=== PATIENT | female | born 1955 | race Caucasian/White ===

== ENCOUNTER → 2016-11-09 | Outpatient (REF) | payer BC | LOC: M LAB REF 17:24 | PROVIDERS: ATTEND Physician Assistant Medical | DX: J11.1 Influenza due to unidentified influenza virus with other respiratory manifestations (principal) ==

== ENCOUNTER → 2017-01-27 | Outpatient (CLI) | payer BC ==
--- NOTE | 2017-01-27 13:22 | REPMRS ---
Patient History The patient states she had a clinical breast exam in 12/2016. Patient is postmenopausal and is nulliparous. Family history of breast cancer in maternal aunt at age 50 or over and breast cancer in maternal cousin at age 50 or over. Digital Woman Screen Mammo: January 27, 2017 - Exam #: [id number] Bilateral CC and MLO view(s) were taken. Technologist: Fior Miller, Technologist Prior study comparison: June 28, 2014, digital woman screen mammo performed at [facility]. FINDINGS: There are scattered fibroglandular densities. There has been no change in the appearance of the mammogram from the prior studies. There is a mild amount of residual fibroglandular tissue which is fairly symmetric. There is no interval development of dominant mass, architectural distortion, or clustered microcalcification suggestive of malignancy. ASSESSMENT: BI-RADS/ACR category 1 mammogram. Negative. Recommendation Routine screening mammogram in 1 year (for women over age 40). This mammogram was interpreted with the aid of an FDA-approved computer-aided dectection system. Electronically Signed By: Constantin Hawley MD 01/27/17 [id number]
== END ==
LOC: M WHC 10:49
PROVIDERS: ATTEND Physician Assistant
DX: Z12.31 Encounter for screening mammogram for malignant neoplasm of breast (principal)

== ENCOUNTER 2017-07-30 11:02 | Inpatient (IN) | payer MEDICAID, OTHER ==
[~2017-07-30] VITALS: Ht 142.2 cm; Wt 78.2 kg
[2017-07-30] MEDS ORDERED: LEVO25TA5 PO (11:15)
[2017-07-30] MEDS ORDERED: BREO1INH3 INH (11:15)
[2017-07-30 11:52] LABS: MEAN CORPUSCULAR HEMOGLOBIN 26.5 pg (27.0-33.0); MEAN CORPUSCULAR HGB CONC 32.2 g/dl (32.0-36.5); MEAN CORPUSCULAR VOLUME 82.2 fl (80.0-96.0); PLATELET COUNT, AUTOMATED 362 10^3/uL (150-450); RED CELL DISTRIBUTION WIDTH 14.5 % (11.5-14.5); WHITE BLOOD COUNT 8.9 10^3/uL (4.0-10.0)
[2017-07-30 12:24] LABS: METHADONE URINE NEGATIVE (NEGATIVE)
[2017-07-30 12:33] LABS: ALBUMIN 3.8 GM/DL (3.2-5.2); ALKALINE PHOSPHATASE 129 U/L (45-117); ALT/SGPT 24 U/L (12-78); ANION GAP 4 MEQ/L (8-16); AST/SGOT 17 U/L (7-37); BILIRUBIN,DIRECT 0.2 MG/DL (0.0-0.2); BILIRUBIN,TOTAL 0.9 MG/DL (0.2-1.0); BLOOD UREA NITROGEN 5 MG/DL (7-18); CALCIUM LEVEL 9.1 MG/DL (8.8-10.2); CARBON DIOXIDE LEVEL 31 MEQ/L (21-32); CHLORIDE LEVEL 103 MEQ/L (98-107); CREATININE FOR GFR 0.61 MG/DL (0.55-1.02); GLOMERULAR FILTRATION RATE > 60.0 (>45); GLUCOSE, FASTING 99 MG/DL (80-110); POTASSIUM SERUM 4.4 MEQ/L (3.5-5.1); SODIUM LEVEL 138 MEQ/L (136-145); TOTAL PROTEIN 7.6 GM/DL (6.4-8.2)
[2017-07-30 16:20] VITALS: BP 160/70
[2017-07-30] MEDS ORDERED: ACETAMINOPHEN TAB 650MG DOSE (2X325MG) PO PRN (17:30)
[2017-07-30] MEDS ORDERED: MOM 30ML SUSPENSION UDC PO PRN (17:30)
[2017-07-30] MEDS ORDERED: traZODone 50 MG TAB PO PRN (17:30)
[2017-07-30] MEDS ORDERED: MAALOX 30 ML SUSP *UDC PO PRN (17:30)
[2017-07-30] MEDS: ADVAIR HFA 230/21MCG INHALER INH SCH (22:09)
[2017-07-31] MEDS ORDERED: LEVOTHYROXINE 25MCG TABLET (0.025MG) PO SCH (06:00)
[2017-07-31 06:14] VITALS: BP 148/67
[2017-07-31] MEDS ORDERED: ARIPiprazole 2 MG TAB PO SCH (09:00)
--- NOTE | 2017-07-31 09:03 | HPEPDOC ---
[facility] Medical History & Physical Date of Admission Jul 30, 2017 History and Physical PCP: Alfonso DUDLEY ATTENDING: Dr. Jan Rashid HPI: 61yoF admitted to [facility] for depressive disorder, being medically examined today. No acute medical complaints today. Denies any fevers, chills, weakness, fatigue, JUAREZ, CP, SOB, cough, palpitations, abdominal pain, N/V/D or changes in bowel or bladder habits. PMHx: COPD hypothyroid Anxiety depression H/O SI, OD. PSHX: denies SOCHX: Resides in: [facility] Marital Status: single Kids: none Employment: unemployed Tobacco use: denies ETOH: 1-2 beer per week. Illicit Drugs: Denies IV Drug Use: Denies Tattoos done unprofessionally: Denies FAMHX: Mother: , CVA Father: , CVA Siblings: One brother Alive, CAD/MT Children: None Unexpected deaths due to medical reasons: None. ROS: As noted in HPI, otherwise 11pt ROS of systems reviewed and remarkable only for LMP NA, post menopausal. PE: GEN: 61 yo F, appears stated age. Well-nourished, well developed. No acute distress. Alert and oriented x 3. Does not make any eye contact. HEENT: Normocephalic, atraumatic. Pupils are equal, round, and reactive to light. Extraocular movements are intact. No nystagmus appreciated. Sclera are nonicteric. Conjunctiva without injection. Nose midline. Nasal turbinates without bogginess. EACs both patent BL. TMs both visualized and francois with good cone of light, no bulging or erythema. No facial asymmetry. Moist mucous membranes. Dentition fair. Pharynx pink and moist, no cobblestoning. Neck supple , trachea midline. No lymphadenopathy or thyromegaly appreciated. CHEST: Regular rate and rhythm, +S1, +S2 LUNGS: Clear to auscultation bilaterally. No wheezes, rales, or rhonchi. Breathing appears symmetric and easy. Patient is speaking in full sentences. No accessory muscle use. ABD: Round, soft, non-tender, non-distended. +Bowel sounds throughout. No rebound or guarding. No costovertebral angle tenderness. EXT: Pulses 2+ bilaterally dorsalis pedis and radial. No lower extremity edema appreciated. SKIN: [place], dry, warm. Capillary refill <2sec. No rashes. NEURO: Alert and oriented x 3. Cranial nerves III-XII are intact. No focal deficits appreciated. EKG: Pending A&P: 61yoF admitted to [facility] for depressive disorder 1. Psych. Plan per Psychiatry. Obtain baseline EKG to assure the safety of psychiatric medications as they can prolong the QT interval. 2. Hypothyroidism. Continue Synthroid 25 g by mouth daily. Abnormal TSH noted, check thyroid profile in a.m. 3. COPD. Continue Advair 2 inhalations twice a day. Resume Breo Ellipta at discharge. 4. Follow up with PCP on discharge. 5. Staff member Hemalatha GUTIERREZ present throughout exam. Vital Signs Vital Signs Date Time Temp Pulse Resp B/P (MAP) Pulse Ox O2 Delivery O2 Flow Rate FiO2 07/31/17 06:14 97.6 63 20 148/67 (94) 07/30/17 14:15 96 Room Air Laboratory Data Labs 24H Laboratory Tests 2 07/30/17 11:34: Nucleated Red Blood Cells % (auto) 0.0, Anion Gap 4L, Glomerular Filtration Rate > 60.0, Calcium Level 9.1, Aspartate Amino Transf (AST/SGOT) 17, Alanine Aminotransferase (ALT/SGPT) 24, Alkaline Phosphatase 129H, Total Bilirubin 0.9, Direct Bilirubin 0.2, Total Protein 7.6, Albumin 3.8, Albumin/Globulin Ratio 1.00, Thyroid Stimulating Hormone (TSH) 5.430H, Salicylates Level < 1.7L, Urine Amphetamines Screen NEGATIVE, Urine Benzodiazepines Screen NEGATIVE, Urine Opiates Screen NEGATIVE, Urine Methadone Screen NEGATIVE, Acetaminophen Level < 2.0L, Urine Barbiturates Screen NEGATIVE, Urine Phencyclidine Screen NEGATIVE, Urine Cocaine Metabolite Screen NEGATIVE, Urine Cannabinoids Screen NEGATIVE, Ethyl Alcohol Level < 0.003 CBC/BMP Laboratory Tests 07/30/17 11:34 Red Blood Count 5.44 H, Mean Corpuscular Volume 82.2, Mean Corpuscular Hemoglobin 26.5 L, Mean Corpuscular Hemoglobin Concent 32.2, Red Cell Distribution Width 14.5 Home Medications Scheduled Fluticasone/Vilanterol (Breo Ellipta 200-25 Mcg/INH) 1 Inh Inh, 1 PUFF INH DAILY Levothyroxine Sodium (Synthroid) 25 Mcg Tab, 25 MCG PO DAILY Allergies Coded Allergies: No Known Allergies (Unverified , 07/30/17) Margarita Vasquez Jul 31, 2017 09:03
[2017-07-31] MEDS: ADVAIR HFA 230/21MCG INHALER INH SCH ×2 (09:43→21:54)
--- NOTE | 2017-07-31 11:36 | MHHPEPDOC ---
General Date Of Admission: Aug 29, 2017 Legal Status: 9.39 Chief Complaint As per ED note: "[facility] " I would get a gun and blow my brains out". Pt stats she does not have access to one but thinks about it if she could get one.. History of Present Illness HISTORY OF THE PRESENT ILLNESS: As per ED note: "Patient is a 61 -year-old , female, who Pt stated she went to her brother's on July for dinner and while she was out, her cabinets were emptied and all her checks were gone, a pillow she bought for someone as a gift was also missing. Pt stated she reported it to the police and was told " we'll look into it". When pt was asked why she was here today, she stated she was going to put a gun to her head and blow her brains out. Pt did not voice any stressors in her life at this time. Pt lives alone. Pt sees Yue Sal (PCP), Dr. Delgadillo for COPD and Taina Rodriguez for counseling. Pt spoke quiet and put her face in her blanket frequently which made it difficult to understand her at times". Psychiatric Review of Systems Depression (2 or more weeks): depressed mood, anhedonia, suicidal thoughts Slime (4 or more days of): denies Psychosis: denies PTSD: denies Anxiety: situational anxiety, stressor related anxiety Anxiety/ 6 months or more of: restlessness, keyed up Past Psychiatric History Previous Psychiatric Diagnosis: Bipolar disorder, she was diagnosed in 2005 Previous Psychiatric Admissions: she was hospitalized before (once) Suicide Attempts: She t0ok pills and it didn't work ( 10 years ago) Psychiatric Follow-up: Denies Psychiatric medications: Amitriptyline, Nortriptyline, Effexor, Paxil, Zoloft, Abilify Past Medical History Medical Problems COPD, Hypothyroidism Head Injury: Yes Seizures: No Hospitalizations: Yes Surgeries: No Family Medical/Psychiatric HX Medical Problems Stroke in both parents. Psychiatric Disorders: No Addiction: No Suicide Attemps/Completions: No Addiction History nicotine, alcohol Social History Childhood: She says she had a good childhood, she learned to work since an early age Abuse/Trauma:Denies. Current Living Situation: She lived at an apartment and she believes the person that broke in on July 20, knew her. she thinks it was an inside job and she feels very scared about it.. 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 Social Support: One of her friends. Legal: Denies Marital: Not , no children Mental Status Examination General Appearance: well groomed, hospital scubs/clothing Build: overweight Demeanor: hostile, guarded Eye Contact: avoidant Activity: anxious Behavior: cooperative Speech: rapid, pressured Mood: irritable Affect: labile Thought Process: logical/linear Thought Content (Delusions): persecutory, denies SI, HI, AVH Thought Content (Other): none reported, appears paranoid Thought Content (Aggressive): none reported Perception (Hallucinations): none reported Perception (Other): none reported Cognition (Impairment of): none reported Cognition(Intelligence Est.): average Oriented: Awake, Alert, Oriented times three Judgment: Poor Diagnoses 1. Bipolar disorder, manic 2. Generalized Anxiety disorder Assessment Patient said she would have put a gun to her head and blown her brains out and she is sorry that when she overdosed 10 years ago, she wasn't able to kill herself, but she is denying depressive symptoms, she is denying manic symptoms. However, she was irritable for most of the interview, was guarded, almost hostile. by the end of the interview she had relaxed and was not guarded anymore. She laughed and joked. I believe she is going through a manic episode and probably has paranoid delusions. I have asked her if she would like Abilify to be started and she agreed to it. Initial Treatment Plan 1. Patient was admitted on a 9.39 status. 2. Complete history was obtained. 3. With patients permission, family will be contacted and database will be expanded. 4. Patients medication regimen will be reviewed and changed accordingly. 5. Patient will be provided with protected environment. 6. Patient will be treated with individual, group, and milieu therapies. 7. Patient will receive supportive psych-education. 8. Discharge planning will commence immediately. 9. Outpatient follow-up treatment will be strongly recommended. 10. The initial treatment plan will focus initially on: * Depression. * Risk for suicide. * Substance abuse. ESTIMATED LENGTH OF STAY: 5-7DAYS. TIME SPENT COUNSELING AND COORDINATING INITIAL CARE: minutes. Vital Signs Vital Signs Date Time Temp Pulse Resp B/P (MAP) Pulse Ox O2 Delivery O2 Flow Rate FiO2 07/31/17 06:14 97.6 63 20 148/67 (94) 07/30/17 14:15 96 Room Air Medications Scheduled Fluticasone/Vilanterol (Breo Ellipta 200-25 Mcg/INH) 1 Inh Inh, 1 PUFF INH DAILY , (Reported) Levothyroxine Sodium (Synthroid) 25 Mcg Tab, 25 MCG PO DAILY, (Reported) Allergies Coded Allergies: No Known Allergies (Unverified , 07/30/17) ANURADHA MAURICIO MD Jul 31, 2017 11:36
--- NOTE | 2017-07-31 16:18 | ECGEPIP ---
Stationary ECG Study [facility] Test Date: 2017-07-31 Pat Name: DANNY JACKSON Department: Room: [place] [address] Gender: F Fagot Maker: NAOMI : 1955 Requested By: Margarita Vasquez Order Number: [id number] Reading MD: Karlie Marrero Measurements Intervals [place] Rate: 64 P: 49 MA: 156 QRS: 10 QRSD: 86 T: -2 QT: 380 QTc: 395 Interpretive Statements SINUS RHYTHM NONSPECIFIC STT-WAVE ABNORMALITY NO PRIOR Electronically Signed On 07-31-2017 16:17:41 EST by Karlie Marrero
[2017-07-31 18:00] VITALS: BP 138/63
[2017-08-01] MEDS: LEVOTHYROXINE 50MCG TABLET (0.05MG) PO SCH (06:17)
[2017-08-01 06:47] VITALS: BP 138/63
[2017-08-01 07:16] LABS: THYROXINE (T4) 11.3 UG/DL (4.5-12.0)
[2017-08-01] MEDS: ADVAIR HFA 230/21MCG INHALER INH SCH ×2 (09:05→20:20)
--- NOTE | 2017-08-01 15:17 | MHIPN ---
DATE: 08/01/2017 CHIEF COMPLAINT: Says is "doing fine." SUBJECTIVE: Seen for followup in the presence of staff. Says is doing fine and that moods are better but tends not to elaborate much. Says has been concerned about porter on at her place, including, she feels, people were moving things around in her place and possibly even taking them. Says suspects the management there of doing so. She has been there more than 10 years. Says this has never happened before. MENTAL STATUS EXAMINATION: She is lying bed with the bed sheets mostly over her and appears not wanting to engage much but is coherent. There is no agitation. No psychomotor retardation. Affect broad, somewhat incongruent with mood. Denies active suicidal thoughts or intents. No homicidal ideas or intents. Psychotic features cannot be completely ruled out in terms of paranoia. Cognition is grossly intact. Judgment and insight are quite questionable. ASSESSMENT: Bipolar disorder by history. PLAN: Continue current care and observations. Encourage participation in activities in the unit. Also continue with Abilify at a total of 7.5 mg a day.
[2017-08-01 18:00] VITALS: BP 129/71
[2017-08-02] MEDS: LEVOTHYROXINE 50MCG TABLET (0.05MG) PO SCH (06:09)
[2017-08-02] MEDS: ADVAIR HFA 230/21MCG INHALER INH SCH ×2 (08:59→20:56)
--- NOTE | 2017-08-02 16:51 | MHIPN ---
DATE: 08/02/2017 CHIEF COMPLAINT: Says feels good. SUBJECTIVE: Says has been doing well, reports no major difficulties, and that she had a good night, has been eating well. MENTAL STATUS EXAMINATION: Neat, cooperative, coherent. No agitation, no psychomotor retardation. Affect possibly mildly anxious. Denies any thoughts of harming herself or anyone else. No evidence of any psychosis at present. Judgment and insight fair. ASSESSMENT: Bipolar disorder by history. PLAN: Continue current care and participation in activities in the unit. She will be seeing the treatment team tomorrow.
[2017-08-02 18:00] VITALS: BP 132/60
[2017-08-03] MEDS: LEVOTHYROXINE 50MCG TABLET (0.05MG) PO SCH (06:14)
[2017-08-03 07:00] VITALS: BP 120/59
[2017-08-03] MEDS: ADVAIR HFA 230/21MCG INHALER INH SCH ×2 (08:08→21:01)
--- NOTE | 2017-08-03 12:44 | MHIPNPDOC ---
[facility] Progress Note Progress Note DATE OF SERVICE: 08/03/17 HISTORY: As per ED note: "[facility] " I would get a gun and blow my brains out". Pt stats she does not have access to one but thinks about it if she could get one.. History of Present Illness HISTORY OF THE PRESENT ILLNESS: As per ED note: "Patient is a 61 -year-old , female, who Pt stated she went to her brother's on July for dinner and while she was out, her cabinets were emptied and all her checks were gone, a pillow she bought for someone as a gift was also missing. Pt stated she reported it to the police and was told " we'll look into it". When pt was asked why she was here today, she stated she was going to put a gun to her head and blow her brains out. Pt did not voice any stressors in her life at this time. Pt lives alone. Pt sees Yue Sal (PCP), Dr. Delgadillo for COPD and Taina Rodriguez for counseling. Pt spoke quiet and put her face in her blanket frequently which made it difficult to understand her at times" VITAL SIGNS: See below. NEW TEST RESULTS: N/A CURRENT MEDICATIONS: See below. MENTAL STATUS EXAMINATION: Patient is a 61 year old female, who is alert, cooperative, good eye contact, dressed in personal clothes, fair grooming. Speech: Is Coherent Language skills are Good. Thought processes including: Linear, logical Thought content: Anxious thoughts about not feeling safe at her apartment. Abstract reasoning, and computation: Fair. Description of associations: Good. Description of abnormal or psychotic thoughts: Denies SI/HI, A/V hallucinations , thought delusions. Judgment: Improving. Insight: Improving. Orientation: Oriented x 3 Recent and remote memory: Intact Attention span and concentration: Good Language: Good Fund of knowledge: Adequate Mood: Anxious Affect: Anxious DIAGNOSES: 1. Bipolar disorder, manic 2. Generalized Anxiety disorder ASSESSMENT:Patient feels very anxious about returning home. Maybe we can look for alternative housing to keep her away from her apartment complex. MANAGEMENT PLAN: Patient's medications have been updated. she feels Abilify is working well for her. Increased it to 10 mgs. PO QHS and 5 mgs in AM. She will be receiving Zoloft 25 mgs PO QAM for depression/anxiety ( a minimal dose in order to not provoke mayte) and her levothyroxine was increased to 75 mcg. TIME SPENT: 20 minutes. Vital Signs Vital Signs Date Time Temp Pulse Resp B/P (MAP) Pulse Ox O2 Delivery O2 Flow Rate FiO2 08/03/17 07:00 99.3 63 16 120/59 (79) 08/01/17 06:47 Room Air 07/30/17 14:15 96 Current Medications Current Medications Acetaminophen (Tylenol Tab) 650 mg Q6HP PRN PO HEADACHE or DISCOMFORT; Start 07/30/17 at 17:30; Stop 08/29/17 at 17:29 Al Hydrox/Mg Hydrox/Simethicone (Mylanta) 30 ml Q4HP PRN PO HEARTBURN/ INDIGESTION; Start 07/30/17 at 17:30; Stop 08/29/17 at 17:29 Aripiprazole (AbiLIFY) 2 mg BID PO ; Start 07/31/17 at 09:00; Stop 07/31/17 at 12:24; Status DC Aripiprazole (AbiLIFY) 2.5 mg QAM PO Last administered on 08/03/17 08:07; Start 08/01/17 at 09:00; Stop 08/30/17 at 08:59 Aripiprazole (AbiLIFY) 5 mg QHS PO Last administered on 08/02/17 20:56; Start 07/31/17 at 21:00; Stop 08/30/17 at 20:59 Home Med (Med Rec Complete!) ASDIRECTED XX ; Start 07/30/17 at 14:30; Stop at 14:32; Status DC Levothyroxine Sodium (Synthroid) 25 mcg DAILY@0600 PO Last administered on 07/31 06:46; Start 07/31/17 at 06:00; Stop 07/31/17 at 12:06; Status DC Levothyroxine Sodium (Synthroid) 50 mcg DAILY@0600 PO Last administered on 08/03 06:14; Start 08/01/17 at 06:00; Stop 08/31/17 at 05:59 Magnesium Hydroxide (Milk Of Magnesia) 30 ml DAILYPRN PRN PO CONSTIPATION; Start 07/30/17 at 17:30; Stop 08/29/17 at 17:29 Salmeterol Xinafoate/ Fluticasone (Advair Hfa 230/ 21) 2 puff BID INH Last administered on 08/03/17t 08:08; Start 07/30/17 at 21:00; Stop 08/29/17 at 20: 59 Trazodone HCl (Desyrel) 50 mg QHSP PRN PO INSOMNIA; Start 07/30/17 at 17:30; Stop 08/29/17 at 17:29 Allergies Coded Allergies: No Known Allergies (Unverified , 07/30/17) ANURADHA MAURICIO MD Aug 03, 2017 12:44
[2017-08-03] MEDS: SERTRALINE HCL 25 MG TABLET PO SCH (12:47)
[2017-08-03 18:00] VITALS: BP 144/67
[2017-08-03] MEDS ORDERED: ARIPiprazole 10 MG TAB PO SCH (21:00)
[2017-08-04 06:00] VITALS: BP 122/60
[2017-08-04] MEDS ORDERED: LEVOTHYROXINE 75MCG TABLET (0.075MG) PO SCH (06:00)
[2017-08-04] MEDS: ADVAIR HFA 230/21MCG INHALER INH SCH (08:21)
[2017-08-04] MEDS: SERTRALINE HCL 25 MG TABLET PO SCH (08:21)
--- NOTE | 2017-08-04 10:27 | MHIPNPDOC ---
[facility] Progress Note Progress Note DATE OF SERVICE: 08/04/17 HISTORY: As per ED note: "[facility] " I would get a gun and blow my brains out". Pt stats she does not have access to one but thinks about it if she could get one.. History of Present Illness HISTORY OF THE PRESENT ILLNESS: As per ED note: "Patient is a 61 -year-old , female, who Pt stated she went to her brother's on July for dinner and while she was out, her cabinets were emptied and all her checks were gone, a pillow she bought for someone as a gift was also missing. Pt stated she reported it to the police and was told " we'll look into it". When pt was asked why she was here today, she stated she was going to put a gun to her head and blow her brains out. Pt did not voice any stressors in her life at this time. Pt lives alone. Pt sees Yue Sal (PCP), Dr. Delgadillo for COPD and Taina Rodriguez for counseling. Pt spoke quiet and put her face in her blanket frequently which made it difficult to understand her at times" VITAL SIGNS: See below. NEW TEST RESULTS: N/A CURRENT MEDICATIONS: See below. MENTAL STATUS EXAMINATION: Patient is a 61 year old female, who is pleasant, cooperative, with good eye contact, dressed in hospital clothes Speech: Is spontaneous and fluent Language skills are intact Thought processes including: Linear, rational Thought content: Anxious thoughts about not feeling safe at her apartment. Abstract reasoning, and computation: Fair. Description of associations: Good. Description of abnormal or psychotic thoughts: Denies SI/HI, A/V hallucinations , thought delusions. Judgment: Improved Insight: Improved Orientation: Oriented x 3 Recent and remote memory: Intact Attention span and concentration: Good Language: Good Fund of knowledge: Adequate Mood: Euthymic Affect: Euthymic DIAGNOSES: 1. Bipolar disorder, manic 2. Generalized Anxiety disorder ASSESSMENT: Patient is in a better mood, she's ready to be discharged, she's not suicidal, not homicidal and not psychotic. She will be going back to her apartment and in one month she will try to go somewher else because she continues to feel threatened by whoever broke into it. She's going back now because nik already paid the rent for it. MANAGEMENT PLAN: Will d/c her on the same meds. TIME SPENT: 20 minutes. Vital Signs Vital Signs Date Time Temp Pulse Resp B/P (MAP) Pulse Ox O2 Delivery O2 Flow Rate FiO2 08/04/17 06:00 97.8 60 14 122/60 (80) 08/01/17 06:47 Room Air 07/30/17 14:15 96 Current Medications Current Medications Acetaminophen (Tylenol Tab) 650 mg Q6HP PRN PO HEADACHE or DISCOMFORT; Start 07/30/17 at 17:30; Stop 08/29/17 at 17:29 Al Hydrox/Mg Hydrox/Simethicone (Mylanta) 30 ml Q4HP PRN PO HEARTBURN/ INDIGESTION; Start 07/30/17 at 17:30; Stop 08/29/17 at 17:29 Aripiprazole (AbiLIFY) 2 mg BID PO ; Start 07/31/17 at 09:00; Stop 07/31/17 at 12:24; Status DC Aripiprazole (AbiLIFY) 2.5 mg QAM PO Last administered on 08/03/17 08:07; Start 08/01/17 at 09:00; Stop 08/03/17 at 12:32; Status DC Aripiprazole (AbiLIFY) 5 mg QAM PO Last administered on 08/04/17 08:21; Start 08/04/17 at 09:00; Stop 09/03/17 at 08:59 Aripiprazole (AbiLIFY) 5 mg QHS PO Last administered on 08/02/17 20:56; Start 07/31/17 at 21:00; Stop 08/03/17 at 12:40; Status DC Aripiprazole (AbiLIFY) 10 mg QHS PO Last administered on 08/03/17 21:01; Start 08/03/17 at 21:00; Stop 09/02/17 at 20:59 Home Med (Med Rec Complete!) ASDIRECTED XX ; Start 07/30/17 at 14:30; Stop at 14:32; Status DC Levothyroxine Sodium (Synthroid) 25 mcg DAILY@0600 PO Last administered on 07/31 06:46; Start 07/31/17 at 06:00; Stop 07/31/17 at 12:06; Status DC Levothyroxine Sodium (Synthroid) 50 mcg DAILY@0600 PO Last administered on 08/03 06:14; Start 08/01/17 at 06:00; Stop 08/03/17 at 12:33; Status DC Levothyroxine Sodium (Synthroid) 75 mcg DAILY@0600 PO Last administered on 08/04 05:46; Start 08/04/17 at 06:00; Stop 09/03/17 at 05:59 Magnesium Hydroxide (Milk Of Magnesia) 30 ml DAILYPRN PRN PO CONSTIPATION; Start 07/30/17 at 17:30; Stop 08/29/17 at 17:29 Salmeterol Xinafoate/ Fluticasone (Advair Hfa 230/ 21) 2 puff BID INH Last administered on 08/04/17 08:21; Start 07/30/17 at 21:00; Stop 08/29/17 at 20: 59 Sertraline HCl (Zoloft) 25 mg DAILY PO Last administered on 08/04/17 08:21; Start 08/03/17 at 09:00; Stop 09/02/17 at 08:59 Trazodone HCl (Desyrel) 50 mg QHSP PRN PO INSOMNIA; Start 07/30/17 at 17:30; Stop 08/29/17 at 17:29 Allergies Coded Allergies: No Known Allergies (Unverified , 07/30/17) ANURADHA MAURICIO MD Aug 04, 2017 10:27
[2017-08-04] MEDS ORDERED: TRAZO50TA PO (13:26)
[2017-08-04] MEDS ORDERED: ARIP5TA PO (13:26)
[2017-08-04] MEDS ORDERED: SERT25TA PO (13:26)
[2017-08-04] MEDS ORDERED: ARIP10TAB PO ×4 (13:26→13:59)
[2017-08-04] MEDS ORDERED: LEVO75TA4 PO (13:26)
[2017-08-04] MEDS ORDERED: ARIP1TAB2 PO (13:47)
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
== END 2017-08-04 14:05 | disposition home or self-care (01) | DRG 885 ==
LOC: M ED 11:02 → M ED INP 12:39 → M PSY 15:07
PROVIDERS: ADMIT Psychiatry & Neurology Psychiatry; ATTEND Psychiatry & Neurology Psychiatry
DX: F31.9 Bipolar disorder, unspecified (principal); F41.1 Generalized anxiety disorder; J44.9 Chronic obstructive pulmonary disease, unspecified; E03.9 Hypothyroidism, unspecified; Z79.899 Other long term (current) drug therapy

== ENCOUNTER → 2017-09-23 | Outpatient (REF) | payer MEDICAID ==
[2017-09-23 12:45] LABS: BASO # 0.1 10^3/uL (0.0-0.2); BASO % 0.9 % (0.0-1.0); EOS # 0.5 10^3/uL (0.0-0.50); EOS % 5.7 % (0.0-3.0); HEMATOCRIT 42.9 % (36.0-47.0); HEMOGLOBIN 13.7 g/dl (12.0-16.0); IMMATURE GRANULOCYTE % 0.3 % (0-0); LYMPH # 1.1 10^3/uL (1.5-4.5); MEAN CORPUSCULAR HEMOGLOBIN 26.4 pg (27.0-33.0); MEAN CORPUSCULAR HGB CONC 31.9 g/dl (32.0-36.5); MEAN CORPUSCULAR VOLUME 82.8 fl (80.0-96.0); MONO # 0.4 10^3/uL (0.0-0.8); NEUTROPHILS # 6.5 10^3/uL (1.8-7.7); NEUTROPHILS % 75.1 % (36.0-66.0); PLATELET COUNT, AUTOMATED 326 10^3/uL (150-450); RED BLOOD COUNT 5.18 10^6/uL (4.00-5.40); RED CELL DISTRIBUTION WIDTH 14.4 % (11.5-14.5); WHITE BLOOD COUNT 8.6 10^3/uL (4.0-10.0)
[2017-09-23 13:26] LABS: ALBUMIN/GLOBULIN RATIO 1.14 (1.00-1.93); ALKALINE PHOSPHATASE 122 U/L (45-117); ALT/SGPT 24 U/L (12-78); ANION GAP 6 MEQ/L (8-16); AST/SGOT 24 U/L (7-37); BILIRUBIN,TOTAL 0.8 MG/DL (0.2-1.0); BLOOD UREA NITROGEN 10 MG/DL (7-18); CALCIUM LEVEL 8.7 MG/DL (8.8-10.2); CARBON DIOXIDE LEVEL 31 MEQ/L (21-32); CHLORIDE LEVEL 102 MEQ/L (98-107); CHOLESTEROL LEVEL 272 MG/DL (<200); CHOLESTEROL RISK RATIO 3.126 (<5); CREATININE FOR GFR 0.72 MG/DL (0.55-1.02); GLOMERULAR FILTRATION RATE > 60.0 (>45); GLUCOSE, FASTING 76 MG/DL (70-100); HDL CHOLESTEROL 87 MG/DL (>40); LDL CHOLESTEROL 165.2 MG/DL (<100); NON-HDL-C 185 MG/DL; POTASSIUM SERUM 4.6 MEQ/L (3.5-5.1); SODIUM LEVEL 139 MEQ/L (136-145); TOTAL PROTEIN 7.5 GM/DL (6.4-8.2); TRIGLYCERIDES LEVEL 99 MG/DL (<150)
[2017-09-23 13:35] LABS: ESTIMATED AVERAGE GLUCOSE 103 MG/DL (60-110); HEMOGLOBIN A1c 5.2 %
[2017-09-23 13:40] LABS: HEPATITIS B SURFACE ANTIBODY NEGATIVE (POSITIVE)
[2017-09-23 14:13] LABS: HEPATITIS C VIRUS ABY INDEX < 0.0 INDEX (<0.8)
[2017-09-23 14:14] LABS: HIV 1&2 SCREEN CENTAUR NEGATIVE (NEGATIVE)
== END ==
LOC: M LAB REF 11:51
DX: Z00.01 Encounter for general adult medical examination with abnormal findings (principal); E03.8 Other specified hypothyroidism; E66.01 Morbid (severe) obesity due to excess calories
CPT/HCPCS: 84443

== ENCOUNTER → 2017-10-01 | Outpatient (REF) | payer MEDICAID, MEDICARE, BC ==
[2017-10-01 13:57] LABS: APPEARANCE, URINE HAZY (CLEAR); BACTERIA, URINE AUTO NEGATIVE (NEGATIVE); BILIRUBIN, URINE AUTO NEGATIVE (NEGATIVE); BLOOD, URINE BLOOD NEGATIVE (NEGATIVE); CALCIUM OXALATE CRYSTALS MODERATE; COLOR, URINE YELLOW (YELLOW); GLUCOSE, URINE (UA) AUTO NEGATIVE (NEGATIVE); KETONE, URINE AUTO NEGATIVE (NEGATIVE); LEUKOCYTE ESTERASE, URINE AUTO NEGATIVE (NEGATIVE); MUCUS, URINE SMALL (NEGATIVE); NITRITE, URINE AUTO NEGATIVE (NEGATIVE); PROTEIN, URINE AUTO NEGATIVE (NEGATIVE); RBC, URINE AUTO 1 /HPF (0-3); SPECIFIC GRAVITY URINE AUTO 1.017 (1.002-1.035); SQUAMOUS EPITHELIAL CELL UR AU 2 /HPF (0-6); WBC, URINE AUTO 2 /HPF (0-3)
== END ==
LOC: M SMT 13:10
DX: R35.1 Nocturia (principal)

== ENCOUNTER → 2018-02-16 | Outpatient (REF) | LOC: M SMT 15:22 | DX: Z02.71 Encounter for disability determination (principal); M17.11 Unilateral primary osteoarthritis, right knee; M85.88 Other specified disorders of bone density and structure, other site; M51.37 Other intervertebral disc degeneration, lumbosacral region; M25.78 Osteophyte, vertebrae ==

== ENCOUNTER → 2018-03-05 | Outpatient (REF) | payer MEDICAID, MEDICARE, BC ==
[2018-03-05 19:00] LABS: THYROID STIMULATING HORMONE 0.163 uIU/ML (0.358-3.740)
[2018-03-05 19:00] LABS: VITAMIN B12 LEVEL 640 PG/ML
[2018-03-05 19:02] LABS: FOLATE 5.7 NG/ML
== END ==
LOC: M LAB REF 16:36
DX: G20 Parkinson's disease (principal)

== ENCOUNTER → 2018-03-12 | Outpatient (CLI) | payer MEDICARE, MEDICAID | LOC: M CARPUL 08:34 | DX: R06.01 Orthopnea (principal); R06.02 Shortness of breath | CPT/HCPCS: 93306 ==

== ENCOUNTER → 2018-06-14 | Outpatient (REF) | payer MEDICARE, MEDICAID | LOC: M LAB REF 11:34 | DX: E03.8 Other specified hypothyroidism (principal) | CPT/HCPCS: 84443 ==

== ENCOUNTER → 2018-07-01 | Outpatient (CLI) | payer OTHER, MEDICAID, MEDICARE ==
[2018-07-01 17:40] LABS: BASO # 0.1 10^3/uL (0.0-0.2); BASO % 0.7 % (0.0-1.0); EOS # 0.2 10^3/uL (0.0-0.50); EOS % 2.4 % (0.0-3.0); HEMATOCRIT 38.7 % (36.0-47.0); HEMOGLOBIN 12.4 g/dl (12.0-15.5); IMMATURE GRANULOCYTE % 0.3 % (0-3.0); LYMPH # 1.7 10^3/uL (1.5-4.5); LYMPH % 18.2 % (24.0-44.0); MEAN CORPUSCULAR HEMOGLOBIN 27.5 pg (27.0-33.0); MEAN CORPUSCULAR VOLUME 85.8 fl (80.0-96.0); MONO # 0.5 10^3/uL (0.0-0.8); MONO % 5.2 % (0.0-5.0); NEUTROPHILS # 6.7 10^3/uL (1.8-7.7); NEUTROPHILS % 73.2 % (36.0-66.0); PLATELET COUNT, AUTOMATED 264 10^3/uL (150-450); RED BLOOD COUNT 4.51 10^6/uL (4.00-5.40); RED CELL DISTRIBUTION WIDTH 14.2 % (11.5-14.5); WHITE BLOOD COUNT 9.1 10^3/uL (4.0-10.0)
[2018-07-01 17:50] LABS: ESTIMATED AVERAGE GLUCOSE 100 MG/DL (60-110); HEMOGLOBIN A1c 5.1 %
[2018-07-01 18:00] LABS: POS COUNT POS FLAG
[2018-07-01 18:07] LABS: ERYTHROCYTE SEDIMENTATION RATE 42 mm/hr (0-30)
[2018-07-01 18:11] LABS: ALBUMIN 3.7 GM/DL (3.2-5.2); ALBUMIN/GLOBULIN RATIO 1.09 (1.00-1.93); ALKALINE PHOSPHATASE 110 U/L (45-117); ALT/SGPT 18 U/L (12-78); ANION GAP 5 MEQ/L (8-16); AST/SGOT 18 U/L (7-37); BILIRUBIN,TOTAL 0.7 MG/DL (0.2-1.0); BLOOD UREA NITROGEN 3 MG/DL (7-18); CALCIUM LEVEL 9.3 MG/DL (8.8-10.2); CARBON DIOXIDE LEVEL 30 MEQ/L (21-32); CHLORIDE LEVEL 102 MEQ/L (98-107); CREATININE FOR GFR 0.66 MG/DL (0.55-1.30); GLOMERULAR FILTRATION RATE > 60.0 (>45); GLUCOSE, FASTING 81 MG/DL (70-100); POTASSIUM SERUM 4.1 MEQ/L (3.5-5.1); RHEUMATOID FACTOR QUANT < 10.0 IU/ML (<15.0); SODIUM LEVEL 137 MEQ/L (136-145); TOTAL PROTEIN 7.1 GM/DL (6.4-8.2)
[2018-07-01 18:13] LABS: FOLATE 11.3 NG/ML (>5.4)
[2018-07-06 13:39] LABS: ALPHA-1-GLOBULIN % 5.9 % (2.9-4.9)
[2018-07-06 13:40] LABS: ALBUMIN 3.98 GM/DL (3.29-5.55); ALPHA-1-GLOBULINS 0.42 GM/DL (0.17-0.41); ALPHA-2-GLOBULINS 1.08 GM/DL (0.42-0.99); ALPHA-2-GLOBULINS % 15.2 % (7.1-11.8); BETA-1-GLOBULINS 0.53 GM/DL (0.28-0.60); BETA-1-GLOBULINS % 7.4 % (4.7-7.2); BETA-2-GLOBULINS 0.38 GM/DL (0.19-0.55); BETA-2-GLOBULINS % 5.4 % (3.2-6.5); GAMMA GLOBULIN % 10.1 % (11.1-18.8); GAMMA GLOBULINS 0.72 GM/DL (0.65-1.58)
== END ==
LOC: M LAB 16:30
DX: R26.9 Unspecified abnormalities of gait and mobility (principal)
CPT/HCPCS: 82746

== ENCOUNTER → 2018-08-10 | Outpatient (REF) | payer OTHER ==
[2018-08-16 08:06] LABS: HPV HYBRID CAPTURE II Negative (Negative)
== END ==
LOC: M SFHCWAGY 10:24
DX: Z12.4 Encounter for screening for malignant neoplasm of cervix (principal)

== ENCOUNTER → 2018-10-19 | Outpatient (CLI) | payer OTHER, MEDICAID ==
[~2018-10-19] MED LIST: ARIP10TAB PO; ARIP1TAB2 PO; ARIP5TA PO; BREO1INH3 INH; LEVO25TA5 PO; LEVO75TA4 PO; SERT25TA PO; TRAZO50TA PO
[2018-10-19 12:29] LABS: BASO % 0.4 % (0.0-1.0); EOS # 0.2 10^3/uL (0.0-0.50); EOS % 1.9 % (0.0-3.0); HEMATOCRIT 40.6 % (36.0-47.0); LYMPH # 1.4 10^3/uL (1.5-4.5); LYMPH % 13.6 % (24.0-44.0); MEAN CORPUSCULAR HEMOGLOBIN 26.6 pg (27.0-33.0); MEAN CORPUSCULAR VOLUME 83.2 fl (80.0-96.0); MONO # 0.6 10^3/uL (0.0-0.8); NEUTROPHILS # 7.9 10^3/uL (1.8-7.7); NEUTROPHILS % 77.2 % (36.0-66.0); PLATELET COUNT, AUTOMATED 368 10^3/uL (150-450); RED BLOOD COUNT 4.88 10^6/uL (4.00-5.40); WHITE BLOOD COUNT 10.2 10^3/uL (4.0-10.0)
[2018-10-19 13:04] LABS: ALBUMIN 3.7 GM/DL (3.2-5.2); ALT/SGPT 25 U/L (12-78); BILIRUBIN,TOTAL 0.7 MG/DL (0.2-1.0); BLOOD UREA NITROGEN 8 MG/DL (7-18); CALCIUM LEVEL 9.3 MG/DL (8.8-10.2); CARBON DIOXIDE LEVEL 33 MEQ/L (21-32); CHLORIDE LEVEL 97 MEQ/L (98-107); CHOLESTEROL LEVEL 237 MG/DL (<200); CHOLESTEROL RISK RATIO 4.557 (<5); CREATININE FOR GFR 0.58 MG/DL (0.55-1.30); FREE T3 2.8 PG/ML (2.2-4.0); FREE T4 1.36 NG/DL (0.76-1.46); GLOMERULAR FILTRATION RATE > 60.0 (>45); GLUCOSE, FASTING 94 MG/DL (70-100); HDL CHOLESTEROL 52 MG/DL (>40); LDL CHOLESTEROL 160 MG/DL (<100); NON-HDL-C 185 MG/DL; POTASSIUM SERUM 3.9 MEQ/L (3.5-5.1); SODIUM LEVEL 137 MEQ/L (136-145); TOTAL PROTEIN 7.2 GM/DL (6.4-8.2); TRIGLYCERIDES LEVEL 127 MG/DL (<150)
[2018-10-19 13:05] LABS: TOTAL 25(OH) VITAMIN D 29.6 NG/ML (30.0-100.0)
[2018-10-19 13:07] LABS: HEMOGLOBIN A1c 5.8 %
== END ==
LOC: M LAB 11:39
PROVIDERS: ATTEND Nurse Practitioner Family
DX: I10 Essential (primary) hypertension (principal); Z13.9 Encounter for screening, unspecified; E03.8 Other specified hypothyroidism

== ENCOUNTER → 2019-02-02 | Outpatient (REF) | payer OTHER, MEDICAID ==
[~2019-02-02] MED LIST changes: -ARIP10TAB PO; +ARIP1TAB PO; +ARIP1TAB6 PO; -ARIP5TA PO; -SERT25TA PO; +SERT25TA85 PO; +TRAZ1TAB10 PO; -TRAZO50TA PO
[2019-02-02 13:52] LABS: BASO % 0.4 % (0.0-1.0); EOS # 0.3 10^3/uL (0.0-0.50); EOS % 2.3 % (0.0-3.0); HEMATOCRIT 39.2 % (36.0-47.0); HEMOGLOBIN 12.4 g/dl (12.0-15.5); LYMPH # 1.3 10^3/uL (1.5-4.5); LYMPH % 12.1 % (24.0-44.0); MEAN CORPUSCULAR HEMOGLOBIN 26.8 pg (27.0-33.0); MEAN CORPUSCULAR HGB CONC 31.6 g/dl (32.0-36.5); MEAN CORPUSCULAR VOLUME 84.8 fl (80.0-96.0); MONO # 0.7 10^3/uL (0.0-0.8); NEUTROPHILS # 8.8 10^3/uL (1.8-7.7); NEUTROPHILS % 78.7 % (36.0-66.0); PLATELET COUNT, AUTOMATED 240 10^3/uL (150-450); RED BLOOD COUNT 4.62 10^6/uL (4.00-5.40); WHITE BLOOD COUNT 11.1 10^3/uL (4.0-10.0)
[2019-02-02 14:06] LABS: ALBUMIN 3.5 GM/DL (3.2-5.2); ALT/SGPT 35 U/L (12-78); BILIRUBIN,TOTAL 1.7 MG/DL (0.2-1.0); BLOOD UREA NITROGEN 8 MG/DL (7-18); CALCIUM LEVEL 9.1 MG/DL (8.8-10.2); CARBON DIOXIDE LEVEL 32 MEQ/L (21-32); CHLORIDE LEVEL 96 MEQ/L (98-107); CHOLESTEROL LEVEL 232 MG/DL (<200); CHOLESTEROL RISK RATIO 3.682 (<5); CREATININE FOR GFR 0.74 MG/DL (0.55-1.30); GLOMERULAR FILTRATION RATE > 60.0 (>45); GLUCOSE, FASTING 106 MG/DL (70-100); HDL CHOLESTEROL 63 MG/DL (>40); LDL CHOLESTEROL 155 MG/DL (<100); NON-HDL-C 169 MG/DL; POTASSIUM SERUM 3.3 MEQ/L (3.5-5.1); SODIUM LEVEL 136 MEQ/L (136-145); TOTAL PROTEIN 6.8 GM/DL (6.4-8.2); TRIGLYCERIDES LEVEL 72 MG/DL (<150)
[2019-02-02 15:17] LABS: HEMOGLOBIN A1c 5.7 %
== END ==
LOC: M LAB REF 12:31
PROVIDERS: ATTEND Nurse Practitioner Family
DX: I10 Essential (primary) hypertension (principal); R73.03 Prediabetes; Z13.9 Encounter for screening, unspecified

== ENCOUNTER 2019-02-19 16:24 | Inpatient (IN) | payer OTHER, MEDICAID ==
[~2019-02-19] VITALS: Ht 139.7 cm; Wt 95.0 kg
[2019-02-19] MEDS ORDERED: HYDR25TAB PO (16:41)
[2019-02-19] MEDS ORDERED: AMLO10TA PO (16:41)
[2019-02-19] MEDS ORDERED: ARIP1TAB PO (16:41)
[2019-02-19] MEDS ORDERED: POTA10CA32 PO (16:41)
[2019-02-19 17:10] LABS: BASO # 0.1 10^3/uL (0.0-0.2); BASO % 0.4 % (0.0-1.0); EOS # 0.1 10^3/uL (0.0-0.50); EOS % 0.9 % (0.0-3.0); HEMATOCRIT 37.6 % (36.0-47.0); HEMOGLOBIN 12.1 g/dl (12.0-15.5); LYMPH # 1.2 10^3/uL (1.5-4.5); LYMPH % 7.2 % (24.0-44.0); MEAN CORPUSCULAR HEMOGLOBIN 26.8 pg (27.0-33.0); MEAN CORPUSCULAR HGB CONC 32.2 g/dl (32.0-36.5); MEAN CORPUSCULAR VOLUME 83.4 fl (80.0-96.0); MONO # 0.6 10^3/uL (0.0-0.8); MONO % 3.6 % (0.0-5.0); NEUTROPHILS # 14.3 10^3/uL (1.8-7.7); PLATELET COUNT, AUTOMATED 465 10^3/uL (150-450); RED BLOOD COUNT 4.51 10^6/uL (4.00-5.40); WHITE BLOOD COUNT 16.4 10^3/uL (4.0-10.0)
[2019-02-19 17:31] LABS: ALBUMIN 3.8 GM/DL (3.2-5.2); BILIRUBIN,DIRECT 0.3 MG/DL (0.0-0.2); BILIRUBIN,TOTAL 0.7 MG/DL (0.2-1.0); C REACTIVE PROTEIN QUANTITATIV 7.27 MG/DL (0.00-0.30); CALCIUM LEVEL 9.4 MG/DL (8.8-10.2); CREATININE FOR GFR 1.03 MG/DL (0.55-1.30); GLOMERULAR FILTRATION RATE 57.6 (>45); POTASSIUM SERUM 3.7 MEQ/L (3.5-5.1); TOTAL PROTEIN 7.4 GM/DL (6.4-8.2)
[2019-02-19 17:43] LABS: ERYTHROCYTE SEDIMENTATION RATE 66 mm/hr (0-30)
--- NOTE | 2019-02-19 18:57 | REPVR ---
EXAM: US Duplex Left Lower Extremity Veins, Limited EXAM DATE/TIME: 02/19/2019 5:51 PM CLINICAL HISTORY: 63 years old, female; Pain; Leg, lower; Left; Additional info: R/O dvt TECHNIQUE: Imaging protocol: Real-time Duplex ultrasound of the Left Lower Extremity with 2-D francois scale, color Doppler flow and spectral waveform analysis. Limited exam focused on the left lower extremity veins. COMPARISON: No relevant prior studies available. FINDINGS: Left deep veins: Unremarkable. The common femoral, femoral, proximal profunda femoral and popliteal veins are patent without thrombus. Normal Doppler waveforms. Normal compressibility and/or augmentation response. Left superficial veins: Unremarkable. Saphenofemoral junction is patent without thrombus. Soft tissues: Unremarkable. IMPRESSION: No evidence of deep vein thrombosis. Electronically signed by: Shannon Pritchard On 02/19/2019 18:57:34 PM
[2019-02-19] MEDS ORDERED: CEFTAROLINE FOSAMIL 600 MG in D5W MINI-BAG PLUS 50 ML IV ONE (19:30)
[2019-02-19] MEDS ORDERED: MOM 30ML SUSPENSION UDC PO PRN (21:30)
[2019-02-19] MEDS ORDERED: SERT25TA88 PO (21:37)
[2019-02-19] MEDS ORDERED: MONT10TA2 PO (21:37)
[2019-02-19] MEDS ORDERED: SYNT75TA PO (21:37)
[2019-02-19 22:10] VITALS: BP 157/69
[2019-02-19] MEDS ORDERED: FUROSEMIDE 40 MG/4 ML VIAL (J1940) IV ONE (22:45)
--- NOTE | 2019-02-19 22:48 | HPEPDOC ---
General Date of Admission Feb 19, 2019 at 21:21 Date of Service: Feb 19, 2019 Chief Complaint The patient is a 63-year-old female admitted with a reason for visit of Cellulitis Of L Lower Extremity. Source: Patient, RN/MD, Old records Exam Limitations: No limitations Severity: Moderate History of Present Illness 63 year old female with PMH of Asthma, restrictive lung disease, pulmonary nodules, hypertension, morbid obesity, anxiety, depression , urge incontinence presented to the ED with 1 day history of redness and rash on both of her legs left greater than right. There is an area of redness with warmth and swelling located circumferentially just below the knee on the left extending down to the ankle. Above the knee there are erythematous maculo papular scattered rash. she has a burning pain in the area, about 3/10 in intensity located maximally around the left knee with increased swelling of the legs. She has few scattered red maculopapular rash just above the right knee on the inner thighs. She was admitted for for cellulitis. Home Medications Scheduled Amlodipine Besylate (Norvasc) 10 Mg Tablet, 10 MG PO DAILY, (Reported) Aripiprazole (Aripiprazole) 10 Mg Tablet, 5 MG PO QHS, (Reported) Fluticasone/Vilanterol (Breo Ellipta 200-25 Mcg INH) 1 Inh Inh, 1 PUFF INH DAILY, (Reported) Hydrochlorothiazide (Hydrochlorothiazide) 25 Mg Tablet, 25 MG PO DAILY, (Re ported) Levothyroxine Sodium (Synthroid) 75 Mcg Tablet, 75 MCG PO DAILY, (Reported) Montelukast Sodium (Montelukast Sodium) 10 Mg Tablet, 10 MG PO QHS, (Reported) Potassium Chloride (Potassium Chloride) 10 Meq Capsule.er, 10 MEQ PO DAILY, (Reported) Sertraline HCl (Sertraline HCl) 25 Mg Tablet, 25 MG PO DAILY, (Reported) Allergies Coded Allergies: No Known Allergies (Unverified , 07/30/17) Past Medical History Medical History HTN MORBID OBESITY BMI 50.8 DEPRESSION ASTHMA RESTRICTIVE LUNG DISEASE HYPOTHYROIDISM- MITRAL VALVE PROLAPSE HYPERCHOLESTEROLEMIA LUNG NODULES PER CT 01/2014, STABLE 05/2014 - GRANULOMATOUS DISEASE 12/2015 - PULMONARY FOLLOWING PFTS 03/06/14 - FCV 1.52, FEV1 1.29, FEV1/FVC 85 - AT LEAST MODERATE RESTRICTIVE VENTILATORY IMPAIRMENT 10/2015 - LEFT SHOULDER CALCIFIC TENDONITIS AND ARTHRITIS URGE INCONTINENCE Surgical History S/P CARDIAC CATH-06 Family History FATHER: , STROKE, PARKINSONS, ASTHMA, EMPHYSEMA, BEARD MOTHER: , STROKE 1 BROTHER(S) , 1 SISTER(S) - HEALTHY. SISTER HAS HAD KIDNEY STONES M. AUNT WITH BREAST CA AT 70, SISTER'S DAUGHTER WITH BREAST CA AT AGE 30, COUSIN WITH BREAST CA AT AGE 70. Social History * Smoker: Denies Alcohol: Denies Drugs: denies A-FIB/CHADSVASC A-FIB History Current/History of A-Fib/PAF?: No Review of Systems Constitutional: Denies: Chills, Fever, Night Sweats Eyes: Denies: Pain, Vision change ENT: Denies: Head Aches, Ear Pain, Dysphagia Skin: Reports: Rash, Lesions, Itching Pulmonary: Denies: Dyspnea, Cough Cardiovascular: Denies: Chest Pain, Palpitations, Orthopnea, Paroxysmal Noc. Dyspnea, Lt Headedness Gastrointestinal: Denies: Nausea, Vomiting, Abdominal Pain, Diarrhea Genitourinary: Denies: Dysuria, Frequency, Incontinence, Retention Hematologic: Denies: Bruising, Bleeding Excessively Musculoskeletal: Denies: Neck Pain, Back Pain, Joint Pain, Muscle Pain, Spasms Neurological: Denies: Weakness, Numbness, Change in speech, Confusion Physical Examination General Exam: Positive: Alert, Cooperative, No Acute Distress Eye Exam: Positive: PERRLA, Conjunctiva & lids normal, EOMI; Negative: Sclera icteric ENT Exam: Positive: Atraumatic, Mucous membr. moist/pink, Pharynx Normal Neck Exam: Positive: Supple; Negative: JVD, thyromegaly Chest Exam: Positive: Clear to auscultation, Wheezing, Diminished, Other (some wheezing heard from far probably conducted from upper airway) Heart Exam: Positive: Rate Normal, Regular Rhythm, Normal S1, Normal S2; Negative: Murmurs, Rubs Abdomen Exam: Positive: Normal bowel sounds, Soft; Negative: Tenderness, Hepatospenomegaly Extremity Exam: Positive: Edema, Tenderness, Swelling Skin Exam: Positive: Rash (on both the inner thighs red maculaopapular), Lesion (around the left knee area of inflammation extending to the ankle) Psych Exam: Positive: Memory Intact, Oriented x 3 Vital Signs Vital Signs Date Time Temp Pulse Resp B/P (MAP) Pulse Ox O2 Delivery O2 Flow Rate FiO2 02/19/19 22:07 98.2 95 20 137/67 (90) 93 Room Air Laboratory Data Labs 24H Laboratory Tests 2 02/19/19 16:54: Immature Granulocyte % (Auto) 0.9, White Blood Count 16.4H, Red Blood Count 4.51, Hemoglobin 12.1, Hematocrit 37.6, Mean Corpuscular Volume 83.4, Mean Corpuscular Hemoglobin 26.8L, Mean Corpuscular Hemoglobin Concent 32.2, Red Cell Distribution Width 15.0H, Platelet Count 465H, Neutrophils (%) (Auto) 87.0H, Lymphocytes (%) (Auto) 7.2L, Monocytes (%) (Auto) 3.6, Eosinophils (%) (Auto) 0 .9, Basophils (%) (Auto) 0.4, Neutrophils # (Auto) 14.3H, Lymphocytes # (Auto) 1.2L, Monocytes # (Auto) 0.6, Eosinophils # (Auto) 0.1, Basophils # (Auto) 0.1, Nucleated Red Blood Cells % (auto) 0.0, Erythrocyte Sedimentation Rate 66H, Anion Gap 7L, Glomerular Filtration Rate 57.6, Calcium Level 9.4, Aspartate Amino Transf (AST/SGOT) 28, Alanine Aminotransferase (ALT/SGPT) 27, Alkaline Phosphatase 118H, Total Bilirubin 0.7, Direct Bilirubin 0.3H, C-Reactive Protein, Quantitative 7.27H, Total Protein 7.4, Albumin 3.8, Albumin/Globulin Ratio 1.06 02/19/19 20:16: Lactic Acid Level 1.0 CBC/BMP Laboratory Tests 02/19/19 16:54 Red Blood Count 4.51, Mean Corpuscular Volume 83.4, Mean Corpuscular Hemoglobin 26.8 L, Mean Corpuscular Hemoglobin Concent 32.2, Red Cell Distribution Width 15.0 H, Neutrophils (%) (Auto) 87.0 H, Lymphocytes (%) (Auto) 7.2 L, Monocytes (%) (Auto) 3.6, Eosinophils (%) (Auto) 0.9, Basophils (%) (Auto) 0.4, Neutrophils # (Auto) 14.3 H, Lymphocytes # (Auto) 1.2 L, Monocytes # (Auto) 0.6, Eosinophils # (Auto) 0.1, Basophils # (Auto) 0.1 Microbiology Microbiology 02/19/19 Blood Culture, Received Pending 02/19/19 Blood Culture, Received Pending Assessment/Plan 63 year old female with PMH of Asthma, restrictive lung disease, pulmonary nodules, hypertension, morbid obesity, anxiety, depression presented to the ED with 1 day history of redness and rash on both of her legs left greater than right. There is an area of redness with warmth and swelling located circumferentially just below the knee on the left extending down to the ankle. Above the knee there are erythematous maculo papular scattered rash. she has a burning pain in the area, about 3/10 in intensity located maximally around the left knee with increased swelling of the legs. She has few scattered red maculopapular rash just above the right knee on the inner thighs. She was admitted for for cellulitis. Cellulitis will give ceftaroline Asthma/ restrictive lung disease/pulmonary nodules follow with pulmonary continue symbicort in place of breo and albuterol nebs Hypertension continue home meds Anxiety and depression continue Abilify Hypothyroid Synthroid Bipedal edema Had Echo in 2018 reviewed, no significant valvular abnormality, normal EF, no diastolic dysfunction, mild pulmonary hypertension 30 to 40 could be due to venous stasis will give lasix. Plan / VTE VTE Prophylaxis Ordered?: Yes FAUSTINO KINSEY MD Feb 19, 2019 22:48
[2019-02-19] MEDS: ALBUTEROL SULFATE 2.5 MG/0.5 ML INH NEB SOLN NEB SCH (23:36)
[2019-02-20] MEDS: ALBUTEROL SULFATE 2.5 MG/0.5 ML INH NEB SOLN NEB SCH ×4 (01:48→20:00)
[2019-02-20] MEDS ORDERED: ACETAMINOPHEN 500 MG TAB PO ONE (03:45)
[2019-02-20] MEDS ORDERED: ACETAMINOPHEN 500 MG TAB PO PRN (04:15)
[2019-02-20] MEDS: LEVOTHYROXINE 75MCG TABLET (0.075MG) PO SCH (05:22)
[2019-02-20 06:00] VITALS: BP 126/57
[2019-02-20 06:54] LABS: BASO % 0.3 % (0.0-1.0); EOS # 0.1 10^3/uL (0.0-0.50); EOS % 0.4 % (0.0-3.0); HEMATOCRIT 31.2 % (36.0-47.0); HEMOGLOBIN 10.1 g/dl (12.0-15.5); LYMPH % 8.2 % (24.0-44.0); MEAN CORPUSCULAR HEMOGLOBIN 26.9 pg (27.0-33.0); MEAN CORPUSCULAR HGB CONC 32.4 g/dl (32.0-36.5); MEAN CORPUSCULAR VOLUME 83.2 fl (80.0-96.0); MONO # 0.6 10^3/uL (0.0-0.8); MONO % 4.9 % (0.0-5.0); NEUTROPHILS # 10.3 10^3/uL (1.8-7.7); NEUTROPHILS % 85.5 % (36.0-66.0); PLATELET COUNT, AUTOMATED 383 10^3/uL (150-450); RED BLOOD COUNT 3.75 10^6/uL (4.00-5.40); WHITE BLOOD COUNT 12.1 10^3/uL (4.0-10.0)
[2019-02-20] MEDS: SYMBICORT 160/4.5MCG INHALER 6GM INH SCH ×2 (07:16→21:36)
[2019-02-20 07:29] LABS: BLOOD UREA NITROGEN 9 MG/DL (7-18); CALCIUM LEVEL 8.6 MG/DL (8.8-10.2); CARBON DIOXIDE LEVEL 33 MEQ/L (21-32); CHLORIDE LEVEL 98 MEQ/L (98-107); CREATININE FOR GFR 0.76 MG/DL (0.55-1.30); GLOMERULAR FILTRATION RATE > 60.0 (>45); GLUCOSE, FASTING 87 MG/DL (70-100); POTASSIUM SERUM 2.7 MEQ/L (3.5-5.1); SODIUM LEVEL 138 MEQ/L (136-145)
[2019-02-20] MEDS: DOCUSATE SODIUM 100 MG CAP PO SCH ×2 (08:07→21:18)
[2019-02-20] MEDS: CEFTAROLINE FOSAMIL 600 MG in D5W MINI-BAG PLUS 50 ML IV SCH ×2 (08:07→21:17)
[2019-02-20] MEDS: ENOXAPARIN 40 MG/0.4 ML SYRINGE (J1650) SC SCH (08:08)
[2019-02-20] MEDS: SERTRALINE HCL 25 MG TABLET PO SCH (08:08)
[2019-02-20] MEDS: amLODIPine 10 MG TAB PO SCH (08:13)
[2019-02-20] MEDS ORDERED: hydroCHLOROthiazide 25 MG TAB PO SCH (09:00)
[2019-02-20] MEDS ORDERED: SYMBICORT 80/4.5MCG INHALER 6GM INH SCH (09:00)
[2019-02-20] MEDS: POTASSIUM CHLORIDE 10 MEQ SR TABLET PO SCH ×3 (09:15→21:18)
[2019-02-20 14:00] VITALS: BP 141/81
--- NOTE | 2019-02-20 17:39 | IPNPDOC ---
Text Note Date of Service The patient was seen on 02/20/19. NOTE S: patient being seen for cellulitis of lower legs. States no puritis, states no worsening of chronic SOB/KELLEY; noCP. States rash and "heat" to bilateral legs left more than right, Ceftaroline infiltrated IV earlier today. O: Vitals as below General: pleasant, obese,NAD AAOX3 HRRR nomurmur LCTA no W/R/R Ext: bilateral edema with erythema greater than 50% of legs, hot to touch, no weeping or wounds to culture Vascular US negative for DVT A/P: Cellulitis will give ceftaroline Asthma/ restrictive lung disease/pulmonary nodules follow with pulmonary continue symbicort in place of breo and albuterol nebs Hypertension continue home meds Anxiety and depression continue Abilify Hypothyroid Synthroid Bipedal edema due to venous stasis - not CHF Had Echo in 2018 reviewed, no significant valvular abnormality, normal EF, no diastolic dysfunction, mild pulmonary hypertension 30 to 40 could be due to venous stasis Hypokalemia from diuretics - d/c lasix and replace K. VS,Fishbone, I+O VS, Fishbone, I+O Laboratory Tests 02/19/19 16:54 Red Blood Count 4.51, Mean Corpuscular Volume 83.4, Mean Corpuscular Hemoglobin 26.8 L, Mean Corpuscular Hemoglobin Concent 32.2, Red Cell Distribution Width 15.0 H, Neutrophils (%) (Auto) 87.0 H, Lymphocytes (%) (Auto) 7.2 L, Monocytes (%) (Auto) 3.6, Eosinophils (%) (Auto) 0.9, Basophils (%) (Auto) 0.4, Neutrophils # (Auto) 14.3 H, Lymphocytes # (Auto) 1.2 L, Monocytes # (Auto) 0.6, Eosinophils # (Auto) 0.1, Basophils # (Auto) 0.1 02/20/19 06:11 Red Blood Count 3.75 L, Mean Corpuscular Volume 83.2, Mean Corpuscular Hemoglobin 26.9 L, Mean Corpuscular Hemoglobin Concent 32.4, Red Cell Distribution Width 15.1 H, Neutrophils (%) (Auto) 85.5 H, Lymphocytes (%) (Auto) 8.2 L, Monocytes (%) (Auto) 4.9, Eosinophils (%) (Auto) 0.4, Basophils (%) (Auto) 0.3, Neutrophils # (Auto) 10.3 H, Lymphocytes # (Auto) 1.0 L, Monocytes # (Auto) 0.6, Eosinophils # (Auto) 0.1, Basophils # (Auto) 0.0, Calcium Level 8.6 L 02/20/19 08:12 Vital Signs Date Time Temp Pulse Resp B/P (MAP) Pulse Ox O2 Delivery O2 Flow Rate FiO2 02/20/19 08:13 77 100/54 02/20/19 06:00 98.7 18 90 02/20/19 03:38 Room Air I&O- Last 24 Hours up to 6 AM 02/20/19 06:00 Intake Total 50 ml Output Total 400 ml Balance -350 ml FARIHA BAXTER DO Feb 20, 2019 09:12
[2019-02-20] MEDS: MONTELUKAST 10 MG TAB PO SCH (21:18)
[2019-02-20 22:00] VITALS: BP 150/70
[2019-02-21] MEDS: ALBUTEROL SULFATE 2.5 MG/0.5 ML INH NEB SOLN NEB SCH ×4 (02:13→19:44)
[2019-02-21 02:15] VITALS: BP 132/62
[2019-02-21] MEDS ORDERED: FUROSEMIDE 40 MG/4 ML VIAL (J1940) IV ONE (02:30)
[2019-02-21] MEDS: LEVOTHYROXINE 75MCG TABLET (0.075MG) PO SCH (05:36)
[2019-02-21 06:00] VITALS: BP 125/60
[2019-02-21 06:36] LABS: BASO % 0.3 % (0.0-1.0); EOS # 0.1 10^3/uL (0.0-0.50); EOS % 1.3 % (0.0-3.0); HEMATOCRIT 31.5 % (36.0-47.0); HEMOGLOBIN 9.9 g/dl (12.0-15.5); LYMPH # 1.1 10^3/uL (1.5-4.5); LYMPH % 11.2 % (24.0-44.0); MEAN CORPUSCULAR HEMOGLOBIN 25.6 pg (27.0-33.0); MEAN CORPUSCULAR HGB CONC 31.4 g/dl (32.0-36.5); MEAN CORPUSCULAR VOLUME 81.4 fl (80.0-96.0); MONO # 0.6 10^3/uL (0.0-0.8); MONO % 6.3 % (0.0-5.0); NEUTROPHILS # 7.9 10^3/uL (1.8-7.7); NEUTROPHILS % 80.1 % (36.0-66.0); PLATELET COUNT, AUTOMATED 384 10^3/uL (150-450); RED BLOOD COUNT 3.87 10^6/uL (4.00-5.40); WHITE BLOOD COUNT 9.8 10^3/uL (4.0-10.0)
--- NOTE | 2019-02-21 07:05 | REP ---
Clinical: History of CHF . Comparison: 07/13/2015 . Findings: Examination is limited by portable technique and underpenetration along with poor inspiratory effort which accentuate the pulmonary vasculature and interstitium. Cephalization along with pulmonary vascular congestion and interstitial edema cannot be excluded. No obvious effusion. No focal consolidation. No pneumothorax. Cardiac silhouette is within normal limits. Skeletal structures appear intact. Impression: Elements of CHF and pulmonary vascular congestion/interstitial edema cannot be excluded. No obvious effusion or focal infiltrate. Electronically Signed by Brenton Shukla MD 02/21/2019 06:56 A
[2019-02-21 07:15] LABS: BLOOD UREA NITROGEN 12 MG/DL (7-18); CALCIUM LEVEL 8.8 MG/DL (8.8-10.2); CARBON DIOXIDE LEVEL 33 MEQ/L (21-32); CHLORIDE LEVEL 101 MEQ/L (98-107); CREATININE FOR GFR 0.77 MG/DL (0.55-1.30); GLOMERULAR FILTRATION RATE > 60.0 (>45); GLUCOSE, FASTING 89 MG/DL (70-100); POTASSIUM SERUM 3.5 MEQ/L (3.5-5.1); SODIUM LEVEL 140 MEQ/L (136-145)
[2019-02-21] MEDS: SYMBICORT 160/4.5MCG INHALER 6GM INH SCH ×2 (07:32→19:45)
[2019-02-21] MEDS ORDERED: POTASSIUM CHLORIDE 10 MEQ SR TABLET PO ONE (08:00)
--- NOTE | 2019-02-21 08:46 | REP ---
Clinical: Shortness of breath. Technique: PA and lateral. Comparison: 02/21/2019. Findings: Subtle perihilar and infrahilar air space disease cannot be excluded. No obvious effusion. No pneumothorax. Cardiac silhouette is within normal limits and stable. Impression: Clinical correlation is required. Perihilar/infrahilar air space disease cannot be excluded. No effusion. Electronically Signed by Brenton Shukla MD 02/21/2019 08:38 A
[2019-02-21] MEDS ORDERED: predniSONE 20 MG TAB PO SCH (09:00)
[2019-02-21] MEDS ORDERED: FUROSEMIDE 40 MG/4 ML VIAL (J1940) IV SCH (09:00)
[2019-02-21] MEDS: CEFTAROLINE FOSAMIL 600 MG in D5W MINI-BAG PLUS 50 ML IV SCH ×2 (09:36→20:20)
[2019-02-21] MEDS: ENOXAPARIN 40 MG/0.4 ML SYRINGE (J1650) SC SCH (09:38)
[2019-02-21] MEDS: SERTRALINE HCL 25 MG TABLET PO SCH (09:39)
[2019-02-21] MEDS: amLODIPine 10 MG TAB PO SCH (09:39)
[2019-02-21] MEDS: DOCUSATE SODIUM 100 MG CAP PO SCH ×3 (09:39→20:23)
[2019-02-21 14:00] VITALS: BP 153/68
[2019-02-21] MEDS: MONTELUKAST 10 MG TAB PO SCH (20:20)
--- NOTE | 2019-02-21 21:13 | IPNPDOC ---
Text Note Date of Service The patient was seen on 02/21/19. NOTE S: patient states no leg pain. still feels weak and needs assistance getting out of bed. States no pain where IV infiltrated yesterday. States she feels dehydrated and was given lasix last night for her leg edema. no fever. no N, no V O: Vitals as below General Pleasant NAD AAOX3 HRRR LCTA with no rales, scant wheeze, no rhonchi Ext: bilateral 1+ edema with venous stasis changes Skin: Bilateral knee/pretibial skin greatly improved with erythema along the medial popiteal folds and proximal tibia (less than 30% leg involve) bilaterally . no calor A/P: Cellulitis - improving. continue ceftaroline for 1-2 more days until erythema resolves, consider changing to oral cephalosporin. Asthma/ restrictive lung disease/pulmonary nodules follow with pulmonary continue symbicort in place of breo and albuterol nebs start medrol dose juliann for wheezing. There is NO SIGNS OF CHF and lasix d/c Hypertension - stable continue home meds Anxiety and depression- stable with Abilify Hypothyroid - stable with Synthroid Bipedal edema due to venous stasis - not CHF Had Echo in 2018 reviewed, no significant valvular abnormality, normal EF, no diastolic dysfunction, mild pulmonary hypertension 30 to 40 could be due to venous stasis Hypokalemia from diuretics - d/c lasix and replace K. Debility and weaknes - consult PT. may need rehab? VS,Fishbone, I+O VS, Fishbone, I+O Laboratory Tests 02/21/19 05:55 Red Blood Count 3.87 L, Mean Corpuscular Volume 81.4, Mean Corpuscular Hemoglobin 25.6 L, Mean Corpuscular Hemoglobin Concent 31.4 L, Red Cell Distribution Width 15.2 H, Neutrophils (%) (Auto) 80.1 H, Lymphocytes (%) (Auto) 11.2 L, Monocytes (%) (Auto) 6.3 H, Eosinophils (%) (Auto) 1.3, Basophils (%) (Auto) 0.3, Neutrophils # (Auto) 7.9 H, Lymphocytes # (Auto) 1.1 L, Monocytes # (Auto) 0.6, Eosinophils # (Auto) 0.1, Basophils # (Auto) 0.0, Calcium Level 8.8 Vital Signs Date Time Temp Pulse Resp B/P (MAP) Pulse Ox O2 Delivery O2 Flow Rate FiO2 02/21/19 14:00 97.3 96 19 153/68 (96) 97 02/21/19 06:00 1.0 02/21/19 03:15 Nasal Cannula I&O- Last 24 Hours up to 6 AM 02/21/19 06:00 Intake Total 2100 ml Output Total 120 ml Balance 1980 ml FARIHA BAXTER DO Feb 21, 2019 21:13
[2019-02-21 22:00] VITALS: BP 131/60
[2019-02-22] MEDS: ALBUTEROL SULFATE 2.5 MG/0.5 ML INH NEB SOLN NEB SCH ×2 (00:18→07:25)
[2019-02-22] MEDS: LEVOTHYROXINE 75MCG TABLET (0.075MG) PO SCH (05:32)
[2019-02-22 06:00] VITALS: BP 129/62
[2019-02-22 06:08] LABS: BASO % 0.3 % (0.0-1.0); EOS # 0.1 10^3/uL (0.0-0.50); EOS % 1.4 % (0.0-3.0); HEMATOCRIT 32.1 % (36.0-47.0); LYMPH % 10.6 % (24.0-44.0); MEAN CORPUSCULAR HEMOGLOBIN 26.2 pg (27.0-33.0); MEAN CORPUSCULAR HGB CONC 31.2 g/dl (32.0-36.5); MONO # 0.7 10^3/uL (0.0-0.8); MONO % 7.1 % (0.0-5.0); NEUTROPHILS # 7.6 10^3/uL (1.8-7.7); NEUTROPHILS % 80.2 % (36.0-66.0); PLATELET COUNT, AUTOMATED 364 10^3/uL (150-450); RED BLOOD COUNT 3.82 10^6/uL (4.00-5.40); WHITE BLOOD COUNT 9.5 10^3/uL (4.0-10.0)
[2019-02-22 06:31] LABS: BLOOD UREA NITROGEN 11 MG/DL (7-18); CALCIUM LEVEL 8.6 MG/DL (8.8-10.2); CARBON DIOXIDE LEVEL 31 MEQ/L (21-32); CHLORIDE LEVEL 102 MEQ/L (98-107); CREATININE FOR GFR 0.68 MG/DL (0.55-1.30); GLOMERULAR FILTRATION RATE > 60.0 (>45); GLUCOSE, FASTING 83 MG/DL (70-100); POTASSIUM SERUM 3.4 MEQ/L (3.5-5.1); SODIUM LEVEL 140 MEQ/L (136-145)
[2019-02-22] MEDS: SYMBICORT 160/4.5MCG INHALER 6GM INH SCH ×2 (07:25→20:00)
[2019-02-22] MEDS: CEFTAROLINE FOSAMIL 600 MG in D5W MINI-BAG PLUS 50 ML IV SCH (08:49)
[2019-02-22] MEDS: DOCUSATE SODIUM 100 MG CAP PO SCH ×2 (08:49→22:44)
[2019-02-22] MEDS: SERTRALINE HCL 25 MG TABLET PO SCH (08:49)
[2019-02-22] MEDS: ENOXAPARIN 40 MG/0.4 ML SYRINGE (J1650) SC SCH (08:50)
[2019-02-22] MEDS: amLODIPine 10 MG TAB PO SCH (08:50)
[2019-02-22] MEDS ORDERED: methylPREDNISolone 4 MG TAB PO SCH (09:00)
[2019-02-22] MEDS ORDERED: predniSONE 20 MG TAB PO SCH (09:00)
[2019-02-22] MEDS ORDERED: POTASSIUM CHLORIDE 10 MEQ SR TABLET PO ONE (10:00)
[2019-02-22] MEDS: LEVALBUTEROL 1.25 MG/0.5 ML CONCENTRATE NEB INH SCH ×3 (12:00→20:00)
[2019-02-22] MEDS: IPRATROPIUM 0.02% SOLN 0.5MG/2.5 ML NEB INH SCH ×3 (12:00→20:00)
--- NOTE | 2019-02-22 12:31 | IPNPDOC ---
Date Seen The patient was seen on 02/22/19. Progress Note Subjective: Pt says legs are improving and "not woody anymore." still desaturating to 87% w ambulation per physical therapy with KELLEY. no cough or fever. Objective: Physical examination Vitals as below General Pleasant NAD AAOX3 no conversational dyspnea Heart: RRR Lungs; CTA with no rales, scant wheeze, no rhonchi abd: soft nontender nondistended positive bowel sounds. Ext: bilateral 1+ edema with venous stasis changes erythematous nontender Skin: Bilateral knee/pretibial skin greatly improved with erythema along the medial popiteal folds and proximal tibia (less than 30% leg involve) bilaterally . no calor Laboratory data, imaging studies, microbiology : pls see below A/P:63 year old female with PMH of Asthma, restrictive lung disease, pulmonary nodules, hypertension, morbid obesity, anxiety, depression , urge incontinence presented to the ED with 1 day history of redness and rash on both of her legs left greater than right. There is an area of redness with warmth and swelling located circumferentially just below the knee on the left extending down to the ankle. Above the knee there are erythematous maculo papular scattered rash. she has a burning pain in the area, about 3/10 in intensity located maximally around the left knee with increased swelling of the legs. She has few scattered red maculopapular rash just above the right knee on the inner thighs. She was ad mitted for for cellulitis. Bilateral lower extremity Cellulitis - slowly improving - s/p iv ceftaroline since admission - check mrsa screen - demariosyn 02/22/19 Asthma/ restrictive lung disease/pulmonary nodules -on prednisone changed to bid due to persistent hypoxia with ambulation -symbicort in place of breo -on scheduled xopenex and atrovent. -check bnp to rule out right sided heart failure s/p lasix Hypertension - stable -continue home meds Anxiety and depression- stable with Abilify Hypothyroid - stable with Synthroid Bipedal edema due to venous stasis - not CHF -Had Echo in 2018 reviewed, no significant valvular abnormality, normal EF, no diastolic dysfunction, mild pulmonary hypertension 30 to 40 could be due to venous stasis Hypokalemia from diuretics - d/c lasix and replace K. Debility and weaknes - consulted PT. may need rehab? VS, I&O, 24H, Alvinoboncristal Vital Signs/I&O Vital Signs Date Time Temp Pulse Resp B/P (MAP) Pulse Ox O2 Delivery O2 Flow Rate FiO2 02/22/19 08:50 82 142/69 02/22/19 06:00 98.0 17 95 02/22/19 02:01 Room Air 02/21/19 06:00 1.0 I&O- Last 24 Hours up to 6 AM 02/22/19 06:00 Intake Total 1500 ml Output Total 100 ml Balance 1400 ml Laboratory Data 24H LABS Laboratory Tests 2 02/21/19 16:56: Bedside Glucose (Misc Panel) 177H 02/22/19 05:44: Immature Granulocyte % (Auto) 0.4, White Blood Count 9.5, Red Blood Count 3.82L, Hemoglobin 10.0L, Hematocrit 32.1L, Mean Corpuscular Volume 84.0, Mean Corpuscular Hemoglobin 26.2L, Mean Corpuscular Hemoglobin Concent 31.2L, Red Cell Distribution Width 15.3H, Platelet Count 364, Neutrophils (%) (Auto) 80.2H, Lymphocytes (%) (Auto) 10.6L, Monocytes (%) (Auto) 7.1H, Eosinophils (%) (Auto) 1.4, Basophils (%) (Auto) 0.3, Neutrophils # (Auto) 7.6, Lymphocytes # (Auto) 1.0L, Monocytes # (Auto) 0.7, Eosinophils # (Auto) 0.1, Basophils # (Auto) 0.0, Nucleated Red Blood Cells % (auto) 0.0, Anion Gap 7L, Glomerular Filtration Rate > 60.0, Blood Urea Nitrogen 11, Creatinine 0.68, Sodium Level 140, Potassium Level 3.4L, Chloride Level 102, Carbon Dioxide Level 31, Calcium Level 8.6L CBC/BMP Laboratory Tests 02/22/19 05:44 Red Blood Count 3.82 L, Mean Corpuscular Volume 84.0, Mean Corpuscular Hemoglobin 26.2 L, Mean Corpuscular Hemoglobin Concent 31.2 L, Red Cell Distribution Width 15.3 H, Neutrophils (%) (Auto) 80.2 H, Lymphocytes (%) (Auto) 10.6 L, Monocytes (%) (Auto) 7.1 H, Eosinophils (%) (Auto) 1.4, Basophils (%) (Auto) 0.3, Neutrophils # (Auto) 7.6, Lymphocytes # (Auto) 1.0 L, Monocytes # (Auto) 0.7, Eosinophils # (Auto) 0.1, Basophils # (Auto) 0.0, Calcium Level 8.6 L Microbiology Microbiology 02/19/19 Blood Culture - Preliminary, Resulted No Growth after 48 hours. All Specime... 02/19/19 Blood Culture - Preliminary, Resulted No Growth after 48 hours. All Specime... LUCY MILLAN MD Feb 22, 2019 10:41
[2019-02-22] MEDS: AMPICILLIN SOD/SULBACTAM SOD 3 GM in D5W MINI-BAG PLUS 100 ML IV SCH ×2 (13:28→18:42)
[2019-02-22 14:00] VITALS: BP 140/62
[2019-02-22 22:00] VITALS: BP 140/68
[2019-02-22] MEDS: predniSONE 20 MG TAB PO SCH (22:38)
[2019-02-22] MEDS: MONTELUKAST 10 MG TAB PO SCH (22:44)
[2019-02-23] MEDS: AMPICILLIN SOD/SULBACTAM SOD 3 GM in D5W MINI-BAG PLUS 100 ML IV SCH ×4 (02:01→18:00)
[2019-02-23] MEDS: LEVALBUTEROL 1.25 MG/0.5 ML CONCENTRATE NEB INH SCH ×7 (04:00→23:03)
[2019-02-23] MEDS: IPRATROPIUM 0.02% SOLN 0.5MG/2.5 ML NEB INH SCH ×7 (04:00→23:03)
[2019-02-23 06:00] VITALS: BP 138/74
[2019-02-23] MEDS: LEVOTHYROXINE 75MCG TABLET (0.075MG) PO SCH (06:06)
[2019-02-23 06:30] LABS: BASO % 0.1 % (0.0-1.0); HEMOGLOBIN 10.4 g/dl (12.0-15.5); LYMPH # 0.8 10^3/uL (1.5-4.5); LYMPH % 5.5 % (24.0-44.0); MEAN CORPUSCULAR HEMOGLOBIN 26.4 pg (27.0-33.0); MEAN CORPUSCULAR HGB CONC 31.5 g/dl (32.0-36.5); MEAN CORPUSCULAR VOLUME 83.8 fl (80.0-96.0); MONO # 0.1 10^3/uL (0.0-0.8); MONO % 0.7 % (0.0-5.0); NEUTROPHILS # 13.4 10^3/uL (1.8-7.7); NEUTROPHILS % 92.8 % (36.0-66.0); PLATELET COUNT, AUTOMATED 371 10^3/uL (150-450); RED BLOOD COUNT 3.94 10^6/uL (4.00-5.40); WHITE BLOOD COUNT 14.4 10^3/uL (4.0-10.0)
[2019-02-23 06:49] LABS: BLOOD UREA NITROGEN 12 MG/DL (7-18); CALCIUM LEVEL 8.9 MG/DL (8.8-10.2); CARBON DIOXIDE LEVEL 29 MEQ/L (21-32); CHLORIDE LEVEL 103 MEQ/L (98-107); CREATININE FOR GFR 0.74 MG/DL (0.55-1.30); GLOMERULAR FILTRATION RATE > 60.0 (>45); GLUCOSE, FASTING 126 MG/DL (70-100); POTASSIUM SERUM 4.2 MEQ/L (3.5-5.1); SODIUM LEVEL 138 MEQ/L (136-145)
[2019-02-23] MEDS: SYMBICORT 160/4.5MCG INHALER 6GM INH SCH ×2 (06:58→20:11)
[2019-02-23] MEDS: DOCUSATE SODIUM 100 MG CAP PO SCH ×2 (08:36→21:03)
[2019-02-23] MEDS: SERTRALINE HCL 25 MG TABLET PO SCH (08:36)
[2019-02-23] MEDS: ENOXAPARIN 40 MG/0.4 ML SYRINGE (J1650) SC SCH (08:36)
[2019-02-23] MEDS: predniSONE 20 MG TAB PO SCH ×2 (08:38→21:03)
[2019-02-23] MEDS: amLODIPine 10 MG TAB PO SCH (08:38)
--- NOTE | 2019-02-23 12:55 | IPNPDOC ---
Date Seen The patient was seen on 02/23/19. Progress Note Subjective: Per physical therapy, desaturated to 80% on room air with ambulation yesterday, unable to continue due to sob. prednisone increased to 40 mg bid with increased wbc on cbc this morning, but afebrile. LE b/l remains erythematous. no c/o PND, orthopnea, and minimal trace edema. off ceftaroline. mrsa screen ordered. on iv unasyn. Objective: Physical examination Vitals as below General Pleasant NAD AAOX3 no conversational dyspnea Heart: RRR Lungs; CTA with no rales, scant wheeze, no rhonchi abd: soft nontender nondistended positive bowel sounds. Ext: bilateral 1+ edema with venous stasis changes erythematous nontender Skin: Bilateral knee/pretibial skin greatly improved with erythema along the medial popiteal folds and proximal tibia (less than 30% leg involve) bilaterally . no calor Laboratory data, imaging studies, microbiology : pls see below A/P:63 year old female with PMH of Asthma, restrictive lung disease, pulmonary nodules, hypertension, morbid obesity, anxiety, depression , urge incontinence presented to the ED with 1 day history of redness and rash on both of her legs left greater than right. There is an area of redness with warmth and swelling located circumferentially just below the knee on the left extending down to the ankle. Above the knee there are erythematous maculo papular scattered rash. she has a burning pain in the area, about 3/10 in intensity located maximally around the left knee with increased swelling of the legs. She has few scattered red maculopapular rash just above the right knee on the inner thighs. She was admitted for for cellulitis. Hypoxia documented at 80% on room air with ambulation -check bnp -check ct chest r/o PE. Bilateral lower extremity Cellulitis - slowly improving - s/p iv ceftaroline since admission - check mrsa screen - unasyn 02/22/19 Asthma/ restrictive lung disease/pulmonary nodules -on prednisone changed to bid due to persistent hypoxia with ambulation -symbicort in place of breo -on scheduled xopenex and atrovent. -check bnp to rule out right sided heart failure s/p lasix Hypertension - stable -continue home meds Anxiety and depression- stable with Abilify Hypothyroid - stable with Synthroid Bipedal edema due to venous stasis - not CHF -Had Echo in 2018 reviewed, no significant valvular abnormality, normal EF, no diastolic dysfunction, mild pulmonary hypertension 30 to 40 could be due to venous stasis Hypokalemia from diuretics - d/c lasix and replace K. VS, I&O, 24H, Fishbone Vital Signs/I&O Vital Signs Date Time Temp Pulse Resp B/P (MAP) Pulse Ox O2 Delivery O2 Flow Rate FiO2 02/23/19 08:38 107 143/83 02/23/19 06:00 98.4 16 98 02/22/19 02:01 Room Air 02/21/19 06:00 1.0 I&O- Last 24 Hours up to 6 AM 02/23/19 06:00 Intake Total 770 ml Output Total 0 ml Balance 770 ml Laboratory Data 24H LABS Laboratory Tests 2 02/23/19 05:45: Immature Granulocyte % (Auto) 0.9, White Blood Count 14.4H, Red Blood Count 3.94L, Hemoglobin 10.4L, Hematocrit 33.0L, Mean Corpuscular Volume 83.8, Mean Corpuscular Hemoglobin 26.4L, Mean Corpuscular Hemoglobin Concent 31.5L, Red Cell Distribution Width 15.3H, Platelet Count 371, Neutrophils (%) (Auto) 92.8H, Lymphocytes (%) (Auto) 5.5L, Monocytes (%) (Auto) 0.7, Eosinophils (%) (Auto) 0.0, Basophils (%) (Auto) 0.1, Neutrophils # (Auto) 13.4H, Lymphocytes # (Auto) 0.8L, Monocytes # (Auto) 0.1, Eosinophils # (Auto) 0.0, Basophils # (Auto) 0.0, Nucleated Red Blood Cells % (auto) 0.0, Anion Gap 6L, Glomerular Filtration Rate > 60.0, Blood Urea Nitrogen 12, Creatinine 0.74, Sodium Level 138, Potassium Level 4.2#, Chloride Level 103, Carbon Dioxide Level 29, Calcium Level 8.9 CBC/BMP Laboratory Tests 02/23/19 05:45 Red Blood Count 3.94 L, Mean Corpuscular Volume 83.8, Mean Corpuscular Hemoglobin 26.4 L, Mean Corpuscular Hemoglobin Concent 31.5 L, Red Cell Distribution Width 15.3 H, Neutrophils (%) (Auto) 92.8 H, Lymphocytes (%) (Auto) 5.5 L, Monocytes (%) (Auto) 0.7, Eosinophils (%) (Auto) 0.0, Basophils (%) (Auto) 0.1, Neutrophils # (Auto) 13.4 H, Lymphocytes # (Auto) 0.8 L, Monocytes # (Auto) 0.1, Eosinophils # (Auto) 0.0, Basophils # (Auto) 0.0, Calcium Level 8.9 Microbiology Microbiology 02/19/19 Blood Culture - Preliminary, Resulted No Growth after 72 hours. All specime... 02/19/19 Blood Culture - Preliminary, Resulted No Growth after 72 hours. All specime... LUCY MILLAN MD Feb 23, 2019 12:55
[2019-02-23] MEDS ORDERED: ISOVUE-370 76% 100ML VIAL (Q9967) As Ordered ONE (13:37)
[2019-02-23 14:00] VITALS: BP 129/86
[2019-02-23] MEDS: MONTELUKAST 10 MG TAB PO SCH (21:03)
[2019-02-23 22:00] VITALS: BP 142/74
[2019-02-23] MEDS ORDERED: LEVALBUTEROL 1.25 MG/0.5 ML CONCENTRATE NEB INH PRN (22:15)
[2019-02-24] MEDS: AMPICILLIN SOD/SULBACTAM SOD 3 GM in D5W MINI-BAG PLUS 100 ML IV SCH ×4 (00:04→19:24)
[2019-02-24] MEDS: LEVALBUTEROL 1.25 MG/0.5 ML CONCENTRATE NEB INH SCH ×6 (03:09→23:25)
[2019-02-24] MEDS: IPRATROPIUM 0.02% SOLN 0.5MG/2.5 ML NEB INH SCH ×6 (03:09→23:25)
[2019-02-24 06:00] VITALS: BP 134/64
[2019-02-24] MEDS: LEVOTHYROXINE 75MCG TABLET (0.075MG) PO SCH (06:06)
[2019-02-24 06:30] LABS: BASO % 0.2 % (0.0-1.0); EOS % 0.1 % (0.0-3.0); HEMATOCRIT 31.2 % (36.0-47.0); HEMOGLOBIN 9.7 g/dl (12.0-15.5); LYMPH # 0.6 10^3/uL (1.5-4.5); LYMPH % 3.5 % (24.0-44.0); MEAN CORPUSCULAR HEMOGLOBIN 25.7 pg (27.0-33.0); MEAN CORPUSCULAR HGB CONC 31.1 g/dl (32.0-36.5); MEAN CORPUSCULAR VOLUME 82.8 fl (80.0-96.0); MONO # 0.3 10^3/uL (0.0-0.8); MONO % 1.5 % (0.0-5.0); NEUTROPHILS # 16.7 10^3/uL (1.8-7.7); NEUTROPHILS % 93.5 % (36.0-66.0); PLATELET COUNT, AUTOMATED 368 10^3/uL (150-450); RED BLOOD COUNT 3.77 10^6/uL (4.00-5.40); WHITE BLOOD COUNT 17.8 10^3/uL (4.0-10.0)
[2019-02-24 07:02] LABS: BLOOD UREA NITROGEN 18 MG/DL (7-18); CALCIUM LEVEL 8.9 MG/DL (8.8-10.2); CARBON DIOXIDE LEVEL 30 MEQ/L (21-32); CHLORIDE LEVEL 102 MEQ/L (98-107); CREATININE FOR GFR 0.76 MG/DL (0.55-1.30); GLOMERULAR FILTRATION RATE > 60.0 (>45); GLUCOSE, FASTING 128 MG/DL (70-100); NT-PRO BNP 1331 PG/ML (<125); POTASSIUM SERUM 4.1 MEQ/L (3.5-5.1); SODIUM LEVEL 137 MEQ/L (136-145)
[2019-02-24] MEDS: SYMBICORT 160/4.5MCG INHALER 6GM INH SCH ×2 (08:01→20:12)
[2019-02-24] MEDS: predniSONE 20 MG TAB PO SCH (08:19)
[2019-02-24] MEDS: DOCUSATE SODIUM 100 MG CAP PO SCH ×2 (08:19→20:54)
[2019-02-24] MEDS: ENOXAPARIN 40 MG/0.4 ML SYRINGE (J1650) SC SCH (08:19)
[2019-02-24] MEDS: amLODIPine 10 MG TAB PO SCH (08:20)
[2019-02-24] MEDS: SERTRALINE HCL 25 MG TABLET PO SCH (08:20)
[2019-02-24] MEDS ORDERED: IPRATROPIUM 0.5MG/ALBUTEROL 2.5MG INH SOL UD 3ML (DUONEB)(J7620) NEB ONE (08:45)
[2019-02-24] MEDS ORDERED: FUROSEMIDE 40 MG/4 ML VIAL (J1940) IV ONE (09:00)
[2019-02-24] MEDS ORDERED: methylPREDNISolone INJ 125 MG/2 ML VIAL (J2930) IV ONE (09:00)
[2019-02-24 09:02] LABS: CK-MB VALUE MASS 2.6 NG/ML (<3.6); CPK CREATINE PHOSPHOKINASE 157 U/L (26-192); MB/CK RELATIVE INDEX 1.66 (< OR =4); TROPONIN I < 0.02 NG/ML (< 0.10)
--- NOTE | 2019-02-24 09:29 | REP ---
Clinical: Shortness of breath. Comparison: 02/21/2019. Findings: Mediastinum and cardiac silhouette are stable and within normal limits for portable technique. Lung nguyen demonstrate diffuse chronic interstitial changes as well as calcified granuloma in the left lower lung zone which remains relatively stable compared to 2014. No acute consolidation, effusion, or pneumothorax. Skeletal structures intact. Impression: Chronic stable changes. No acute cardiopulmonary process Electronically Signed by Brenton Shukla MD 02/24/2019 09:20 A
--- NOTE | 2019-02-24 10:52 | IPNPDOC ---
Date Seen The patient was seen on 02/24/19. Progress Note Subjective: Pt c/o nonproductive cough, worsening sob, and audible wheezing at the bedside. she desaturated to 80% w ambulation on room air. no fever, or chills. no chest pain Objective: Physical examination Vitals as below General Pleasant NAD AAOX3 no conversational dyspnea Heart: RRR Lungs;diminished breath sounds. b/l expiratory wheeze, no rhonchi abd: soft nontender nondistended positive bowel sounds. Ext: bilateral 1+ edema with venous stasis changes erythematous nontender Skin: Bilateral knee/pretibial skin greatly improved with erythema along the medial popiteal folds and proximal tibia (less than 30% leg involve) bilaterally . no calor Laboratory data, imaging studies, microbiology : pls see below A/P:63 year old female with PMH of Asthma, restrictive lung disease, pulmonary nodules, hypertension, morbid obesity, anxiety, depression , urge incontinence presented to the ED with 1 day history of redness and rash on both of her legs left greater than right. There is an area of redness with warmth and swelling located circumferentially just below the knee on the left extending down to the ankle. Above the knee there are erythematous maculo papular scattered rash. she has a burning pain in the area, about 3/10 in intensity located maximally around the left knee with increased swelling of the legs. She has few scattered red maculopapular rash just above the right knee on the inner thighs. She was admitted for for cellulitis. Hypoxia documented at 80% on room air with ambulation -increased steroids due to moderate respiratory distress this morning -optimized nebulizers q2hrs -trial of lasix -check ct chest to rule out pe Bilateral lower extremity Cellulitis - slowly improving - s/p iv ceftaroline since admission - checked mrsa screen - unasyn 02/22/19 Asthma/ restrictive lung disease/pulmonary nodules -o due to persistent hypoxia with ambulation and moderate distress 02/24/19, changed to iv solumedrol -symbicort in place of breo -on scheduled xopenex and atrovent. -elevated bnp with pulmonary htn, trial of lasix Hypertension - stable -continue home meds Anxiety and depression- stable with Abilify Hypothyroid - stable with Synthroid pulmonary HTN -40mmHg on previous echo -trial of lasix Hypokalemia -resolved after supplementation -most likely from lasix disposition : until respiratory status stabilizes. VS, I&O, [facility] Vital Signs/I&O Vital Signs Date Time Temp Pulse Resp B/P (MAP) Pulse Ox O2 Delivery O2 Flow Rate FiO2 02/24/19 08:20 88 127/66 02/24/19 06:00 97.7 19 95 02/23/19 20:45 2.0 02/22/19 02:01 Room Air I&O- Last 24 Hours up to 6 AM 02/24/19 06:00 Intake Total 1020 ml Balance 1020 ml Laboratory Data 24H LABS Laboratory Tests 2 02/24/19 05:44: Immature Granulocyte % (Auto) 1.2, White Blood Count 17.8H, Red Blood Count 3.77L, Hemoglobin 9.7L, Hematocrit 31.2L, Mean Corpuscular Volume 82.8, Mean Corpuscular Hemoglobin 25.7L, Mean Corpuscular Hemoglobin Concent 31.1L, Red Cell Distribution Width 15.7H, Platelet Count 368, Neutrophils (%) (Auto) 93.5H, Lymphocytes (%) (Auto) 3.5L, Monocytes (%) (Auto) 1.5, Eosinophils (%) (Auto) 0.1, Basophils (%) (Auto) 0.2, Neutrophils # (Auto) 16.7H, Lymphocytes # (Auto) 0.6L, Monocytes # (Auto) 0.3, Eosinophils # (Auto) 0.0, Basophils # (Auto) 0.0, Nucleated Red Blood Cells % (auto) 0.0, Anion Gap 5L, Glomerular Filtration Rate > 60.0, Blood Urea Nitrogen 18, Creatinine 0.76, Sodium Level 137, Potassium Level 4.1, Chloride Level 102, Carbon Dioxide Level 30, Calcium Level 8.9, Total Creatine Kinase 157, Creatine Kinase MB 2.6, Creatine Kinase MB Relative Index 1.66, Troponin I < 0.02, SU-Kve-[id number]-Type Natriuretic Peptide 1331H CBC/BMP Laboratory Tests 02/24/19 05:44 Red Blood Count 3.77 L, Mean Corpuscular Volume 82.8, Mean Corpuscular Hemoglobin 25.7 L, Mean Corpuscular Hemoglobin Concent 31.1 L, Red Cell Distribution Width 15.7 H, Neutrophils (%) (Auto) 93.5 H, Lymphocytes (%) (Auto) 3.5 L, Monocytes (%) (Auto) 1.5, Eosinophils (%) (Auto) 0.1, Basophils (%) (Auto) 0.2, Neutrophils # (Auto) 16.7 H, Lymphocytes # (Auto) 0.6 L, Monocytes # (Auto) 0.3, Eosinophils # (Auto) 0.0, Basophils # (Auto) 0.0, Calcium Level 8.9, Total Creatine Kinase 157 Microbiology Microbiology 02/19/19 Blood Culture - Preliminary, Resulted No Growth after 72 hours. All specime... 02/19/19 Blood Culture - Preliminary, Resulted No Growth after 72 hours. All specime... 02/24/19 MRSA Screen, Received Pending LUCY MILLAN MD Feb 24, 2019 10:52
[2019-02-24] MEDS: methylPREDNISolone INJ 125 MG/2 ML VIAL (J2930) IV SCH ×2 (11:44→19:24)
[2019-02-24 14:00] VITALS: BP 126/69
[2019-02-24] MEDS ORDERED: LIDOCAINE 1% MDV 20ML VIAL As Ordered ONE (15:55)
[2019-02-24] MEDS ORDERED: ISOVUE-300 61% 50ML VIAL (Q9967) As Ordered ONE (16:48)
[2019-02-24] MEDS ORDERED: ISOVUE-370 76% 100ML VIAL (Q9967) As Ordered ONE (17:12)
--- NOTE | 2019-02-24 17:52 | REP ---
Clinical: Hypoxia. Technique: Axial contrast enhanced images from the thoracic inlet to the upper abdomen using pulmonary embolus technique including multiplanar re-formations with 100 ml Isovue 370 intravenous contrast material. Findings: Satisfactory enhancement of the pulmonary vasculature is achieved , but respiratory motion artifact limits evaluation. However, no obvious pulmonary emboli are identified. There is a small focus of alveolar infiltrate involving the apical left left lower lobe as well as minimal scattered atelectasis primarily noted at the lingula and right perihilar region. No significant pleural effusion. No pneumothorax. A 9 mm nodule at the left base abutting the fissure is unchanged compared to 2016 along with a calcified granuloma in the left lower lobe. Underlying chronic interstitial changes noted. 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 No pericardial effusion. Limited upper abdomen demonstrates normal bilateral adrenal glands. Surrounding musculoskeletal structures without focal osseous abnormality. Impression: 1. No evidence for pulmonary embolus. 2. Small focus of suspected pneumonia at the apical left lower lobe along with trace scattered atelectasis. 3. Congenital left-sided superior vena cava. 4. Stable 9 mm noncalcified nodule in the left base and calcified granuloma in the left lower lobe. Findings unchanged compared to 01/15/2016. Electronically Signed by Brenton Shukla MD 02/24/2019 05:43 P
[2019-02-24] MEDS: MONTELUKAST 10 MG TAB PO SCH (20:54)
[2019-02-24 22:00] VITALS: BP 144/70
[2019-02-25] MEDS: methylPREDNISolone INJ 125 MG/2 ML VIAL (J2930) IV SCH ×5 (00:45→23:41)
[2019-02-25] MEDS: AMPICILLIN SOD/SULBACTAM SOD 3 GM in D5W MINI-BAG PLUS 100 ML IV SCH ×4 (00:45→12:28)
[2019-02-25] MEDS: LEVALBUTEROL 1.25 MG/0.5 ML CONCENTRATE NEB INH SCH ×5 (04:56→20:00)
[2019-02-25] MEDS: IPRATROPIUM 0.02% SOLN 0.5MG/2.5 ML NEB INH SCH ×5 (04:56→20:00)
[2019-02-25] MEDS ORDERED: SODIUM CHLORIDE 0.9% INJ 10 ML SYR IV PRN (05:45)
[2019-02-25] MEDS: LEVOTHYROXINE 75MCG TABLET (0.075MG) PO SCH (05:56)
[2019-02-25 06:00] VITALS: BP 146/72
[2019-02-25] MEDS: SODIUM CHLORIDE 0.9% INJ 10 ML SYR IV SCH ×2 (06:00→16:36)
[2019-02-25 06:49] LABS: BASO % 0.1 % (0.0-1.0); HEMATOCRIT 32.3 % (36.0-47.0); HEMOGLOBIN 10.1 g/dl (12.0-15.5); LYMPH # 0.8 10^3/uL (1.5-4.5); LYMPH % 5.1 % (24.0-44.0); MEAN CORPUSCULAR HEMOGLOBIN 26.6 pg (27.0-33.0); MEAN CORPUSCULAR HGB CONC 31.3 g/dl (32.0-36.5); MONO # 0.1 10^3/uL (0.0-0.8); MONO % 0.9 % (0.0-5.0); NEUTROPHILS # 14.2 10^3/uL (1.8-7.7); NEUTROPHILS % 92.4 % (36.0-66.0); PLATELET COUNT, AUTOMATED 341 10^3/uL (150-450); WHITE BLOOD COUNT 15.4 10^3/uL (4.0-10.0)
[2019-02-25 07:16] LABS: BLOOD UREA NITROGEN 20 MG/DL (7-18); CALCIUM LEVEL 8.2 MG/DL (8.8-10.2); CARBON DIOXIDE LEVEL 31 MEQ/L (21-32); CHLORIDE LEVEL 101 MEQ/L (98-107); CREATININE FOR GFR 0.75 MG/DL (0.55-1.30); GLOMERULAR FILTRATION RATE > 60.0 (>45); GLUCOSE, FASTING 131 MG/DL (70-100); POTASSIUM SERUM 3.6 MEQ/L (3.5-5.1); SODIUM LEVEL 140 MEQ/L (136-145)
[2019-02-25] MEDS: SYMBICORT 160/4.5MCG INHALER 6GM INH SCH ×2 (08:09→20:07)
[2019-02-25] MEDS: DOCUSATE SODIUM 100 MG CAP PO SCH ×2 (09:06→21:53)
[2019-02-25] MEDS: SERTRALINE HCL 25 MG TABLET PO SCH (09:06)
[2019-02-25] MEDS: ENOXAPARIN 40 MG/0.4 ML SYRINGE (J1650) SC SCH (09:06)
[2019-02-25] MEDS: amLODIPine 10 MG TAB PO SCH (09:07)
--- NOTE | 2019-02-25 12:43 | REP ---
PICC line insertion under ultrasound guidance. The procedure was performed by LEYDI Ross, under the direct supervision of Dr. Castillo. The risks and benefits of the procedure were explained to the patient and informed consent was obtained the verbally and written. Directly prior to the start of the procedure, a formal timeout was completed in the procedure room. The right basilic vein was localized using ultrasound guidance. The skin was prepped and draped in the sterile fashion. 2 ml 1% lidocaine was used as a local anesthetic. Using ultrasound guidance the right basilic vein was cannulated and a 0.018 guidewire was inserted and advanced to the axillary vein, but would not advance any further. The decision was made to abandon the right basilic and move to the left basilic. The left basilic vein was localized using ultrasound guidance. The skin was prepped and draped in the sterile fashion. 5 ml 1% lidocaine was used as a local anesthetic. Using ultrasound guidance the left basilic vein was cannulated and a 0.018 guidewire was inserted and advanced to the proximal left subclavian vein using fluoroscopic guidance. The wire would not advance into the brachial cephalic vein , so 1.5 ml of Isovue 300 was injected, and an incidental finding of a congenital left-sided SVC was questioned. The needle was removed and a 4.5 Amharic dilator and peel-away sheath was inserted over the guidewire. A 4.5 Amharic single lumen catheter was cut to the length of 30 cm. The dilator was removed and the catheter was inserted over the guide wire with the tip ending in the distal subclavian vein. The peel-away sheath was removed and the catheter was flushed. Another 2 ml of Isovue 300 was injected to confirm the congenital anomaly of a left-sided SVC. The patient tolerated the procedure well and there were no immediate complications. 2.2 minutes of fluoroscopy time was utilized for this procedure. Some fluoroscopic images are performed with last image hold technology. These images require no additional radiation. Reviewed by LEYDI Perera 02/25/2019 09:28 A Electronically Signed by Rd Castillo MD 02/25/2019 12:34 P
[2019-02-25 14:00] VITALS: BP 140/82
--- NOTE | 2019-02-25 14:54 | IPNPDOC ---
Date Seen The patient was seen on 02/25/19. Progress Note Subjective: On 02/24/19 Pt c/o nonproductive cough, worsening sob, and audible wheezing at the bedside. she desaturated to 80% w ambulation on room air. no fever, or chills. no chest pain. CT chest: no PE. pneumonia. s/p unasyn for LE cellulitis. s/p teflaro. mrsa screen, sputum cx, urine legionella and strep pneumoniae antigen pending. on po levaquin day #1. Objective: Physical examination Vitals as below General Pleasant NAD AAOX3 no conversational dyspnea Heart: RRR Lungs;diminished breath sounds. b/l expiratory wheeze, no rhonchi abd: soft nontender nondistended positive bowel sounds. Ext: bilateral 1+ edema with venous stasis changes erythematous nontender Skin: Bilateral knee/pretibial skin greatly improved with erythema along the medial popiteal folds and proximal tibia (less than 30% leg involve) bilaterally . no calor Laboratory data, imaging studies, microbiology : pls see below A/P:63 year old female with PMH of Asthma, restrictive lung disease, pulmonary nodules, hypertension, morbid obesity, anxiety, depression , urge incontinence presented to the ED with 1 day history of redness and rash on both of her legs left greater than right. There is an area of redness with warmth and swelling located circumferentially just below the knee on the left extending down to the ankle. Above the knee there are erythematous maculo papular scattered rash. she has a burning pain in the area, about 3/10 in intensity located maximally around the left knee with increased swelling of the legs. She has few scattered red maculopapular rash just above the right knee on the inner thighs. She was admitted for for cellulitis. Acute Hypoxic respiratory failure - documented at 80% on room air with ambulation -increased steroids due to moderate respiratory distress -due to pneumonia on ct chest seen on 02/24/19 -optimized nebulizers q2hrs -trial of lasix Pneumonia -renally dosed levaquin 02/25/19 x 7days Bilateral lower extremity Cellulitis - slowly improving - s/p iv ceftaroline since admission - checked mrsa screen - downgraded to iv unasyn 02/22/19 to Asthma/ restrictive lung disease/pulmonary nodules -o due to persistent hypoxia with ambulation and moderate distress 02/24/19, changed to iv solumedrol -symbicort in place of breo -on scheduled xopenex and atrovent. -elevated bnp with pulmonary htn, trial of lasix Hypertension - stable -continue home meds Anxiety and depression- stable with Abilify Hypothyroid - stable with Synthroid pulmonary HTN -40mmHg on previous echo -trial of lasix Hypokalemia -resolved after supplementation -most likely from lasix disposition : until respiratory status stabilizes. VS, I&O, 24H, Fishbone Vital Signs/I&O Vital Signs Date Time Temp Pulse Resp B/P (MAP) Pulse Ox O2 Delivery O2 Flow Rate FiO2 02/25/19 06:00 97.8 88 14 146/72 (96) 97 02/24/19 20:54 2.0 02/22/19 02:01 Room Air I&O- Last 24 Hours up to 6 AM 02/25/19 06:00 Intake Total 820 ml Balance 820 ml Laboratory Data 24H LABS Laboratory Tests 2 02/25/19 05:50: Immature Granulocyte % (Auto) 1.5, White Blood Count 15.4H, Red Blood Count 3.80L, Hemoglobin 10.1L, Hematocrit 32.3L, Mean Corpuscular Volume 85.0, Mean Corpuscular Hemoglobin 26.6L, Mean Corpuscular Hemoglobin Concent 31.3L, Red Cell Distribution Width 15.7H, Platelet Count 341, Neutrophils (%) (Auto) 92.4H, Lymphocytes (%) (Auto) 5.1L, Monocytes (%) (Auto) 0.9, Eosinophils (%) (Auto) 0.0, Basophils (%) (Auto) 0.1, Neutrophils # (Auto) 14.2H, Lymphocytes # (Auto) 0.8L, Monocytes # (Auto) 0.1, Eosinophils # (Auto) 0.0, Basophils # (Auto) 0.0, Nucleated Red Blood Cells % (auto) 0.0, Anion Gap 8, Glomerular Filtration Rate > 60.0, Blood Urea Nitrogen 20H, Creatinine 0.75, Sodium Level 140, Potassium Level 3.6, Chloride Level 101, Carbon Dioxide Level 31, Calcium Level 8.2L CBC/BMP Laboratory Tests 02/25/19 05:50 Red Blood Count 3.80 L, Mean Corpuscular Volume 85.0, Mean Corpuscular Hemoglobin 26.6 L, Mean Corpuscular Hemoglobin Concent 31.3 L, Red Cell Distribution Width 15.7 H, Neutrophils (%) (Auto) 92.4 H, Lymphocytes (%) (Auto) 5.1 L, Monocytes (%) (Auto) 0.9, Eosinophils (%) (Auto) 0.0, Basophils (%) (Auto) 0.1, Neutrophils # (Auto) 14.2 H, Lymphocytes # (Auto) 0.8 L, Monocytes # (Auto) 0.1, Eosinophils # (Auto) 0.0, Basophils # (Auto) 0.0, Calcium Level 8.2 L Microbiology Microbiology 02/19/19 Blood Culture - Final, Complete NO GROWTH AFTER 5 DAYS 02/19/19 Blood Culture - Final, Complete NO GROWTH AFTER 5 DAYS 02/24/19 MRSA Screen, Received Pending LUCY MILLAN MD Feb 25, 2019 07:31
[2019-02-25] MEDS: LevoFLOXacin 750 MG TABLET PO SCH (16:35)
[2019-02-25] MEDS: MONTELUKAST 10 MG TAB PO SCH (21:53)
[2019-02-25 22:00] VITALS: BP 145/67
[2019-02-26] MEDS: IPRATROPIUM 0.02% SOLN 0.5MG/2.5 ML NEB INH SCH ×7 (00:01→23:29)
[2019-02-26] MEDS: LEVALBUTEROL 1.25 MG/0.5 ML CONCENTRATE NEB INH SCH ×7 (00:01→23:30)
[2019-02-26 06:00] VITALS: BP 143/73
[2019-02-26] MEDS ORDERED: LevoFLOXacin 750 MG TABLET PO SCH (06:00)
[2019-02-26] MEDS: methylPREDNISolone INJ 125 MG/2 ML VIAL (J2930) IV SCH ×3 (06:26→17:30)
[2019-02-26] MEDS: LEVOTHYROXINE 75MCG TABLET (0.075MG) PO SCH (06:26)
[2019-02-26] MEDS: SODIUM CHLORIDE 0.9% INJ 10 ML SYR IV SCH ×2 (06:26→17:30)
[2019-02-26 07:01] LABS: BLOOD UREA NITROGEN 25 MG/DL (7-18); CALCIUM LEVEL 8.4 MG/DL (8.8-10.2); CARBON DIOXIDE LEVEL 30 MEQ/L (21-32); CHLORIDE LEVEL 100 MEQ/L (98-107); CREATININE FOR GFR 0.82 MG/DL (0.55-1.30); GLOMERULAR FILTRATION RATE > 60.0 (>45); GLUCOSE, FASTING 128 MG/DL (70-100); POTASSIUM SERUM 4.2 MEQ/L (3.5-5.1); SODIUM LEVEL 138 MEQ/L (136-145)
[2019-02-26 07:02] LABS: BASO % 0.2 % (0.0-1.0); EOS % 0.2 % (0.0-3.0); HEMATOCRIT 32.9 % (36.0-47.0); HEMOGLOBIN 10.4 g/dl (12.0-15.5); LYMPH # 0.7 10^3/uL (1.5-4.5); LYMPH % 4.1 % (24.0-44.0); MEAN CORPUSCULAR HEMOGLOBIN 26.7 pg (27.0-33.0); MEAN CORPUSCULAR HGB CONC 31.6 g/dl (32.0-36.5); MEAN CORPUSCULAR VOLUME 84.4 fl (80.0-96.0); MONO # 0.3 10^3/uL (0.0-0.8); MONO % 1.9 % (0.0-5.0); NEUTROPHILS # 15.2 10^3/uL (1.8-7.7); PLATELET COUNT, AUTOMATED 333 10^3/uL (150-450); WHITE BLOOD COUNT 16.5 10^3/uL (4.0-10.0)
[2019-02-26] MEDS: SYMBICORT 160/4.5MCG INHALER 6GM INH SCH ×2 (07:14→20:13)
[2019-02-26] MEDS ORDERED: IPRATROPIUM 0.5MG/ALBUTEROL 2.5MG INH SOL UD 3ML (DUONEB)(J7620) NEB ONE (08:15)
[2019-02-26] MEDS: guaiFENesin ER 600 MG TAB PO SCH ×2 (09:14→21:28)
[2019-02-26] MEDS: SERTRALINE HCL 25 MG TABLET PO SCH (09:14)
[2019-02-26] MEDS: DOCUSATE SODIUM 100 MG CAP PO SCH ×2 (09:14→21:27)
[2019-02-26] MEDS: amLODIPine 10 MG TAB PO SCH (09:14)
[2019-02-26] MEDS: ENOXAPARIN 40 MG/0.4 ML SYRINGE (J1650) SC SCH (09:15)
--- NOTE | 2019-02-26 11:03 | IPNPDOC ---
Date Seen The patient was seen on 02/26/19. Progress Note Subjective: Pt c/o hacking nonproductive cough. sob is improved and LE improved. on levaquin for pneumonia and remained afebrile with no chills. still with wheezing, but better since iv solumedrol added. Objective: Physical examination Vitals as below General Pleasant NAD AAOX3 no conversational dyspnea Heart: RRR Lungs;diminished breath sounds. b/l expiratory wheeze, no rhonchi abd: soft nontender nondistended positive bowel sounds. Ext: bilateral 1+ edema with venous stasis changes erythematous nontender Skin: Bilateral knee/pretibial skin greatly improved with erythema along the medial popiteal folds and proximal tibia (less than 30% leg involve) bilaterally . no calor Laboratory data, imaging studies, microbiology : pls see below A/P:63 year old female with PMH of Asthma, restrictive lung disease, pulmonary nodules, hypertension, morbid obesity, anxiety, depression , urge incontinence presented to the ED with 1 day history of redness and rash on both of her legs left greater than right. There is an area of redness with warmth and swelling located circumferentially just below the knee on the left extending down to the ankle. Above the knee there are erythematous maculo papular scattered rash. she has a burning pain in the area, about 3/10 in intensity located maximally around the left knee with increased swelling of the legs. She has few scattered red maculopapular rash just above the right knee on the inner thighs. She was admitted for for cellulitis. Acute Hypoxic respiratory failure - documented at 80% on room air with ambulation -increased steroids due to moderate respiratory distress -due to pneumonia on ct chest seen on 02/24/19 -optimized nebulizers q2hrs -trial of lasix Pneumonia -renally dosed levaquin 02/25/19 x 7days Bilateral lower extremity Cellulitis - slowly improving - s/p iv ceftaroline since admission - checked mrsa screen - downgraded to iv unasyn 02/22/19 to Asthma/ restrictive lung disease/pulmonary nodules -o due to persistent hypoxia with ambulation and moderate distress 02/24/19, changed to iv solumedrol -symbicort in place of breo -on scheduled xopenex and atrovent. -elevated bnp with pulmonary htn, trial of lasix Hypertension - stable -continue home meds Anxiety and depression- stable with Abilify Hypothyroid - stable with Synthroid pulmonary HTN -40mmHg on previous echo -trial of lasix Hypokalemia -resolved after supplementation -most likely from lasix disposition : until respiratory status stabilizes. VS, I&O, 24H, Fishbone Vital Signs/I&O Vital Signs Date Time Temp Pulse Resp B/P (MAP) Pulse Ox O2 Delivery O2 Flow Rate FiO2 02/25/19 22:00 97.3 98 21 145/67 (93) 94 02/24/19 20:54 2.0 02/22/19 02:01 Room Air I&O- Last 24 Hours up to 6 AM 02/26/19 06:00 Intake Total 1840 ml Output Total 100 ml Balance 1740 ml Laboratory Data 24H LABS Laboratory Tests 2 02/26/19 02:02: 02/26/19 06:09: CBC/BMP Microbiology Microbiology 02/19/19 Blood Culture - Final, Complete NO GROWTH AFTER 5 DAYS 02/19/19 Blood Culture - Final, Complete NO GROWTH AFTER 5 DAYS 02/24/19 MRSA Screen - Final, Complete LUCY MILLAN MD Feb 26, 2019 06:33
[2019-02-26 14:00] VITALS: BP 138/63
--- NOTE | 2019-02-26 15:01 | REP ---
Clinical: Shortness of breath and cough. Technique: PA and lateral. Comparison: 02/24/2019. Findings: Mediastinum and cardiac silhouette are within normal limits. Mild interstitial edema along with bibasilar atelectasis cannot be excluded. Stable calcified granuloma in the left lower lung zone. No obvious effusion. No pneumothorax. Skeletal structures are intact. A left-sided PICC line is identified extending to the subclavian vein. Impression: 1. Cannot exclude interstitial edema or minimal basilar atelectasis. Electronically Signed by Brenton Shukla MD 02/26/2019 09:12 A
[2019-02-26] MEDS: MONTELUKAST 10 MG TAB PO SCH (21:28)
[2019-02-26 22:00] VITALS: BP 151/66
[2019-02-27] MEDS: methylPREDNISolone INJ 125 MG/2 ML VIAL (J2930) IV SCH ×4 (00:05→17:59)
[2019-02-27] MEDS: LEVALBUTEROL 1.25 MG/0.5 ML CONCENTRATE NEB INH SCH ×6 (04:00→20:12)
[2019-02-27] MEDS: IPRATROPIUM 0.02% SOLN 0.5MG/2.5 ML NEB INH SCH ×6 (04:00→20:12)
[2019-02-27 06:00] VITALS: BP 142/68
[2019-02-27] MEDS: SODIUM CHLORIDE 0.9% INJ 10 ML SYR IV SCH ×2 (07:06→18:00)
[2019-02-27] MEDS: LEVOTHYROXINE 75MCG TABLET (0.075MG) PO SCH (07:07)
[2019-02-27] MEDS: LevoFLOXacin 750 MG TABLET PO SCH (07:08)
[2019-02-27] MEDS: SYMBICORT 160/4.5MCG INHALER 6GM INH SCH ×2 (07:23→20:12)
[2019-02-27] MEDS: amLODIPine 10 MG TAB PO SCH (07:43)
[2019-02-27] MEDS: SERTRALINE HCL 25 MG TABLET PO SCH (07:43)
[2019-02-27] MEDS: DOCUSATE SODIUM 100 MG CAP PO SCH ×2 (07:43→20:33)
[2019-02-27] MEDS: FUROSEMIDE 40 MG/4 ML VIAL (J1940) IV SCH ×3 (07:43→17:59)
[2019-02-27] MEDS: guaiFENesin ER 600 MG TAB PO SCH (07:43)
[2019-02-27] MEDS: ENOXAPARIN 40 MG/0.4 ML SYRINGE (J1650) SC SCH (07:44)
--- NOTE | 2019-02-27 12:58 | IPNPDOC ---
Date Seen The patient was seen on 02/27/19. Progress Note Subjective: Pt couldnot sleep last night due to persistent cough despite levaquin for pneumonia. Her hacking cough did not improve onmucinex, and she still c/o dry nonproductive cough that is difficult to expectorate. no fever or chills. repeat CXR: pulm edema/chf. Echo: normal systolic and diastolic chf. Objective: Physical examination Vitals as below General Pleasant NAD AAOX3 no conversational dyspnea Heart: RRR Lungs;diminished breath sounds. b/l expiratory wheeze, no rhonchi abd: soft nontender nondistended positive bowel sounds. Ext: bilateral 1+ edema with venous stasis changes erythematous nontender Skin: Bilateral knee/pretibial skin greatly improved with erythema along the medial popiteal folds and proximal tibia (less than 30% leg involve) bilaterally . no calor Laboratory data, imaging studies, microbiology : pls see below A/P:63 year old female with PMH of Asthma, restrictive lung disease, pulmonary nodules, hypertension, morbid obesity, anxiety, depression , urge incontinence presented to the ED with 1 day history of redness and rash on both of her legs left greater than right. There is an area of redness with warmth and swelling located circumferentially just below the knee on the left extending down to the ankle. Above the knee there are erythematous maculo papular scattered rash. she has a burning pain in the area, about 3/10 in intensity located maximally around the left knee with increased swelling of the legs. She has few scattered red maculopapular rash just above the right knee on the inner thighs. She was admitted for for cellulitis. Acute Hypoxic respiratory failure - documented at 80% on room air with ambulation -increased steroids due to moderate respiratory distress -due to pneumonia on ct chest seen on 02/24/19 -optimized nebulizers q2hrs -trial of lasix Pneumonia -renally dosed levaquin 02/25/19 x 7days -PRN robitussin Bilateral lower extremity Cellulitis - slowly improving - s/p iv ceftaroline since admission - checked mrsa screen - downgraded to iv unasyn 02/22/19 to Asthma/ restrictive lung disease/pulmonary nodules -o due to persistent hypoxia with ambulation and moderate distress 02/24/19, changed to iv solumedrol -symbicort in place of breo -on scheduled xopenex and atrovent. -elevated bnp with pulmonary htn, trial of lasix Hypertension - stable -continue home meds Anxiety and depression- stable with Abilify Hypothyroid - stable with Synthroid pulmonary HTN -40mmHg on previous echo -trial of lasix Hypokalemia -resolved after supplementation -most likely from lasix disposition : until respiratory status stabilizes. VS, I&O, 24H, Fishbone Vital Signs/I&O Vital Signs Date Time Temp Pulse Resp B/P (MAP) Pulse Ox O2 Delivery O2 Flow Rate FiO2 02/27/19 07:43 78 142/68 02/27/19 06:00 97.3 19 95 02/24/19 20:54 2.0 02/22/19 02:01 Room Air I&O- Last 24 Hours up to 6 AM 02/27/19 06:00 Intake Total 1300 ml Output Total 100 ml Balance 1200 ml Laboratory Data Microbiology Microbiology 02/19/19 Blood Culture - Final, Complete NO GROWTH AFTER 5 DAYS 02/19/19 Blood Culture - Final, Complete NO GROWTH AFTER 5 DAYS 02/24/19 MRSA Screen - Final, Complete LUCY MILLAN MD Feb 27, 2019 12:57
[2019-02-27] MEDS ORDERED: guaiFENesin DM LIQ 10ML UD PO PRN (13:00)
[2019-02-27 14:00] VITALS: BP 161/83
[2019-02-27 19:07] LABS: CALCIUM LEVEL 8.1 MG/DL (8.8-10.2); CREATININE FOR GFR 1.42 MG/DL (0.55-1.30); GLOMERULAR FILTRATION RATE 39.8 (>45); MAGNESIUM LEVEL 2.5 MG/DL (1.8-2.4); POTASSIUM SERUM 3.1 MEQ/L (3.5-5.1)
[2019-02-27] MEDS: MONTELUKAST 10 MG TAB PO SCH (20:33)
[2019-02-27 22:00] VITALS: BP 144/76
[2019-02-28] MEDS: methylPREDNISolone INJ 125 MG/2 ML VIAL (J2930) IV SCH ×3 (00:17→17:51)
[2019-02-28] MEDS: LEVALBUTEROL 1.25 MG/0.5 ML CONCENTRATE NEB INH SCH ×7 (03:06→23:36)
[2019-02-28] MEDS: IPRATROPIUM 0.02% SOLN 0.5MG/2.5 ML NEB INH SCH ×7 (03:06→23:37)
[2019-02-28] MEDS: LEVOTHYROXINE 75MCG TABLET (0.075MG) PO SCH (05:52)
[2019-02-28] MEDS: SODIUM CHLORIDE 0.9% INJ 10 ML SYR IV SCH ×2 (05:52→17:47)
[2019-02-28 06:00] VITALS: BP 128/70
[2019-02-28 06:12] LABS: BASO % 0.1 % (0.0-1.0); EOS % 0.1 % (0.0-3.0); HEMATOCRIT 34.3 % (36.0-47.0); HEMOGLOBIN 11.1 g/dl (12.0-15.5); LYMPH # 0.7 10^3/uL (1.5-4.5); LYMPH % 4.5 % (24.0-44.0); MEAN CORPUSCULAR HEMOGLOBIN 25.8 pg (27.0-33.0); MEAN CORPUSCULAR HGB CONC 32.4 g/dl (32.0-36.5); MEAN CORPUSCULAR VOLUME 79.8 fl (80.0-96.0); MONO # 0.3 10^3/uL (0.0-0.8); MONO % 1.9 % (0.0-5.0); NEUTROPHILS # 13.4 10^3/uL (1.8-7.7); NEUTROPHILS % 90.7 % (36.0-66.0); PLATELET COUNT, AUTOMATED 343 10^3/uL (150-450); WHITE BLOOD COUNT 14.7 10^3/uL (4.0-10.0)
[2019-02-28 06:40] LABS: CALCIUM LEVEL 7.9 MG/DL (8.8-10.2); CREATININE FOR GFR 1.01 MG/DL (0.55-1.30); GLOMERULAR FILTRATION RATE 58.9 (>45); POTASSIUM SERUM 3.1 MEQ/L (3.5-5.1)
[2019-02-28] MEDS: SYMBICORT 160/4.5MCG INHALER 6GM INH SCH ×2 (08:14→19:50)
--- NOTE | 2019-02-28 08:20 | REP ---
Clinical: Shortness of breath. Technique: PA and lateral. Comparison: 02/26/2019. Findings: Subtle bilateral patchy alveolar infiltrates are again suggested but may be slightly improved when compared to prior examination. Stable calcified granuloma in the left base noted. No obvious effusion. No pneumothorax. PICC line extending to the left axillary region remains stable. Impression: Subtle patchy bilateral infiltrates again suggested and may be minimally improved. Electronically Signed by Brenton Shukla MD 02/28/2019 08:11 A
[2019-02-28] MEDS: amLODIPine 10 MG TAB PO SCH (09:13)
[2019-02-28] MEDS: DOCUSATE SODIUM 100 MG CAP PO SCH ×2 (09:13→21:50)
[2019-02-28] MEDS: ENOXAPARIN 40 MG/0.4 ML SYRINGE (J1650) SC SCH (09:13)
[2019-02-28] MEDS: SERTRALINE HCL 25 MG TABLET PO SCH (09:13)
[2019-02-28 14:00] VITALS: BP 146/86
--- NOTE | 2019-02-28 14:42 | IPNPDOC ---
Date Seen The patient was seen on 02/28/19. Progress Note Subjective: PT has continues to have a dry cough without fever or chills. sob is significantly improved despite residual wheezing. she has ambulated twice around the nurses station without hypoxia. No abd pain,chest pain,nausea, or vomiting. Objective: Physical examination Vitals as below General Pleasant NAD AAOX3 no conversational dyspnea Heart: RRR Lungs;diminished breath sounds. b/l expiratory wheeze, no rhonchi abd: soft nontender nondistended positive bowel sounds. Ext: bilateral 1+ edema with venous stasis changes erythematous nontender Skin: Bilateral knee/pretibial skin greatly improved with erythema along the medial popiteal folds and proximal tibia (less than 30% leg involve) bilaterally . no calor Laboratory data, imaging studies, microbiology : pls see below A/P:63 year old female with PMH of Asthma, restrictive lung disease, pulmonary nodules, hypertension, morbid obesity, anxiety, depression , urge incontinence presented to the ED with 1 day history of redness and rash on both of her legs left greater than right. There is an area of redness with warmth and swelling located circumferentially just below the knee on the left extending down to the ankle. Above the knee there are erythematous maculo papular scattered rash. she has a burning pain in the area, about 3/10 in intensity located maximally around the left knee with increased swelling of the legs. She has few scattered red maculopapular rash just above the right knee on the inner thighs. She was admitted for for cellulitis. Acute Hypoxic respiratory failure - documented at 80% on room air with ambulation -increased steroids due to moderate respiratory distress -due to pneumonia on ct chest seen on 02/24/19 -optimized nebulizers q2hrs -trial of lasix Pneumonia -renally dosed levaquin 02/25/19 x 7days -PRN robitussin Bilateral lower extremity Cellulitis - slowly improving - s/p iv ceftaroline since admission - checked mrsa screen - downgraded to iv unasyn 02/22/19 to Asthma/ restrictive lung disease/pulmonary nodules -o due to persistent hypoxia with ambulation and moderate distress 02/24/19, changed to iv solumedrol tapered to q12h on 02/28/19 -symbicort in place of breo -on scheduled xopenex and atrovent. -elevated bnp with pulmonary htn,s/p trial of lasix -ECHO: reviewed Hypertension - stable -continue home meds Anxiety and depression- stable with Abilify Hypothyroid - stable with Synthroid pulmonary HTN -40mmHg on previous echo -trial of lasix Hypokalemia -resolved after supplementation -most likely from lasix disposition : until respiratory status stabilizes. VS, I&O, 24H, Fishbone Vital Signs/I&O Vital Signs Date Time Temp Pulse Resp B/P (MAP) Pulse Ox O2 Delivery O2 Flow Rate FiO2 02/28/19 06:00 97.3 70 18 128/70 (89) 93 02/27/19 20:00 2.0 02/22/19 02:01 Room Air I&O- Last 24 Hours up to 6 AM 02/28/19 06:00 Intake Total 1160 ml Output Total 200 ml Balance 960 ml Laboratory Data 24H LABS Laboratory Tests 2 02/27/19 18:22: Anion Gap 9, Glomerular Filtration Rate 39.8L, Blood Urea Nitrogen 33H, Creatinine 1.42#H, Sodium Level 137, Potassium Level 3.1#L, Chloride Level 95L, Carbon Dioxide Level 33H, Calcium Level 8.1L, Magnesium Level 2.5H 02/28/19 05:26: Immature Granulocyte % (Auto) 2.7, White Blood Count 14.7H, Red Blood Count 4.30, Hemoglobin 11.1L, Hematocrit 34.3L, Mean Corpuscular Volume 79.8L, Mean Corpuscular Hemoglobin 25.8L, Mean Corpuscular Hemoglobin Concent 32.4, Red Cell Distribution Width 14.9H, Platelet Count 343, Neutrophils (%) (Auto) 90.7H, Lymphocytes (%) (Auto) 4.5L, Monocytes (%) (Auto) 1.9, Eosinophils (%) (Auto) 0.1, Basophils (%) (Auto) 0.1, Neutrophils # (Auto) 13.4H, Lymphocytes # (Auto) 0.7L, Monocytes # (Auto) 0.3, Eosinophils # (Auto) 0.0, Basophils # (Auto) 0.0, Nucleated Red Blood Cells % (auto) 0.0 CBC/BMP Laboratory Tests 02/27/19 18:22 Calcium Level 8.1 L 7/1/19 05:26 Red Blood Count 4.30, Mean Corpuscular Volume 79.8 L, Mean Corpuscular Hemoglobin 25.8 L, Mean Corpuscular Hemoglobin Concent 32.4, Red Cell Distribution Width 14.9 H, Neutrophils (%) (Auto) 90.7 H, Lymphocytes (%) (Auto) 4.5 L, Monocytes (%) (Auto) 1.9, Eosinophils (%) (Auto) 0.1, Basophils (%) (Auto) 0.1, Neutrophils # (Auto) 13.4 H, Lymphocytes # (Auto) 0.7 L, Monocytes # (Auto) 0.3, Eosinophils # (Auto) 0.0, Basophils # (Auto) 0.0 Microbiology Microbiology 02/19/19 Blood Culture - Final, Complete NO GROWTH AFTER 5 DAYS 02/19/19 Blood Culture - Final, Complete NO GROWTH AFTER 5 DAYS 02/24/19 MRSA Screen - Final, Complete LUCY MILLAN MD Feb 28, 2019 06:29
[2019-02-28] MEDS: MONTELUKAST 10 MG TAB PO SCH (21:50)
[2019-02-28 22:00] VITALS: BP 174/85
[2019-03-01] MEDS: IPRATROPIUM 0.02% SOLN 0.5MG/2.5 ML NEB INH SCH ×6 (04:00→23:46)
[2019-03-01] MEDS: LEVALBUTEROL 1.25 MG/0.5 ML CONCENTRATE NEB INH SCH ×6 (04:00→23:46)
[2019-03-01 06:00] VITALS: BP 136/62
[2019-03-01] MEDS: LEVOTHYROXINE 75MCG TABLET (0.075MG) PO SCH (06:29)
[2019-03-01] MEDS: methylPREDNISolone INJ 125 MG/2 ML VIAL (J2930) IV SCH (06:29)
[2019-03-01] MEDS: LevoFLOXacin 750 MG TABLET PO SCH (06:29)
[2019-03-01] MEDS: SODIUM CHLORIDE 0.9% INJ 10 ML SYR IV SCH ×2 (06:30→17:43)
[2019-03-01] MEDS: SYMBICORT 160/4.5MCG INHALER 6GM INH SCH ×2 (07:29→21:22)
--- NOTE | 2019-03-01 09:15 | NUR ---
Recommend pureed solids & thin liquids. Diet upgrade pending results MBSS cookie swallow, requested this date. Pt tolerated puree & thin w/o s/sx aspiration. Pt w/ cough/gag response prior to exam & during intake of soft solids. Difficult to r/o aspiration d/t baseline cough/gag & SOB. W/ hx pneumonia, recommend MBSS to r/o aspiration. Addendum: 03/01/[address] [facility] Amended: Links added.
[2019-03-01] MEDS: ENOXAPARIN 40 MG/0.4 ML SYRINGE (J1650) SC SCH (09:20)
[2019-03-01] MEDS: DOCUSATE SODIUM 100 MG CAP PO SCH ×2 (09:20→22:41)
[2019-03-01] MEDS: amLODIPine 10 MG TAB PO SCH (09:20)
[2019-03-01] MEDS: SERTRALINE HCL 25 MG TABLET PO SCH (09:20)
[2019-03-01 10:00] VITALS: O2SAT 96
[2019-03-01 11:06] LABS: HEMATOCRIT 39.8 % (36.0-47.0); HEMOGLOBIN 12.7 g/dl (12.0-15.5); MEAN CORPUSCULAR HEMOGLOBIN 26.2 pg (27.0-33.0); MEAN CORPUSCULAR HGB CONC 31.9 g/dl (32.0-36.5); MEAN CORPUSCULAR VOLUME 82.2 fl (80.0-96.0); PLATELET COUNT, AUTOMATED 366 10^3/uL (150-450); RED BLOOD COUNT 4.84 10^6/uL (4.00-5.40); WHITE BLOOD COUNT 20.4 10^3/uL (4.0-10.0)
[2019-03-01 11:25] LABS: BLOOD UREA NITROGEN 25 MG/DL (7-18); CALCIUM LEVEL 8.3 MG/DL (8.8-10.2); CARBON DIOXIDE LEVEL 31 MEQ/L (21-32); CHLORIDE LEVEL 99 MEQ/L (98-107); CREATININE FOR GFR 0.85 MG/DL (0.55-1.30); GLOMERULAR FILTRATION RATE > 60.0 (>45); GLUCOSE, FASTING 97 MG/DL (70-100); POTASSIUM SERUM 3.6 MEQ/L (3.5-5.1); SODIUM LEVEL 138 MEQ/L (136-145)
[2019-03-01] MEDS ORDERED: VARIBAR PUDDING 40% w/v 230ML TUBE As Ordered ONE (13:46)
[2019-03-01] MEDS ORDERED: VARIBAR NECTAR 40% w/v 240ML SUSP BTL As Ordered ONE (13:46)
[2019-03-01] MEDS ORDERED: BARIUM SULFATE 700 MG TABLET (E-Z-DISK) As Ordered ONE (13:47)
[2019-03-01] MEDS ORDERED: E-Z-PAQUE 96% w/w SUSP 176GM BTL As Ordered ONE (13:47)
--- NOTE | 2019-03-01 14:44 | NUR ---
Swallow is adequate. No evidence oropharyngeal phase dysphagia. No aspiration or penetration observed. Recommend regular solids, thin liquids, upright during meals. Dysphagia tx f/u x1 for tolerance of diet upgrade. Addendum: 03/01/19 at 1444 by [facility] Amended: Links added.
[2019-03-01 15:12] VITALS: BP 151/68
--- NOTE | 2019-03-01 16:43 | REP ---
Examination Requested: Cookie Swallow Reason For Exam: Evaluate for aspiration The procedure was performed by Julissa Purvis, [facility], under the direct supervision of Dr. Shukla. The procedure was performed with Adelaide Rolon from speech pathology present. 5 ml aliquots of thin, pudding, mixed fruit, soft food, hard food, and pill consistency barium was administered. No penetration or aspiration was observed throughout the course of the exam. The detailed report of this examination will be provided by speech pathology. 1.2 minutes of fluoroscopy time was utilized for this procedure. Reviewed by LEYDI Perera 03/01/2019 02:47 P Electronically Signed by Brenton Shukla MD 03/01/2019 04:34 P
--- NOTE | 2019-03-01 21:37 | IPNPDOC ---
Date Seen The patient was seen on 03/01/19. Progress Note SUBJECTIVE: Patient was reporting feeling fine but very emotional as today is her late mother's birthday who had passed. Appeared to be SOB after crying with facial flushing. OBJECTIVE PHYSICAL EXAMINATION: VITAL SIGNS: Please see below. General: facial flushing, dyspnic Eyes: Normal sclera, EOMI, AMA HENT: Atraumatic, neck supple, moist mucous membranes Cardiovascular: Normal rate, normal rhythm. No murmurs appreciated. Pulmonary: Clear to auscultation b/l, no wheezing GI: Soft, nontender, nondistended Skin: Warm and dry Neuro: CN grossly intact. No focal deficits. Strengths equal b/l. Psych: oriented x 3 LABORATORY DATA, IMAGING STUDIES, MICROBIOLOGY: Please see below. ASSESSMENT AND PLAN: 1. Asthma Exacerbation with acute hypoxic respiratory failure - Sat 80% on RA on presentation then subsequently worsened requiring initiation of IV solumedrol. - Improved on steroids and nebs treatment. To taper steroids. - Oxygenation improving, wean off O2 as tolerated. - c/w nebs. 2. PNA - renally dose Levaquin for 7 days. 02/25-03/04. 3. b/l LE cellulitis - s/p IV ceftaroline and Unasyn. 4. HTN - resume home meds 5. Hypothyroidism - c/w synthroid 6. pulm HTN - trial of lasix. DVT ppx: Lovenox VS, I&O, 24H, Fishbone Vital Signs/I&O Vital Signs Date Time Temp Pulse Resp B/P (MAP) Pulse Ox O2 Delivery O2 Flow Rate FiO2 03/01/19 15:12 97.3 91 20 151/68 (95) 96 03/01/19 10:00 Room Air 02/27/19 20:00 2.0 I&O- Last 24 Hours up to 6 AM 03/01/19 06:00 Intake Total 900 ml Output Total 1150 ml Balance -250 ml Laboratory Data 24H LABS Laboratory Tests 2 03/01/19 10:51: Nucleated Red Blood Cells % (auto) 0.1H, Anion Gap 8, Glomerular Filtration Rate > 60.0, Blood Urea Nitrogen 25H, Creatinine 0.85, Sodium Level 138, Potassium Level 3.6, Chloride Level 99, Carbon Dioxide Level 31, Calcium Level 8.3L CBC/BMP Laboratory Tests 03/01/19 10:51 Red Blood Count 4.84, Mean Corpuscular Volume 82.2, Mean Corpuscular Hemoglobin 26.2 L, Mean Corpuscular Hemoglobin Concent 31.9 L, Red Cell Distribution Width 15.1 H, Calcium Level 8.3 L Microbiology Microbiology 02/19/19 Blood Culture - Final, Complete NO GROWTH AFTER 5 DAYS 02/19/19 Blood Culture - Final, Complete NO GROWTH AFTER 5 DAYS 02/24/19 MRSA Screen - Final, Complete LILIA BECKHAM MD Mar 01, 2019 21:37
[2019-03-01 22:00] VITALS: BP 145/75
[2019-03-01] MEDS: MONTELUKAST 10 MG TAB PO SCH (22:41)
[2019-03-02 00:09] LABS: BODY FLUID CULTURE Not Indicated (.); LEGIONELLA ANTIGEN URINE Negative (Negative); ORGANISM ID Not indicated. (.); SPECIMEN SOURCE Urine (.); URINE STREP PNEUMONIAE ANTIGEN Negative (Negative)
[2019-03-02] MEDS: LEVALBUTEROL 1.25 MG/0.5 ML CONCENTRATE NEB INH SCH ×5 (04:00→20:00)
[2019-03-02] MEDS: IPRATROPIUM 0.02% SOLN 0.5MG/2.5 ML NEB INH SCH ×5 (04:00→20:00)
[2019-03-02] MEDS: SODIUM CHLORIDE 0.9% INJ 10 ML SYR IV SCH ×2 (05:44→18:25)
[2019-03-02] MEDS: LEVOTHYROXINE 75MCG TABLET (0.075MG) PO SCH (05:44)
[2019-03-02 06:00] VITALS: BP 150/71
[2019-03-02 06:43] LABS: HEMATOCRIT 35.9 % (36.0-47.0); HEMOGLOBIN 11.5 g/dl (12.0-15.5); MEAN CORPUSCULAR HEMOGLOBIN 26.5 pg (27.0-33.0); MEAN CORPUSCULAR VOLUME 82.7 fl (80.0-96.0); PLATELET COUNT, AUTOMATED 285 10^3/uL (150-450); RED BLOOD COUNT 4.34 10^6/uL (4.00-5.40)
[2019-03-02 07:25] LABS: BLOOD UREA NITROGEN 23 MG/DL (7-18); CALCIUM LEVEL 7.7 MG/DL (8.8-10.2); CARBON DIOXIDE LEVEL 31 MEQ/L (21-32); CHLORIDE LEVEL 101 MEQ/L (98-107); CREATININE FOR GFR 0.74 MG/DL (0.55-1.30); GLOMERULAR FILTRATION RATE > 60.0 (>45); GLUCOSE, FASTING 69 MG/DL (70-100); POTASSIUM SERUM 2.9 MEQ/L (3.5-5.1); SODIUM LEVEL 140 MEQ/L (136-145)
[2019-03-02] MEDS: SYMBICORT 160/4.5MCG INHALER 6GM INH SCH ×2 (07:30→20:33)
[2019-03-02] MEDS ORDERED: POTASSIUM CHLORIDE 10 MEQ SR TABLET PO ONE ×2 (07:45→10:00)
[2019-03-02] MEDS: DOCUSATE SODIUM 100 MG CAP PO SCH ×2 (08:44→21:00)
[2019-03-02] MEDS: SERTRALINE HCL 25 MG TABLET PO SCH (08:44)
[2019-03-02] MEDS: ENOXAPARIN 40 MG/0.4 ML SYRINGE (J1650) SC SCH (08:45)
[2019-03-02] MEDS: amLODIPine 10 MG TAB PO SCH (08:46)
[2019-03-02] MEDS ORDERED: methylPREDNISolone INJ 40 MG/1 ML VIAL (J2920) IV SCH (09:00)
[2019-03-02 14:00] VITALS: BP 151/81
--- NOTE | 2019-03-02 20:05 | IPNPDOC ---
Date Seen The patient was seen on 03/02/19. Progress Note SUBJECTIVE: Patient was up eating breakfast today. Denies any significant SOB, appeared much more comfortable today. Transitioned to PO prednisone from solumedrol. OBJECTIVE PHYSICAL EXAMINATION: VITAL SIGNS: Please see below. General: No acute distress. Eyes: Normal sclera, EOMI, AMA HENT: Atraumatic, neck supple, moist mucous membranes Cardiovascular: Normal rate, normal rhythm. No murmurs appreciated. Pulmonary: Clear to auscultation b/l, no wheezing GI: Soft, nontender, nondistended Skin: Warm and dry Neuro: CN grossly intact. No focal deficits. Strengths equal b/l. Psych: oriented x 3 LABORATORY DATA, IMAGING STUDIES, MICROBIOLOGY: Please see below. ASSESSMENT AND PLAN: 1. Asthma Exacerbation with acute hypoxic respiratory failure - Sat 80% on RA on presentation then subsequently worsened requiring initiation of IV solumedrol. - Improved on steroids and nebs treatment. To taper steroids. - Oxygenation improving, wean off O2 as tolerated. - c/w nebs. 2. PNA - renally dose Levaquin for 7 days. 02/25-03/04. 3. b/l LE cellulitis - s/p IV ceftaroline and Unasyn. 4. HTN - resume home meds 5. Hypothyroidism - c/w synthroid 6. pulm HTN - trial of lasix. DVT ppx: Lovenox VS, I&O, 24H, Fishbone Vital Signs/I&O Vital Signs Date Time Temp Pulse Resp B/P (MAP) Pulse Ox O2 Delivery O2 Flow Rate FiO2 03/02/19 14:00 97.7 96 16 151/81 (104) 96 03/01/19 10:00 Room Air 02/27/19 20:00 2.0 I&O- Last 24 Hours up to 6 AM 03/02/19 06:00 Intake Total 1320 ml Balance 1320 ml Laboratory Data 24H LABS Laboratory Tests 2 03/02/19 06:26: Nucleated Red Blood Cells % (auto) 0.0, Anion Gap 8, Glomerular Filtration Rate > 60.0, Blood Urea Nitrogen 23H, Creatinine 0.74, Sodium Level 140, Potassium Level 2.9*L, Chloride Level 101, Carbon Dioxide Level 31, Calcium Level 7.7L CBC/BMP Laboratory Tests 03/02/19 06:26 Red Blood Count 4.34, Mean Corpuscular Volume 82.7, Mean Corpuscular Hemoglobin 26.5 L, Mean Corpuscular Hemoglobin Concent 32.0, Red Cell Distribution Width 15.1 H, Calcium Level 7.7 L Microbiology Microbiology 02/24/19 MRSA Screen - Final, Complete LILIA BECKHAM MD Mar 02, 2019 20:05
[2019-03-02] MEDS: MONTELUKAST 10 MG TAB PO SCH (21:00)
[2019-03-02 22:00] VITALS: BP 140/68
[2019-03-03] MEDS: IPRATROPIUM 0.02% SOLN 0.5MG/2.5 ML NEB INH SCH ×3 (04:00→08:00)
[2019-03-03] MEDS: LEVALBUTEROL 1.25 MG/0.5 ML CONCENTRATE NEB INH SCH ×3 (04:00→08:00)
[2019-03-03] MEDS: LevoFLOXacin 750 MG TABLET PO SCH (05:28)
[2019-03-03] MEDS: LEVOTHYROXINE 75MCG TABLET (0.075MG) PO SCH (05:28)
[2019-03-03] MEDS: SODIUM CHLORIDE 0.9% INJ 10 ML SYR IV SCH (05:29)
[2019-03-03 06:00] VITALS: BP 147/67
[2019-03-03 07:11] LABS: HEMATOCRIT 36.5 % (36.0-47.0); HEMOGLOBIN 11.7 g/dl (12.0-15.5); MEAN CORPUSCULAR HEMOGLOBIN 26.7 pg (27.0-33.0); MEAN CORPUSCULAR HGB CONC 32.1 g/dl (32.0-36.5); MEAN CORPUSCULAR VOLUME 83.3 fl (80.0-96.0); PLATELET COUNT, AUTOMATED 206 10^3/uL (150-450); RED BLOOD COUNT 4.38 10^6/uL (4.00-5.40); WHITE BLOOD COUNT 16.1 10^3/uL (4.0-10.0)
[2019-03-03 08:10] LABS: BLOOD UREA NITROGEN 19 MG/DL (7-18); CALCIUM LEVEL 8.3 MG/DL (8.8-10.2); CARBON DIOXIDE LEVEL 29 MEQ/L (21-32); CHLORIDE LEVEL 106 MEQ/L (98-107); CREATININE FOR GFR 0.84 MG/DL (0.55-1.30); GLOMERULAR FILTRATION RATE > 60.0 (>45); GLUCOSE, FASTING 58 MG/DL (70-100); POTASSIUM SERUM 3.9 MEQ/L (3.5-5.1); SODIUM LEVEL 142 MEQ/L (136-145)
[2019-03-03] MEDS: SYMBICORT 160/4.5MCG INHALER 6GM INH SCH (08:35)
[2019-03-03] MEDS ORDERED: predniSONE 20 MG TAB PO SCH (09:00)
[2019-03-03] MEDS: DOCUSATE SODIUM 100 MG CAP PO SCH (09:26)
[2019-03-03] MEDS: SERTRALINE HCL 25 MG TABLET PO SCH (09:26)
[2019-03-03] MEDS: ENOXAPARIN 40 MG/0.4 ML SYRINGE (J1650) SC SCH (09:27)
[2019-03-03 09:28] VITALS: BP 153/79
[2019-03-03] MEDS: amLODIPine 10 MG TAB PO SCH (09:28)
[2019-03-03] MEDS ORDERED: PRED20TA PO (11:45)
--- NOTE | 2019-03-03 12:17 | DS.PDOC ---
Discharge Summary General Date of Admission Feb 19, 2019 at 21:21 Date of Discharge 03/03/19 Discharge Summary PROCEDURES PERFORMED DURING STAY: [None]. ADMITTING DIAGNOSES: 1. LE cellulitis 2. Asthma/restrictive lung disease/pulmonary nodules 3. HTN 4. Anxiety and depression 5. Hypothyroidism DISCHARGE DIAGNOSES: 1. LE cellulitis 2. Asthma exacerbation 3. HTN 4. Anxiety and depression 5. Hypothyroidism 6. Restrictive lung disease/pulmonary nodules COMPLICATIONS/CHIEF COMPLAINT: Cellulitis Of L Lower Extremity. HISTORY OF PRESENT ILLNESS: "63 year old female with PMH of Asthma, restrictive lung disease, pulmonary nodules, hypertension, morbid obesity, anxiety, depression , urge incontinence presented to the ED with 1 day history of redness and rash on both of her legs left greater than right. There is an area of redness with warmth and swelling located circumferentially just below the knee on the left extending down to the ankle. Above the knee there are erythematous maculo papular scattered rash. she has a burning pain in the area, about 3/10 in intensity located maximally around the left knee with increased swelling of the legs. She has few scattered red maculopapular rash just above the right knee on the inner thighs. She was admitted for for cellulitis." HOSPITAL COURSE: Patient was treated for cellulitis with significant improvement, also noted to have PNA and Asthma exacerbation and was receiving antibiotics and steroids. Symptoms reportedly resolves and patient reports feeling well wanting to go home. She completes her levaquin regimen today, steroids had been tapered down to PO prednisone. Will give 2 more days at 20 mg daily and to follow up with PMD within 1 week post discharge. DISCHARGE MEDICATIONS: Please see below. ALLERGIES: Please see below. PHYSICAL EXAMINATION ON DISCHARGE: VITAL SIGNS: Please see below. General: No acute distress. Eyes: Normal sclera, EOMI, AMA HENT: Atraumatic, neck supple, moist mucous membranes Cardiovascular: Normal rate, normal rhythm. No murmurs appreciated. Pulmonary: Clear to auscultation b/l, no wheezing GI: Soft, nontender, nondistended Skin: Warm and dry Neuro: CN grossly intact. No focal deficits. Strengths equal b/l. Psych: oriented x 3 LABORATORY DATA: Please see below. IMAGING: CT Angio- Impression: 1. No evidence for pulmonary embolus. 2. Small focus of suspected pneumonia at the apical left lower lobe along with trace scattered atelectasis. 3. Congenital left-sided superior vena cava. 4. Stable 9 mm noncalcified nodule in the left base and calcified granuloma in the left lower lobe. Findings unchanged compared to 01/15/2016. CXR(02/24)- Findings: Mediastinum and cardiac silhouette are within normal limits. Mild interstitial edema along with bibasilar atelectasis cannot be excluded. Stable calcified granuloma in the left lower lung zone. No obvious effusion. No pneumothorax. Skeletal structures are intact. A left-sided PICC line is identified extending to the subclavian vein. Impression: 1. Cannot exclude interstitial edema or minimal basilar atelectasis. ACTIVITY: [As tolerated]. DIET: Regular diet DISCHARGE PLAN: f/u PMD within 1 week Complete course of prednisone DISPOSITION: Home with home health referral. DISCHARGE INSTRUCTIONS: f/u PMD within 1 week Complete course of prednisone ITEMS TO FOLLOWUP ON ON OUTPATIENT: 1. None DISCHARGE CONDITION: [Stable]. TIME SPENT ON DISCHARGE: 33 minutes. Vital Signs/I&Os Vital Signs Date Time Temp Pulse Resp B/P (MAP) Pulse Ox O2 Delivery O2 Flow Rate FiO2 03/03/19 09:28 96 153/79 03/03/19 06:00 98.9 15 94 03/01/19 10:00 Room Air 02/27/19 20:00 2.0 I&O- Last 24 Hours up to 6 AM 03/03/19 06:00 Intake Total 600 ml Balance 600 ml Laboratory Data Labs 24H Laboratory Tests 2 03/03/19 06:56: Nucleated Red Blood Cells % (auto) 0.0, Anion Gap 7L, Glomerular Filtration Rate > 60.0, Blood Urea Nitrogen 19H, Creatinine 0.84, Sodium Level 142, Potassium Level 3.9#, Chloride Level 106, Carbon Dioxide Level 29, Calcium Level 8.3L CBC/BMP Laboratory Tests 03/03/19 06:56 Red Blood Count 4.38, Mean Corpuscular Volume 83.3, Mean Corpuscular Hemoglobin 26.7 L, Mean Corpuscular Hemoglobin Concent 32.1, Red Cell Distribution Width 15.4 H, Calcium Level 8.3 L Microbiology Microbiology 02/24/19 MRSA Screen - Final, Complete Discharge Medications Scheduled Amlodipine Besylate (Norvasc) 10 Mg Tablet, 10 MG PO DAILY, (Reported) Aripiprazole (Aripiprazole) 10 Mg Tablet, 5 MG PO QHS, (Reported) Fluticasone/Vilanterol (Breo Ellipta 200-25 Mcg INH) 1 Inh Inh, 1 PUFF INH DAILY, (Reported) Hydrochlorothiazide (Hydrochlorothiazide) 25 Mg Tablet, 25 MG PO DAILY, (Reported) Levothyroxine Sodium (Synthroid) 75 Mcg Tablet, 75 MCG PO DAILY, (Reported) Montelukast Sodium (Montelukast Sodium) 10 Mg Tablet, 10 MG PO QHS, (Reported) Potassium Chloride (Potassium Chloride) 10 Meq Capsule.er, 10 MEQ PO DAILY, (Reported) Prednisone (Prednisone) 20 Mg Tablet, 20 MG PO DAILY Sertraline HCl (Sertraline HCl) 25 Mg Tablet, 25 MG PO DAILY, (Reported) Allergies Coded Allergies: No Known Allergies (Unverified , 07/30/17) LILIA BECKHAM MD Mar 03, 2019 12:17
== END 2019-03-03 13:11 | disposition home health service (06) | DRG 383 ==
LOC: M ED 16:24 → M ED INP 21:21 → M MSPAV 22:12
PROVIDERS: ADMIT Internal Medicine Nephrology; ATTEND Student in an Organized Health Care Education/Training Program
PROC: 02HV33Z Insertion of Infusion Device into Superior Vena Cava, Percutaneous Approach (ICD-10-PCS; principal; 2019-02-24)
DX: L03.116 Cellulitis of left lower limb (principal); J96.01 Acute respiratory failure with hypoxia; Z68.43 Body mass index [BMI] 50.0-59.9, adult; J18.9 Pneumonia, unspecified organism; I27.20 Pulmonary hypertension, unspecified; J45.901 Unspecified asthma with (acute) exacerbation; E66.01 Morbid (severe) obesity due to excess calories; I10 Essential (primary) hypertension; F41.9 Anxiety disorder, unspecified; F32.9 Major depressive disorder, single episode, unspecified; E03.9 Hypothyroidism, unspecified; R91.8 Other nonspecific abnormal finding of lung field; Z79.899 Other long term (current) drug therapy; I34.0 Nonrheumatic mitral (valve) insufficiency; E78.00 Pure hypercholesterolemia, unspecified; Z95.2 Presence of prosthetic heart valve; E87.6 Hypokalemia; L03.115 Cellulitis of right lower limb

== ENCOUNTER → 2019-03-30 | Outpatient (REF) | payer OTHER, MEDICAID ==
[~2019-03-30] MED LIST changes: +AMLO10TA PO; +HYDR25TAB PO; +MONT10TA2 PO; +POTA10CA32 PO; +PRED20TA PO; +SERT25TA88 PO; +SYNT75TA PO
[2019-03-30 11:59] LABS: BASO % 0.3 % (0.0-1.0); EOS # 0.1 10^3/uL (0.0-0.50); EOS % 0.6 % (0.0-3.0); HEMATOCRIT 36.9 % (36.0-47.0); HEMOGLOBIN 11.8 g/dl (12.0-15.5); LYMPH # 1.7 10^3/uL (1.5-4.5); LYMPH % 13.3 % (24.0-44.0); MEAN CORPUSCULAR HEMOGLOBIN 25.7 pg (27.0-33.0); MEAN CORPUSCULAR VOLUME 80.4 fl (80.0-96.0); MONO # 0.7 10^3/uL (0.0-0.8); MONO % 5.1 % (0.0-5.0); NEUTROPHILS # 10.1 10^3/uL (1.8-7.7); NEUTROPHILS % 79.5 % (36.0-66.0); PLATELET COUNT, AUTOMATED 530 10^3/uL (150-450); RED BLOOD COUNT 4.59 10^6/uL (4.00-5.40); WHITE BLOOD COUNT 12.7 10^3/uL (4.0-10.0)
[2019-03-30 12:36] LABS: ALBUMIN 3.3 GM/DL (3.2-5.2); ALT/SGPT 29 U/L (12-78); BILIRUBIN,TOTAL 1.1 MG/DL (0.2-1.0); BLOOD UREA NITROGEN 8 MG/DL (7-18); CALCIUM LEVEL 9.7 MG/DL (8.8-10.2); CARBON DIOXIDE LEVEL 32 MEQ/L (21-32); CHLORIDE LEVEL 99 MEQ/L (98-107); CREATININE FOR GFR 0.73 MG/DL (0.55-1.30); GLOMERULAR FILTRATION RATE > 60.0 (>45); GLUCOSE, FASTING 124 MG/DL (70-100); POTASSIUM SERUM 3.6 MEQ/L (3.5-5.1); SODIUM LEVEL 138 MEQ/L (136-145); TOTAL PROTEIN 6.7 GM/DL (6.4-8.2)
== END ==
LOC: M LAB REF 11:14
PROVIDERS: ATTEND Nurse Practitioner Family
DX: E87.6 Hypokalemia (principal); I10 Essential (primary) hypertension

== ENCOUNTER 2019-04-22 17:28 | Inpatient (IN) | payer MEDICAID, OTHER ==
[~2019-04-22] VITALS: Ht 142.2 cm; Wt 93.4 kg
[2019-04-22] MEDS ORDERED: IPRATROPIUM 0.5MG/ALBUTEROL 2.5MG INH SOL UD 3ML (DUONEB)(J7620) As Ordered ONE (17:45)
[2019-04-22] MEDS ORDERED: NITROGLYCERIN 2% OINT 1 GM *U/D* PKT TOP ONE (18:00)
[2019-04-22 18:15] LABS: BASO # 0.1 10^3/uL (0.0-0.2); BASO % 0.4 % (0.0-1.0); EOS # 0.1 10^3/uL (0.0-0.50); EOS % 0.6 % (0.0-3.0); HEMATOCRIT 35.2 % (36.0-47.0); HEMOGLOBIN 11.2 g/dl (12.0-15.5); LYMPH # 1.4 10^3/uL (1.5-4.5); LYMPH % 7.3 % (24.0-44.0); MEAN CORPUSCULAR HEMOGLOBIN 26.4 pg (27.0-33.0); MEAN CORPUSCULAR HGB CONC 31.8 g/dl (32.0-36.5); MONO # 0.8 10^3/uL (0.0-0.8); MONO % 4.2 % (0.0-5.0); NEUTROPHILS # 16.5 10^3/uL (1.8-7.7); PLATELET COUNT, AUTOMATED 373 10^3/uL (150-450); RED BLOOD COUNT 4.24 10^6/uL (4.00-5.40); WHITE BLOOD COUNT 18.9 10^3/uL (4.0-10.0)
[2019-04-22] MEDS ORDERED: IPRATROPIUM 0.5MG/ALBUTEROL 2.5MG INH SOL UD 3ML (DUONEB)(J7620) NEB ONE (18:15)
[2019-04-22] MEDS ORDERED: ALBUTEROL SULFATE 2.5 MG/0.5 ML INH NEB SOLN NEB ONE (18:15)
[2019-04-22] MEDS ORDERED: PROAAER10 INH ×2 (18:37→20:28)
[2019-04-22] MEDS ORDERED: dexameTHASONE 20 MG/5 ML VIAL (J1100) IV ONE (18:45)
[2019-04-22 18:47] LABS: INR 1.03; PROTHROMBIN TIME 13.2 SECONDS (11.8-14.0)
[2019-04-22 19:01] LABS: ALBUMIN 3.4 GM/DL (3.2-5.2); ALT/SGPT 25 U/L (12-78); BILIRUBIN,DIRECT 0.1 MG/DL (0.0-0.2); BILIRUBIN,TOTAL 1.2 MG/DL (0.2-1.0); BLOOD UREA NITROGEN 8 MG/DL (7-18); CALCIUM LEVEL 9.3 MG/DL (8.8-10.2); CARBON DIOXIDE LEVEL 29 MEQ/L (21-32); CHLORIDE LEVEL 95 MEQ/L (98-107); CK-MB VALUE MASS 1.7 NG/ML (<3.6); CPK CREATINE PHOSPHOKINASE 229 U/L (26-192); CREATININE FOR GFR 0.96 MG/DL (0.55-1.30); GLOMERULAR FILTRATION RATE > 60.0 (>45); GLUCOSE, FASTING 129 MG/DL (70-100); MB/CK RELATIVE INDEX 0.74 (< OR =4); NT-PRO BNP 400 PG/ML (<125); POTASSIUM SERUM 4.8 MEQ/L (3.5-5.1); SODIUM LEVEL 134 MEQ/L (136-145); THYROXINE (T4) 16.7 UG/DL (4.5-12.0); TOTAL PROTEIN 7.2 GM/DL (6.4-8.2); TROPONIN I < 0.02 NG/ML (< 0.10)
--- NOTE | 2019-04-22 19:39 | REP ---
Portable chest, 44 p.m., single AP view with the patient upright: Comparisons are 02/21 2019 and 02/28/2019. There is chronic interstitial coarsening compatible with vascular engorgement, unchanged. There is a 14 ml rounded density inferiorly in the left lung. On a chest CT dated 02/24/2019 this is a left lower lobe calcified granuloma. There are no focal infiltrates or pleural effusions. The cardiomediastinal silhouette and skeletal structures are unremarkable. Impression: Chronic interstitial coarsening compatible with vascular engorgement. Otherwise, negative. Electronically Signed by Constantin Perry MD 04/22/2019 07:30 P
[2019-04-22] MEDS ORDERED: FUROSEMIDE 40 MG/4 ML VIAL (J1940) IV SCH (21:00)
[2019-04-22] MEDS ORDERED: ACETAMINOPHEN TAB 650MG DOSE (2X325MG) PO PRN (22:15)
[2019-04-22] MEDS ORDERED: FUROSEMIDE 40 MG/4 ML VIAL (J1940) IV STA (22:43)
[2019-04-22] MEDS ORDERED: IPRATROPIUM 0.5MG/ALBUTEROL 2.5MG INH SOL UD 3ML (DUONEB)(J7620) NEB PRN (22:45)
--- NOTE | 2019-04-22 23:30 | HPEPDOC ---
[facility] Medical History & Physical Date of Admission Apr 22, 2019 Date of Service: Apr 22, 2019 History and Physical CHIEF COMPLAINT: [LOWER EXTREMITY SWELLING ] HISTORY OF PRESENT ILLNESS: [This is a 63 yo f with hx of asthma who was recently dc from here and was treated for pna and cellulitis of the lower extremities, who presented to the ed for lower extremity swelling for the past 2 days. Patient also has been having sob with some wheezing and cough without sputum production. Patient denied fever , chills, chest pain, aqbd pain or weakness. ] PAST MEDICAL HISTORY: 1. [asthma]. 2. [htn]. 3. [hypothyroidism ]. PAST SURGICAL HISTORY: 1. [none ]. SOCIAL HISTORY: drinks 1 beer per week, denied smoking but has been exposed to 2nd smoking for many years by her mother who smoked 4ppd, denied drug use. FAMILY HISTORY: mother and father from [place] ALLERGIES: Please see below. HOME MEDICATIONS: Please see below. ROS - all 10 point review of system is negative except for whats listed in HPI Physical exam Gen: NAD, healthy appearing , HEENT: normocephalic, atraumatic, no discharge from ears or nose, no oropharyngeal erythema or exudate, neck is supple, no lymphadenopathy, trachea midline CVS: RRR, normal S1n S2, no murmur, rubs, or gallops, +2 edema, no jvd Resp: no rhonchi, or crackles, +poor air movements, b/l wheezes Abd : soft nontender, normal bowel sounds, no rebound tenderness or guarding MSK: +ereythema and swelling b/l LE (feet), no deformity, full range of motion, strength 5/5 Neuro: AOAx3, no confusion, no focal deficit Psych: normal mood and affect, good judgment LABORATORY DATA: See below. IMAGING: [ NAME: DANNY JACKSON DATE OF : 1955 AGE: 63 SEX: F REPORT #: [id number] ROOM: ED TECHNOLOGIST: TREVON DOCTOR: RENETTA JOHNSON MD Ordered for Date&Time: 04/22/19 6303 cc: [~ rep ct ivnm] Service Date&Time: EXAMINATION REQUESTED: Chest, 1 view REASON FOR PATIENT VISIT: FEET SWELLING REASON FOR EXAM/COMMENT: sob Portable chest, 44 p.m., single AP view with the patient upright: Comparisons are 02/21 2019 and 02/28/2019. There is chronic interstitial coarsening compatible with vascular engorgement, unchanged. There is a 14 ml rounded density inferiorly in the left lung. On a chest CT dated 02/24/2019 this is a left lower lobe calcified granuloma. There are no focal infiltrates or pleural effusions. The cardiomediastinal silhouette and skeletal structures are unremarkable. Impression: Chronic interstitial coarsening compatible with vascular engorgement. Otherwise, negative.] MICROBIOLOGY: Please see below. ASSESSMENTand Plan CHf exacerbation - hx of htn - Patient denied having hx of chf, however her symptoms are consistent with chf and probnp is elevated - hold htcz , start lasix 40mg iv bid - salt and fluid restricted diet - I and Os - f/u echo - c/w other home bp meds Hx of asthma//?copd c/w home meds -duoneb q4h prn -methylprednisone 40mg bid Hypothyroidism free T4 markedly elevated and tsh wnl on 75mcg of levothyroxine hold levothyroxine repeat tft before restarting levothyroxine, and likely dose needs to be reduced Leukocytosis patient denied fever cxr not significant for pna will start levaquin f/u UA F/U RESP PANEL sputum gs and cx f/u procal bacterial ag dvt ppx full code, from home, no svc Vital Signs Vital Signs Date Time Temp Pulse Resp B/P (MAP) Pulse Ox O2 Delivery O2 Flow Rate FiO2 04/22/19 22:16 102 24 95 04/22/19 22:15 125/55 (78) 04/22/19 18:51 Room Air 04/22/19 17:28 99.3 Laboratory Data Labs 24H Laboratory Tests 2 04/22/19 17:59: POC pH (Misc Panel) 7.402, POC Base Excess (Misc Panel) 5.0H, POC Saturated Percent O2 (Misc) 100H, POC pO2 (Misc Panel) 223.0H, POC pCO2 (Misc Panel) 4 7.8H, POC HCO3 (Misc Panel) 29.7H, POC Total CO2 (Misc Panel) 31.0H 04/22/19 18:02: Immature Granulocyte % (Auto) 0.5, White Blood Count 18.9H, Red Blood Count 4.24, Hemoglobin 11.2L, Hematocrit 35.2L, Mean Corpuscular Volume 83.0, Mean Corpuscular Hemoglobin 26.4L, Mean Corpuscular Hemoglobin Concent 31.8L, Red Cell Distribution Width 16.1H, Platelet Count 373, Neutrophils (%) (Auto) 87.0H, Lymphocytes (%) (Auto) 7.3L, Monocytes (%) (Auto) 4.2, Eosinophils (%) (Auto) 0.6, Basophils (%) (Auto) 0.4, Neutrophils # (Auto) 16.5H, Lymphocytes # (Auto) 1.4L, Monocytes # (Auto) 0.8, Eosinophils # (Auto) 0.1, Basophils # (Auto) 0.1, Nucleated Red Blood Cells % (auto) 0.0, Prothrombin Time 13.2, Prothromb Time International Ratio 1.03, Activated Partial Thromboplast Time 31.0, Anion Gap 10, Glomerular Filtration Rate > 60.0, Lactic Acid Level 1.7, Calcium Level 9.3, Aspartate Amino Transf (AST/SGOT) 69H, Alanine Aminotransferase (ALT/SGPT) 25, Alkaline Phosphatase 118H, Total Bilirubin 1.2H, Direct Bilirubin 0.1, Total Creatine Kinase 229H, Creatine Kinase MB 1.7, Creatine Kinase MB Relative Index 0.74, Troponin I < 0.02, YJ-Ojf-D-Type Natriuretic Peptide 400H, Total Protein 7.2, Albumin 3.4, Albumin/Globulin Ratio 0.89L, Thyroid Stimulating Hormone (TSH) 1.300, Thyroxine (T4) 16.7H CBC/BMP Laboratory Tests 04/22/19 18:02 Red Blood Count 4.24, Mean Corpuscular Volume 83.0, Mean Corpuscular Hemoglobin 26.4 L, Mean Corpuscular Hemoglobin Concent 31.8 L, Red Cell Distribution Width 16.1 H, Neutrophils (%) (Auto) 87.0 H, Lymphocytes (%) (Auto) 7.3 L, Monocytes (%) (Auto) 4.2, Eosinophils (%) (Auto) 0.6, Basophils (%) (Auto) 0.4, Neutrophils # (Auto) 16.5 H, Lymphocytes # (Auto) 1.4 L, Monocytes # (Auto) 0.8, Eosinophils # (Auto) 0.1, Basophils # (Auto) 0.1 Microbiology Microbiology 04/22/19 Blood Culture, Received Pending 04/22/19 Blood Culture, Received Pending Home Medications Scheduled Amlodipine Besylate (Norvasc) 10 Mg Tablet, 10 MG PO DAILY Aripiprazole (Aripiprazole) 10 Mg Tablet, 5 MG PO QHS Fluticasone/Vilanterol (Breo Ellipta 200-25 Mcg INH) 1 Inh Inh, 1 PUFF INH DAILY Hydrochlorothiazide (Hydrochlorothiazide) 25 Mg Tablet, 25 MG PO DAILY Levothyroxine Sodium (Synthroid) 75 Mcg Tablet, 75 MCG PO DAILY Montelukast Sodium (Montelukast Sodium) 10 Mg Tablet, 10 MG PO QHS Potassium Chloride (Potassium Chloride) 10 Meq Capsule.er, 10 MEQ PO DAILY Sertraline HCl (Sertraline HCl) 25 Mg Tablet, 25 MG PO DAILY Scheduled PRN Albuterol Sulfate (Proair Hfa) 8.5 Gm Hfa.aer.ad, 2 PUFF INH Q4H PRN for WHEEZING Allergies Coded Allergies: No Known Allergies (Unverified , 07/30/17) A-FIB/CHADSVASC A-FIB History Current/History of A-Fib/PAF?: No Current PO Anticoag Therapy: No Age/Risk Factor Scoring CHADSVASC: CHADSVASC Response (Comments) Value Age Risk Factor Age < 65 years old 0 Gender Risk Factor Female 1 Hx of CHF No 0 Hx of HTN Yes 1 Hx of Stroke/TIA/or VTE No 0 Hx of Diabetes No 0 Hx of Vascular Disease No 0 Total 2 Treatment Treatment ordered: NONE Reason Anticoagulant not given: Not indicated/[id number] JUAN APODACA MD Apr 22, 2019 23:20
[2019-04-23 00:20] VITALS: BP 148/63
[2019-04-23 02:10] LABS: AMORPHOUS SEDIMENT SMALL (NEGATIVE); APPEARANCE, URINE CLEAR (CLEAR); BACTERIA, URINE AUTO NEGATIVE (NEGATIVE); BILIRUBIN, URINE AUTO NEGATIVE (NEGATIVE); BLOOD, URINE BLOOD NEGATIVE (NEGATIVE); COLOR, URINE YELLOW (YELLOW); GLUCOSE, URINE (UA) AUTO NEGATIVE (NEGATIVE); KETONE, URINE AUTO NEGATIVE (NEGATIVE); LEUKOCYTE ESTERASE, URINE AUTO NEGATIVE (NEGATIVE); NITRITE, URINE AUTO NEGATIVE (NEGATIVE); PROTEIN, URINE AUTO NEGATIVE (NEGATIVE); RBC, URINE AUTO 26 /HPF (0-3); SPECIFIC GRAVITY URINE AUTO 1.006 (1.002-1.035); SQUAMOUS EPITHELIAL CELL UR AU 0 /HPF (0-6); UROBILINOGEN, URINE AUTO 0.2 mg/dL (0.0-2.0); WBC, URINE AUTO 0 /HPF (0-3)
[2019-04-23 06:00] VITALS: BP 110/60
[2019-04-23] MEDS ORDERED: LEVOTHYROXINE 75MCG TABLET (0.075MG) PO SCH (06:00)
[2019-04-23 06:01] LABS: HEMATOCRIT 31.2 % (36.0-47.0); HEMOGLOBIN 10.1 g/dl (12.0-15.5); MEAN CORPUSCULAR HEMOGLOBIN 25.8 pg (27.0-33.0); MEAN CORPUSCULAR HGB CONC 32.4 g/dl (32.0-36.5); MEAN CORPUSCULAR VOLUME 79.6 fl (80.0-96.0); PLATELET COUNT, AUTOMATED 332 10^3/uL (150-450); RED BLOOD COUNT 3.92 10^6/uL (4.00-5.40); WHITE BLOOD COUNT 12.2 10^3/uL (4.0-10.0)
[2019-04-23 06:38] LABS: FREE T4 1.67 NG/DL (0.76-1.46); THYROID STIMULATING HORMONE 0.445 uIU/ML (0.358-3.740)
[2019-04-23 06:41] LABS: BLOOD UREA NITROGEN 8 MG/DL (7-18); CALCIUM LEVEL 8.8 MG/DL (8.8-10.2); CARBON DIOXIDE LEVEL 31 MEQ/L (21-32); CHLORIDE LEVEL 100 MEQ/L (98-107); GLOMERULAR FILTRATION RATE > 60.0 (>45); GLUCOSE, FASTING 166 MG/DL (70-100); MAGNESIUM LEVEL 2.3 MG/DL (1.8-2.4); POTASSIUM SERUM 3.2 MEQ/L (3.5-5.1); SODIUM LEVEL 138 MEQ/L (136-145)
[2019-04-23] MEDS ORDERED: POTASSIUM CHLORIDE 10 MEQ SR TABLET PO ONE (08:15)
[2019-04-23] MEDS ORDERED: hydroCHLOROthiazide 25 MG TAB PO SCH (09:00)
[2019-04-23] MEDS: POTASSIUM CHLORIDE 10 MEQ SR TABLET PO SCH (09:35)
[2019-04-23] MEDS: FUROSEMIDE 40 MG/4 ML VIAL (J1940) IV SCH ×2 (09:36→21:19)
[2019-04-23] MEDS: SERTRALINE HCL 25 MG TABLET PO SCH (09:37)
[2019-04-23] MEDS: amLODIPine 10 MG TAB PO SCH (09:37)
[2019-04-23] MEDS ORDERED: IPRATROPIUM 0.5MG/ALBUTEROL 2.5MG INH SOL UD 3ML (DUONEB)(J7620) NEB PRN (10:15)
--- NOTE | 2019-04-23 11:26 | IPNPDOC ---
Subjective Date Seen The patient was seen on 04/23/19. Subjective Chief Complaint/HPI Patient is still complaining of shortness of breath, and has some residual rash on her both legs General: Denies: ROS Unobtainable, Chills, Night Sweats, Fatigue, Malaise, Normal Appetite, Other Symptoms Constitutional: Denies: Chills, Fever, Malaise, Night Sweats, Weakness, Fatigue, Weight Loss, Lethargy, Other Eyes: Denies: Pain, Vision change, Conjunctivae inflammation, Eyelid inflammation, Redness, Other ENT: Denies: Head Aches, Ear Pain, Dysphagia, Sinus Congestion, Post Nasal Drip, Sore Throat, Epistaxis, Other Symptoms Skin: Denies: Rash, Lesions, Jaundice, Bruising, Itching, Dry, Breakdown, Nail Changes, Other Pulmonary: Reports: Dyspnea Cardiovascular: Denies: Chest Pain, Palpitations, Orthopnea, Paroxysmal Noc. Dyspnea, Edema, Lt Headedness, Other Symptoms Gastrointestinal: Denies: Nausea, Vomiting, Abdominal Pain, Diarrhea, Constipation, Melena, Hematochezia, Other Symptoms Musculoskeletal: Denies: Neck Pain, Back Pain, Shoulder Pain, Arm Pain, Hand Pain, Leg Pain, Foot Pain, Joint Pain, Muscle Pain, Spasms, Other Symptoms Neurological: Denies: Weakness, Numbness, Incoordination, Change in speech, Confusion, Seizures, Other Symptoms Objective Physical Examination General Exam: Positive: Alert, Cooperative Eye Exam: Positive: PERRLA, Conjunctiva & lids normal ENT Exam: Positive: Atraumatic, Mucous membr. moist/pink Neck Exam: Positive: Supple Chest Exam: Positive: Wheezing (bilateral expiratory wheezing positive) Heart Exam: Positive: Rate Normal, Normal S1, Normal S2 Abdomen Exam: Positive: Normal bowel sounds, Soft Extremity Exam: Positive: Normal pulses Neuro Exam: Positive: Strength at 5/5 X4 ext, Sensation Intact Assessment /Plan Problems (1) Asthma exacerbation Status: Acute Problem Specific Plan: Consult Specialist Problem Text: Patient was diagnosed with questionable CHF on the basis of slightly elevated BNP and chest x-ray report . She was also started on IV Lasix for CHF , while she is in negative balance secondary to IV diuresis Clinically I doubt patient has a has CHF and she has no history of cardiac disease. BNP is slightly very slightly elevated which x-rays. Chest x-ray is not consistent with distal heart failure, echocardiogram is still pending. Will probably continue IV diuresis as per orders. Delay: Report is available and then will DC 8 , But patient most likely has exacerbation of her asthma. She does have a history of asthma in the past with frequent exacerbations Will change DuoNeb to every 4 hour as scheduled and every 2 hours when necessary Start Solu-Medrol 60 mg IV every 6 hours Continue IV antibiotics. His WBC count has been responding to IV antibiotics, most likely acute bronchitis O2 support as needed A.m. level work has been ordered Repeated chest x-ray has been ordered (2) Hypokalemia Status: Acute Problem Text: Potassium supplement provided . Potassium Levels and magnesium level in a.m. Plan/VTE VTE Prophylaxis Ordered?: Yes VS, I&O, 24H, [facility] Vital Signs/I&O Vital Signs Date Time Temp Pulse Resp B/P (MAP) Pulse Ox O2 Delivery O2 Flow Rate FiO2 04/23/19 09:37 127/69 04/23/19 06:00 97.0 84 18 91 2.0 04/22/19 18:51 Room Air I&O- Last 24 Hours up to 6 AM 04/23/19 06:00 Intake Total 150 ml Output Total 550 ml Balance -400 ml Laboratory Data 24H LABS Laboratory Tests 2 04/22/19 17:59: POC pH (Misc Panel) 7.402, POC Base Excess (Misc Panel) 5.0H, POC Saturated Percent O2 (Misc) 100H, POC pO2 (Misc Panel) 223.0H, POC pCO2 (Misc Panel) 47.8H, POC HCO3 (Misc Panel) 29.7H, POC Total CO2 (Misc Panel) 31.0H 04/22/19 18:02: Immature Granulocyte % (Auto) 0.5, White Blood Count 18.9H, Red Blood Count 4.24, Hemoglobin 11.2L, Hematocrit 35.2L, Mean Corpuscular Volume 83.0, Mean Cor puscular Hemoglobin 26.4L, Mean Corpuscular Hemoglobin Concent 31.8L, Red Cell Distribution Width 16.1H, Platelet Count 373, Neutrophils (%) (Auto) 87.0H, Lymphocytes (%) (Auto) 7.3L, Monocytes (%) (Auto) 4.2, Eosinophils (%) (Auto) 0.6, Basophils (%) (Auto) 0.4, Neutrophils # (Auto) 16.5H, Lymphocytes # (Auto) 1.4L, Monocytes # (Auto) 0.8, Eosinophils # (Auto) 0.1, Basophils # (Auto) 0.1, Nucleated Red Blood Cells % (auto) 0.0, Prothrombin Time 13.2, Prothromb Time International Ratio 1.03, Activated Partial Thromboplast Time 31.0, Anion Gap 10, Glomerular Filtration Rate > 60.0, Lactic Acid Level 1.7, Calcium Level 9.3, Aspartate Amino Transf (AST/SGOT) 69H, Alanine Aminotransferase (ALT/SGPT) 25, Alkaline Phosphatase 118H, Total Bilirubin 1.2H, Direct Bilirubin 0.1, Total Creatine Kinase 229H, Creatine Kinase MB 1.7, Creatine Kinase MB Relative Index 0.74, Troponin I < 0.02, IB-Tqm-C-Type Natriuretic Peptide 400H, Total Protein 7.2, Albumin 3.4, Albumin/Globulin Ratio 0.89L, Thyroid Stimulating Hormone (TSH) 1.300, Thyroxine (T4) 16.7H 04/23/19 01:56: Urine Appearance CLEAR, Urine Color YELLOW, Urine pH 8.0, Urine Specific [place] 1.006, Urine Protein NEGATIVE, Urine Glucose (UA) NEGATIVE, Urine Ketones NEGATIVE, Urine Urobilinogen 0.2, Urine Bilirubin NEGATIVE, Urine Leukocyte Esterase NEGATIVE, Urine Blood NEGATIVE, Urine Nitrite NEGATIVE, Urine WBC (A uto) 0, Urine RBC (Auto) 26H, Urine Hyaline Casts (Auto) 0, Urine Bacteria (Auto) NEGATIVE, Urine Squamous Epithelial Cells 0, Urine Amorphous Sediment SMALLH, Urine Sperm (Auto) 04/23/19 05:38: Nucleated Red Blood Cells % (auto) 0.0, Anion Gap 7L, Glomerular Filtration Rate > 60.0, Calcium Level 8.8, Thyroid Stimulating Hormone (TSH) 0.445, Blood Urea Nitrogen 8, Creatinine 0.70, Sodium Level 138, Potassium Level 3.2#L, Chloride Level 100, Carbon Dioxide Level 31, Magnesium Level 2.3, Free Thyroxine 1.67H CBC/BMP Laboratory Tests 04/22/19 18:02 Red Blood Count 4.24, Mean Corpuscular Volume 83.0, Mean Corpuscular Hemoglobin 26.4 L, Mean Corpuscular Hemoglobin Concent 31.8 L, Red Cell Distribution Width 16.1 H, Neutrophils (%) (Auto) 87.0 H, Lymphocytes (%) (Auto) 7.3 L, Monocytes (%) (Auto) 4.2, Eosinophils (%) (Auto) 0.6, Basophils (%) (Auto) 0.4, Neutrophils # (Auto) 16.5 H, Lymphocytes # (Auto) 1.4 L, Monocytes # (Auto) 0.8, Eosinophils # (Auto) 0.1, Basophils # (Auto) 0.1 04/23/19 05:38 Red Blood Count 3.92 L, Mean Corpuscular Volume 79.6 L, Mean Corpuscular Hemoglobin 25.8 L, Mean Corpuscular Hemoglobin Concent 32.4, Red Cell Distribution Width 16.1 H, Calcium Level 8.8 Microbiology Microbiology 04/22/19 Blood Culture, Received Pending 04/22/19 Blood Culture, Received Pending 04/23/19 Respiratory Virus Panel (PCR) (SUZAN) - Final, Complete 04/23/19 Gram Stain - Final, Complete 04/23/19 Sputum Culture - Final, Complete 04/23/19 Urine Culture, Received Pending JANELLE SAMANO MD Apr 23, 2019 11:26
[2019-04-23] MEDS: IPRATROPIUM 0.5MG/ALBUTEROL 2.5MG INH SOL UD 3ML (DUONEB)(J7620) NEB SCH ×4 (12:00→23:28)
[2019-04-23] MEDS: methylPREDNISolone INJ 125 MG/2 ML VIAL (J2930) IV SCH ×3 (12:22→23:39)
--- NOTE | 2019-04-23 13:12 | REP ---
Portable chest, 11:51 a.m., single AP view with the patient sitting: Comparison is 04/22/2019. There is interstitial coarsening, unchanged. There are no focal infiltrates or pleural effusions. Cardiac size is normal. The [place], mediastinum, skeletal structures are unremarkable. Impression: There is no interval change. Electronically Signed by Constantin Perry MD 04/23/2019 01:04 P
[2019-04-23 14:00] VITALS: BP 130/68
--- NOTE | 2019-04-23 14:39 | ECHO ---
DATE OF PROCEDURE: 04/23/2019 REFERRING PHYSICIAN: Dr. Samantha You INDICATION: Dyspnea. HEIGHT: 142 cm WEIGHT: 110 kg DIMENSIONS: IV: 1.1 LV: 5.5 LVPW: 1.0 LA: 3.8 Aorta: 2.5 Mitral E wave velocity: 136 A wave: 143 E prime septal: 8.7 E prime lateral: 7.0 Left atrium volume index: 35 IVC: 2.4 FINDINGS: This study is of somewhat limited technical quality corresponding to patient's body habitus. Patient is in sinus rhythm. Left ventricle is normal size and probably normal systolic function based on fair visualization. I do not appreciate any segmental wall motion abnormalities. Right ventricle was poorly visualized but grossly appears normal. Left atrium is moderately enlarged. Right atrium was poorly seen. Aortic valve has minimal sclerotic abnormalities but mobility is preserved. Mitral and tricuspid valves also appear normal. Pulmonic valve was poorly visualized but grossly is normal as well. No pericardial effusion is noted. Inferior vena cava is dilated and there is minimal collapse with respiration suggestive of high central venous pressure. Aortic root appears normal. Aortic arch was not well seen. Doppler interrogation of aortic valve reveals no significant stenosis or insufficiency. There is trace mitral insufficiency. There is probably trace tricuspid insufficiency but quality of TR jet was poor and consequently, I am unable to estimate pulmonary artery pressure. Pulmonic valve is functionally competent. Mitral inflow pattern and tissue Doppler imaging of mitral annulus reveal grade 1 diastolic dysfunction. CONCLUSIONS: 1. Study is of fair technical quality. 2. Normal LV size with preserved LV systolic function and grade 1 diastolic dysfunction. 3. No hemodynamically significant valvular disease. 4 Probably high central venous pressure but unable to estimate pulmonary artery pressure. COMMENT: Subacute bacterial endocarditis (SBE) prophylaxis is not recommended.
[2019-04-23] MEDS: MONTELUKAST 10 MG TAB PO SCH (21:18)
[2019-04-23 22:00] VITALS: BP 125/58
[2019-04-24] MEDS: IPRATROPIUM 0.5MG/ALBUTEROL 2.5MG INH SOL UD 3ML (DUONEB)(J7620) NEB SCH ×5 (03:29→23:17)
[2019-04-24] MEDS: methylPREDNISolone INJ 125 MG/2 ML VIAL (J2930) IV SCH ×4 (05:06→22:12)
[2019-04-24 05:45] LABS: BASO % 0.1 % (0.0-1.0); EOS % 0.1 % (0.0-3.0); HEMATOCRIT 30.5 % (36.0-47.0); HEMOGLOBIN 9.8 g/dl (12.0-15.5); LYMPH # 0.6 10^3/uL (1.5-4.5); LYMPH % 3.6 % (24.0-44.0); MEAN CORPUSCULAR HEMOGLOBIN 25.7 pg (27.0-33.0); MEAN CORPUSCULAR HGB CONC 32.1 g/dl (32.0-36.5); MEAN CORPUSCULAR VOLUME 79.8 fl (80.0-96.0); MONO # 0.1 10^3/uL (0.0-0.8); MONO % 0.7 % (0.0-5.0); NEUTROPHILS # 15.7 10^3/uL (1.8-7.7); NEUTROPHILS % 94.6 % (36.0-66.0); PLATELET COUNT, AUTOMATED 344 10^3/uL (150-450); RED BLOOD COUNT 3.82 10^6/uL (4.00-5.40); WHITE BLOOD COUNT 16.6 10^3/uL (4.0-10.0)
[2019-04-24 06:00] VITALS: BP 112/53
[2019-04-24 06:14] LABS: ALT/SGPT 17 U/L (12-78); BILIRUBIN,TOTAL 0.6 MG/DL (0.2-1.0); BLOOD UREA NITROGEN 18 MG/DL (7-18); CALCIUM LEVEL 8.8 MG/DL (8.8-10.2); CARBON DIOXIDE LEVEL 32 MEQ/L (21-32); CHLORIDE LEVEL 99 MEQ/L (98-107); CREATININE FOR GFR 0.84 MG/DL (0.55-1.30); GLOMERULAR FILTRATION RATE > 60.0 (>45); GLUCOSE, FASTING 161 MG/DL (70-100); MAGNESIUM LEVEL 2.4 MG/DL (1.8-2.4); NT-PRO BNP 1758 PG/ML (<125); POTASSIUM SERUM 3.1 MEQ/L (3.5-5.1); SODIUM LEVEL 139 MEQ/L (136-145); TOTAL PROTEIN 6.5 GM/DL (6.4-8.2)
--- NOTE | 2019-04-24 07:08 | ECGEPIP ---
[facility] - ED Test Date: 2019-04-22 Pat Name: DANNY [facility] Department: Room: [place] [address] Gender: Female [place] Supervisor: ct : 1955 Requested By: RENETTA Barahona Order Number: [id number] Reading MD: Rosa Rice Measurements Intervals [place] Rate: 102 P: 60 MT: 149 QRS: 4 QRSD: 97 T: -34 QT: 368 QTc: 480 Interpretive Statements SINUS TACHYCARDIA WITH OCCASIONAL SUPRAVENTRICULAR PREMATURE COMPLEXES NONSPECIFIC ST & T-WAVE ABNORMALITY ABNORMAL RHYTHM ECG baseline artifact may affect interpretation INCREASED RATE COMPARED 07/31/17 Electronically Signed on 04-24-2019 7:08:03 EDT by Rosa Rice
[2019-04-24] MEDS: POTASSIUM CHLORIDE 10 MEQ SR TABLET PO SCH (08:09)
[2019-04-24] MEDS: FUROSEMIDE 40 MG/4 ML VIAL (J1940) IV SCH (08:09)
[2019-04-24] MEDS: SERTRALINE HCL 25 MG TABLET PO SCH (08:10)
[2019-04-24] MEDS: amLODIPine 10 MG TAB PO SCH (08:10)
[2019-04-24] MEDS ORDERED: POTASSIUM CHLORIDE 10 MEQ SR TABLET PO ONE (09:30)
[2019-04-24] MEDS ORDERED: SENOKOT S TAB PO PRN (10:15)
--- NOTE | 2019-04-24 10:56 | IPNPDOC ---
Subjective Date Seen The patient was seen on 04/24/19. Subjective Chief Complaint/HPI Patient is still complaining of wheezing. The rash on both legs is slightly improved General: Denies: ROS Unobtainable, Chills, Night Sweats, Fatigue, Malaise, Normal Appetite, Other Symptoms Constitutional: Denies: Chills, Fever, Malaise, Night Sweats, Weakness, Fatigue, Weight Loss, Lethargy, Other Eyes: Denies: Pain, Vision change, Conjunctivae inflammation, Eyelid inflamma tion, Redness, Other ENT: Denies: Head Aches, Ear Pain, Dysphagia, Sinus Congestion, Post Nasal Drip, Sore Throat, Epistaxis, Other Symptoms Skin: Denies: Rash, Lesions, Jaundice, Bruising, Itching, Dry, Breakdown, Nail Changes, Other Pulmonary: Reports: Dyspnea Cardiovascular: Denies: Chest Pain, Palpitations, Orthopnea, Paroxysmal Noc. Dyspnea, Edema, Lt Headedness, Other Symptoms Gastrointestinal: Denies: Nausea, Vomiting, Abdominal Pain, Diarrhea, Constipation, Melena, Hematochezia, Other Symptoms Genitourinary: Denies: Dysuria, Frequency, Incontinence, Hematuria, Retention, Other Symptoms Psych: Denies: Mood Normal, Anxiety, Depression, Memory Issues, Thoughts of Self Harm, Anger, Thoughts of Harming Other, Other Psych Objective Physical Examination General Exam: Positive: Alert, Cooperative Eye Exam: Positive: PERRLA, Conjunctiva & lids normal ENT Exam: Positive: Atraumatic, Mucous membr. moist/pink Neck Exam: Positive: Supple Chest Exam: Positive: Wheezing (bilateral expiratory wheezing positive) Heart Exam: Positive: Rate Normal, Normal S1, Normal S2 Abdomen Exam: Positive: Normal bowel sounds, Soft Extremity Exam: Positive: Normal pulses Skin Exam: Positive: Other skin issue (. Scattered purpura duration both lower extremity just below the knee on the anterior aspect) Neuro Exam: Positive: Strength at 5/5 X4 ext, Sensation Intact Assessment /Plan Problems (1) Asthma exacerbation Status: Acute Problem Specific Plan: Consult Specialist Problem Text: Patient was diagnosed with questionable CHF on the basis of slightly elevated BNP and chest x-ray report . She was also started on IV Lasix for CHF , while she is in negative balance secondary to IV diuresis Clinically I doubt patient has a has CHF and she has no history of cardiac disease. BNP is slightly very slightly elevated which x-rays. Chest x-ray is not consistent with distal heart failure, echocardiogram is within normal range and will DC IV diuresis , But patient most likely has exacerbation of her asthma. She does have a history of asthma in the past with frequent exacerbations Will change DuoNeb to every 4 hour as scheduled and every 2 hours when necessary Increase Solu-Medrol 80 mg IV every 6 hours Monitor CBC, CMP . A chest x-ray, no change O2 support as needed (2) Hypokalemia Status: Acute Problem Text: Potassium supplements given Peak potassium level in a.m. (3) Allergic pneumonitis Status: Acute Problem Text: There is no clinical evidence of CHF per se, chronic interstitial findings most likely secondary to allergic pneumonitis Continue IV steroids add Pepcid 20 mg IVP every 12 hours to block the H1 receptors Solu-Medrol has been increased to 80 mg IV every 6 hours Will monitor clinically Plan/VTE VTE Prophylaxis Ordered?: Yes VS, I&O, 24H, Fishbone Vital Signs/I&O Vital Signs Date Time Temp Pulse Resp B/P (MAP) Pulse Ox O2 Delivery O2 Flow Rate FiO2 04/24/19 08:10 86 131/62 04/24/19 06:00 96.9 21 91 04/23/19 06:00 2.0 04/22/19 18:51 Room Air I&O- Last 24 Hours up to 6 AM 04/24/19 06:00 Intake Total 1166 ml Output Total 725 ml Balance 441 ml Laboratory Data 24H LABS Laboratory Tests 2 04/24/19 05:25: Immature Granulocyte % (Auto) 0.9, White Blood Count 16.6H, Red Blood Count 3.82L, Hemoglobin 9.8L, Hematocrit 30.5L, Mean Corpuscular Volume 79.8L, Mean Corpuscular Hemoglobin 25.7L, Mean Corpuscular Hemoglobin Concent 32.1, Red Cell Distribution Width 16.6H, Platelet Count 344, Neutrophils (%) (Auto) 94.6H, Lymphocytes (%) (Auto) 3.6L, Monocytes (%) (Auto) 0.7, Eosinophils (%) (Auto) 0. 1, Basophils (%) (Auto) 0.1, Neutrophils # (Auto) 15.7H, Lymphocytes # (Auto) 0.6L, Monocytes # (Auto) 0.1, Eosinophils # (Auto) 0.0, Basophils # (Auto) 0.0, Nucleated Red Blood Cells % (auto) 0.0, Anion Gap 8, Glomerular Filtration Rate > 60.0, Blood Urea Nitrogen 18#, Creatinine 0.84, Sodium Level 139, Potassium Level 3.1L, Chloride Level 99, Carbon Dioxide Level 32, Calcium Level 8.8, Aspartate Amino Transf (AST/SGOT) 14, Alanine Aminotransferase (ALT/SGPT) 17, Alkaline Phosphatase 78, Total Bilirubin 0.6, Total Protein 6.5, Albumin 3.0L, Magnesium Level 2.4, XN-Kaf-K-Type Natriuretic Peptide 1758H, Albumin/Globulin Ratio 0.86L CBC/BMP Laboratory Tests 04/24/19 05:25 Red Blood Count 3.82 L, Mean Corpuscular Volume 79.8 L, Mean Corpuscular Hemoglobin 25.7 L, Mean Corpuscular Hemoglobin Concent 32.1, Red Cell Distribution Width 16.6 H, Neutrophils (%) (Auto) 94.6 H, Lymphocytes (%) (Auto) 3.6 L, Monocytes (%) (Auto) 0.7, Eosinophils (%) (Auto) 0.1, Basophils (%) (Auto) 0.1, Neutrophils # (Auto) 15.7 H, Lymphocytes # (Auto) 0.6 L, Monocytes # (Auto) 0.1, Eosinophils # (Auto) 0.0, Basophils # (Auto) 0.0, Calcium Level 8.8, Aspartate Amino Transf (AST/SGOT) 14, Alanine Aminotransferase (ALT/SGPT) 17, Alkaline Phosphatase 78, Total Bilirubin 0.6, Total Protein 6.5, Albumin 3.0 L Microbiology Microbiology 04/22/19 Blood Culture - Preliminary, Resulted No growth after 24 hours . All specim... 04/22/19 Blood Culture - Preliminary, Resulted No growth after 24 hours . All specim... 04/23/19 Respiratory Virus Panel (PCR) (SUZAN) - Final, Complete 04/23/19 Gram Stain - Final, Complete 04/23/19 Sputum Culture - Final, Complete 04/23/19 Urine Culture - Final, Complete JANELLE SAMANO MD Apr 24, 2019 10:56
[2019-04-24] MEDS: FAMOTIDINE IV BAG 20 MG in APPROPRIATE DILUENT 1 EA IV SCH ×2 (11:54→22:12)
[2019-04-24 14:00] VITALS: BP 127/61
[2019-04-24] MEDS: ENOXAPARIN 40 MG/0.4 ML SYRINGE (J1650) SC SCH (16:00)
[2019-04-24] MEDS: MONTELUKAST 10 MG TAB PO SCH (20:33)
[2019-04-24 22:00] VITALS: BP 130/62
[2019-04-25] MEDS: IPRATROPIUM 0.5MG/ALBUTEROL 2.5MG INH SOL UD 3ML (DUONEB)(J7620) NEB SCH ×6 (04:05→22:57)
[2019-04-25] MEDS: methylPREDNISolone INJ 125 MG/2 ML VIAL (J2930) IV SCH ×4 (05:40→22:02)
[2019-04-25 06:00] VITALS: BP 127/58
[2019-04-25 06:07] LABS: BASO % 0.1 % (0.0-1.0); HEMATOCRIT 30.4 % (36.0-47.0); HEMOGLOBIN 9.8 g/dl (12.0-15.5); LYMPH # 0.6 10^3/uL (1.5-4.5); LYMPH % 3.8 % (24.0-44.0); MEAN CORPUSCULAR HEMOGLOBIN 26.6 pg (27.0-33.0); MEAN CORPUSCULAR HGB CONC 32.2 g/dl (32.0-36.5); MEAN CORPUSCULAR VOLUME 82.6 fl (80.0-96.0); MONO # 0.1 10^3/uL (0.0-0.8); MONO % 0.8 % (0.0-5.0); NEUTROPHILS # 14.6 10^3/uL (1.8-7.7); NEUTROPHILS % 94.3 % (36.0-66.0); PLATELET COUNT, AUTOMATED 319 10^3/uL (150-450); RED BLOOD COUNT 3.68 10^6/uL (4.00-5.40); WHITE BLOOD COUNT 15.4 10^3/uL (4.0-10.0)
[2019-04-25 06:30] LABS: ALT/SGPT 22 U/L (12-78); BILIRUBIN,TOTAL 0.5 MG/DL (0.2-1.0); BLOOD UREA NITROGEN 27 MG/DL (7-18); CALCIUM LEVEL 8.8 MG/DL (8.8-10.2); CARBON DIOXIDE LEVEL 32 MEQ/L (21-32); CHLORIDE LEVEL 98 MEQ/L (98-107); CREATININE FOR GFR 0.94 MG/DL (0.55-1.30); GLOMERULAR FILTRATION RATE > 60.0 (>45); GLUCOSE, FASTING 156 MG/DL (70-100); POTASSIUM SERUM 3.6 MEQ/L (3.5-5.1); SODIUM LEVEL 137 MEQ/L (136-145); TOTAL PROTEIN 6.6 GM/DL (6.4-8.2)
[2019-04-25] MEDS: SERTRALINE HCL 25 MG TABLET PO SCH (08:52)
[2019-04-25] MEDS: ENOXAPARIN 40 MG/0.4 ML SYRINGE (J1650) SC SCH (08:52)
[2019-04-25] MEDS: POTASSIUM CHLORIDE 10 MEQ SR TABLET PO SCH (08:52)
[2019-04-25] MEDS: amLODIPine 10 MG TAB PO SCH (08:54)
[2019-04-25] MEDS: FAMOTIDINE IV BAG 20 MG in APPROPRIATE DILUENT 1 EA IV SCH ×2 (10:48→22:02)
--- NOTE | 2019-04-25 11:23 | IPNPDOC ---
Subjective Date Seen The patient was seen on 04/25/19. Subjective Chief Complaint/HPI Feeling slightly better but still has wheezing General: Denies: ROS Unobtainable, Chills, Night Sweats, Fatigue, Malaise, N ormal Appetite, Other Symptoms Constitutional: Denies: Chills, Fever, Malaise, Night Sweats, Weakness, Fatigue, Weight Loss, Lethargy, Other Eyes: Denies: Pain, Vision change ENT: Denies: Head Aches, Ear Pain, Dysphagia, Sinus Congestion, Post Nasal Drip, Sore Throat, Epistaxis, Other Symptoms Skin: Denies: Rash, Lesions, Jaundice, Bruising, Itching, Dry, Breakdown, Nail Changes, Other Pulmonary: Reports: Dyspnea Cardiovascular: Denies: Chest Pain, Palpitations, Orthopnea, Paroxysmal Noc. Dyspnea, Edema, Lt Headedness, Other Symptoms Gastrointestinal: Denies: Nausea, Vomiting, Abdominal Pain, Diarrhea, Constipation, Melena, Hematochezia, Other Symptoms Musculoskeletal: Denies: Neck Pain, Back Pain, Shoulder Pain, Arm Pain, Hand Pain, Leg Pain, Foot Pain, Joint Pain, Muscle Pain, Spasms, Other Symptoms Neurological: Denies: Weakness, Numbness, Incoordination, Change in speech, Confusion, Seizures, Other Symptoms Objective Physical Examination General Exam: Positive: Alert, Cooperative Eye Exam: Positive: PERRLA, Conjunctiva & lids normal ENT Exam: Positive: Atraumatic, Mucous membr. moist/pink Neck Exam: Positive: Supple Chest Exam: Positive: Wheezing (bilateral expiratory wheezing positive) Heart Exam: Positive: Rate Normal, Normal S1, Normal S2 Abdomen Exam: Positive: Normal bowel sounds, Soft Extremity Exam: Positive: Normal pulses Skin Exam: Positive: Other skin issue (. Scattered purpura duration both lower extremity just below the knee on the anterior aspect) Neuro Exam: Positive: Strength at 5/5 X4 ext, Sensation Intact Assessment /Plan Problems (1) Asthma exacerbation Status: Acute Problem Specific Plan: Consult Specialist Problem Text: Patient was diagnosed with questionable CHF on the basis of slightly elevated BNP and chest x-ray report . She was also started on IV Lasix for CHF , while she is in negative balance secondary to IV diuresis Clinically I doubt patient has a has CHF and she has no history of cardiac disease. BNP is slightly very slightly elevated which x-rays. Chest x-ray is not consistent with distal heart failure, echocardiogram is within normal range and will DC IV diuresis But patient most likely has exacerbation of her asthma. She does have a history of asthma in the past with frequent exacerbations Will change DuoNeb to every 4 hour as scheduled and every 2 hours when necessary Continue Solu-Medrol 80 mg IV every 6 hours Monitor CBC, CMP Repeat chest x-ray, no change O2 support as needed (2) Hypokalemia Status: Resolved Problem Text: Potassium supplements given Peak potassium level in a.m. (3) Allergic pneumonitis Status: Acute Problem Text: There is no clinical evidence of CHF per se, chronic interstitial findings most likely secondary to allergic pneumonitis Continue IV steroids add Pepcid 20 mg IVP every 12 hours to block the H1 receptors Solu-Medrol has been increased to 80 mg IV every 6 hours Will monitor clinically Plan/VTE VTE Prophylaxis Ordered?: Yes VS, [facility] Vital Signs/I&O Vital Signs Date Time Temp Pulse Resp B/P (MAP) Pulse Ox O2 Delivery O2 Flow Rate FiO2 04/25/19 08:54 95 121/60 04/25/19 06:00 96.9 20 91 04/23/19 06:00 2.0 04/22/19 18:51 Room Air I&O- Last 24 Hours up to 6 AM 04/25/19 06:00 Intake Total 2138 ml Output Total 0 ml Balance 2138 ml Laboratory Data 24H LABS Laboratory Tests 2 04/25/19 05:41: Immature Granulocyte % (Auto) 1.0, White Blood Count 15.4H, Red Blood Count 3.68L, Hemoglobin 9.8L, Hematocrit 30.4L, Mean Corpuscular Volume 82.6, Mean Corpuscular Hemoglobin 26.6L, Mean Corpuscular Hemoglobin Concent 32.2, Red Cell Distribution Width 16.8H, Platelet Count 319, Neutrophils (%) (Auto) 94.3H, Lymphocytes (%) (Auto) 3.8L, Monocytes (%) (Auto) 0.8, Eosinophils (%) (Auto) 0.0, Basophils (%) (Auto) 0.1, Neutrophils # (Auto) 14.6H, Lymphocytes # (Auto) 0.6L, Monocytes # (Auto) 0.1, Eosinophils # (Auto) 0.0, Basophils # (Auto) 0.0, Nucleated Red Blood Cells % (auto) 0.0, Anion Gap 7L, Glomerular Filtration Rate > 60.0, Blood Urea Nitrogen 27H, Creatinine 0.94, Sodium Level 137, Potassium Level 3.6, Chloride Level 98, Carbon Dioxide Level 32, Calcium Level 8.8, Aspartate Amino Transf (AST/SGOT) 14, Alanine Aminotransferase (ALT/SGPT) 22, Alkaline Phosphatase 74, Total Bilirubin 0.5, Total Protein 6.6, Albumin 3.0L, Albumin/Globulin Ratio 0.83L CBC/BMP Laboratory Tests 04/25/19 05:41 Red Blood Count 3.68 L, Mean Corpuscular Volume 82.6, Mean Corpuscular Hemoglobin 26.6 L, Mean Corpuscular Hemoglobin Concent 32.2, Red Cell Distribution Width 16.8 H, Neutrophils (%) (Auto) 94.3 H, Lymphocytes (%) (Auto) 3.8 L, Monocytes (%) (Auto) 0.8, Eosinophils (%) (Auto) 0.0, Basophils (%) (Auto) 0.1, Neutrophils # (Auto) 14.6 H, Lymphocytes # (Auto) 0.6 L, Monocytes # (Auto) 0.1, Eosinophils # (Auto) 0.0, Basophils # (Auto) 0.0, Calcium Level 8.8, Aspartate Amino Transf (AST/SGOT) 14, Alanine Aminotransferase (ALT/SGPT) 22, Alkaline Phosphatase 74, Total Bilirubin 0.5, Total Protein 6.6, Albumin 3.0 L Microbiology Microbiology 04/22/19 Blood Culture - Preliminary, Resulted No Growth after 48 hours. All Specime... 04/22/19 Blood Culture - Preliminary, Resulted No Growth after 48 hours. All Specime... 04/23/19 Respiratory Virus Panel (PCR) ([facility]) - Final, Complete 04/23/19 Gram Stain - Final, Complete 04/23/19 Sputum Culture - Final, Complete 04/23/19 Urine Culture - Final, Complete JANELLE SAMANO MD Apr 25, 2019 11:23
[2019-04-25 14:00] VITALS: BP 130/68
[2019-04-25] MEDS: MONTELUKAST 10 MG TAB PO SCH (21:00)
[2019-04-25 22:00] VITALS: BP 138/67
[2019-04-26] MEDS: IPRATROPIUM 0.5MG/ALBUTEROL 2.5MG INH SOL UD 3ML (DUONEB)(J7620) NEB SCH ×6 (03:01→23:19)
[2019-04-26] MEDS: methylPREDNISolone INJ 125 MG/2 ML VIAL (J2930) IV SCH ×4 (05:27→22:56)
[2019-04-26 06:00] VITALS: BP 128/68
[2019-04-26 06:50] LABS: BASO % 0.1 % (0.0-1.0); EOS % 0.1 % (0.0-3.0); HEMATOCRIT 31.3 % (36.0-47.0); HEMOGLOBIN 9.9 g/dl (12.0-15.5); LYMPH # 0.6 10^3/uL (1.5-4.5); LYMPH % 4.8 % (24.0-44.0); MEAN CORPUSCULAR HEMOGLOBIN 25.5 pg (27.0-33.0); MEAN CORPUSCULAR HGB CONC 31.6 g/dl (32.0-36.5); MEAN CORPUSCULAR VOLUME 80.7 fl (80.0-96.0); MONO # 0.1 10^3/uL (0.0-0.8); MONO % 1.1 % (0.0-5.0); NEUTROPHILS # 11.4 10^3/uL (1.8-7.7); PLATELET COUNT, AUTOMATED 334 10^3/uL (150-450); RED BLOOD COUNT 3.88 10^6/uL (4.00-5.40); WHITE BLOOD COUNT 12.4 10^3/uL (4.0-10.0)
[2019-04-26 07:25] LABS: ALBUMIN 3.2 GM/DL (3.2-5.2); ALT/SGPT 26 U/L (12-78); BILIRUBIN,TOTAL 0.8 MG/DL (0.2-1.0); BLOOD UREA NITROGEN 20 MG/DL (7-18); CARBON DIOXIDE LEVEL 31 MEQ/L (21-32); CHLORIDE LEVEL 102 MEQ/L (98-107); CREATININE FOR GFR 0.82 MG/DL (0.55-1.30); GLOMERULAR FILTRATION RATE > 60.0 (>45); GLUCOSE, FASTING 154 MG/DL (70-100); POTASSIUM SERUM 3.7 MEQ/L (3.5-5.1); SODIUM LEVEL 138 MEQ/L (136-145); TOTAL PROTEIN 6.6 GM/DL (6.4-8.2)
[2019-04-26] MEDS: ENOXAPARIN 40 MG/0.4 ML SYRINGE (J1650) SC SCH (08:21)
[2019-04-26] MEDS: amLODIPine 10 MG TAB PO SCH (08:22)
[2019-04-26] MEDS: POTASSIUM CHLORIDE 10 MEQ SR TABLET PO SCH (08:22)
[2019-04-26] MEDS: SERTRALINE HCL 25 MG TABLET PO SCH (08:22)
[2019-04-26] MEDS: FAMOTIDINE IV BAG 20 MG in APPROPRIATE DILUENT 1 EA IV SCH ×2 (11:04→22:56)
--- NOTE | 2019-04-26 11:10 | IPNPDOC ---
Subjective Date Seen The patient was seen on 04/26/19. Subjective Chief Complaint/HPI Patient feeling slightly better than yesterday. Is able to move some air in no apparent distress Pulmonary: Reports: Dyspnea Cardiovascular: Denies: Chest Pain, Palpitations, Orthopnea, Paroxysmal Noc. Dyspnea, Edema, Lt Headedness, Other Symptoms Gastrointestinal: Denies: Nausea, Vomiting, Abdominal Pain, Diarrhea, Constipation, Melena, Hematochezia, Other Symptoms Genitourinary: Denies: Dysuria, Frequency, Incontinence, Hematuria, Retention, Other Symptoms Musculoskeletal: Denies: Neck Pain, Back Pain, Shoulder Pain, Arm Pain, Hand Pain, Leg Pain, Foot Pain, Joint Pain, Muscle Pain, Spasms, Other Symptoms Neurological: Denies: Weakness, Numbness, Incoordination, Change in speech, Confusion, Seizures, Other Symptoms Objective Physical Examination General Exam: Positive: Alert, Cooperative Eye Exam: Positive: PERRLA, Conjunctiva & lids normal ENT Exam: Positive: Atraumatic, Mucous membr. moist/pink Neck Exam: Positive: Supple Chest Exam: Positive: Wheezing (bilateral expiratory wheezing positive) Heart Exam: Positive: Rate Normal, Normal S1, Normal S2 Abdomen Exam: Positive: Normal bowel sounds, Soft Extremity Exam: Positive: Normal pulses Skin Exam: Positive: Other skin issue (. Scattered purpura duration both lower extremity just below the knee on the anterior aspect) Assessment /Plan Problems (1) Asthma exacerbation Status: Acute Problem Specific Plan: Consult Specialist Problem Text: Patient was diagnosed with questionable CHF on the basis of slightly elevated BNP and chest x-ray report . She was also started on IV Lasix for CHF , while she is in negative balance secondary to IV diuresis Clinically I doubt patient has a has CHF and she has no history of cardiac disease. BNP is slightly very slightly elevated which x-rays. Chest x-ray is not consistent with distal heart failure, echocardiogram is within normal range and will DC IV diuresis But patient most likely has exacerbation of her asthma. She does have a history of asthma in the past with frequent exacerbations Continue DuoNeb every 4 hours and every 2 hours when necessary Continue Solu-Medrol 80 mg IV every 6 hours Patient is now slowly responding to steroids and hopefully will continue to improve, so IV Pepcid was also was included to block a H1 receptors Repeat chest x-ray, no change O2 support as needed Discharge planning depends on patient's recovery from the symptoms (2) Hypokalemia Status: Resolved Problem Text: Potassium supplements given Peak potassium level in a.m. (3) Allergic pneumonitis Status: Acute Problem Text: There is no clinical evidence of CHF per se, chronic interstitial findings most likely secondary to allergic pneumonitis Continue IV steroids add Pepcid 20 mg IVP every 12 hours to block the H1 receptors Solu-Medrol has been increased to 80 mg IV every 6 hours Will monitor clinically Plan/VTE VTE Prophylaxis Ordered?: Yes VS, I&O, [facility], [facility] Vital Signs/I&O Vital Signs Date Time Temp Pulse Resp B/P (MAP) Pulse Ox O2 Delivery O2 Flow Rate FiO2 04/26/19 08:22 92 122/66 04/26/19 06:00 99.0 16 96 04/23/19 06:00 2.0 04/22/19 18:51 Room Air I&O- Last 24 Hours up to 6 AM 04/26/19 06:00 Intake Total 2510 ml Balance 2510 ml Laboratory Data 24H LABS Laboratory Tests 2 04/26/19 06:12: Immature Granulocyte % (Auto) 1.9, White Blood Count 12.4H, Red Blood Count 3.88L, Hemoglobin 9.9L, Hematocrit 31.3L, Mean Corpuscular Volume 80.7, Mean Corpuscular Hemoglobin 25.5L, Mean Corpuscular Hemoglobin Concent 31.6L, Red Cell Distribution Width 16.9H, Platelet Count 334, Neutrophils (%) (Auto) 92.0H, Lymphocytes (%) (Auto) 4.8L, Monocytes (%) (Auto) 1.1, Eosinophils (%) (Auto) 0. 1, Basophils (%) (Auto) 0.1, Neutrophils # (Auto) 11.4H, Lymphocytes # (Auto) 0.6L, Monocytes # (Auto) 0.1, Eosinophils # (Auto) 0.0, Basophils # (Auto) 0.0, Nucleated Red Blood Cells % (auto) 0.2H, Anion Gap 5L, Glomerular Filtration Rate > 60.0, Blood Urea Nitrogen 20H, Creatinine 0.82, Sodium Level 138, Potassium Level 3.7, Chloride Level 102, Carbon Dioxide Level 31, Calcium Level 9.0, Aspartate Amino Transf (AST/SGOT) 19, Alanine Aminotransferase (ALT/SGPT) 26, Alkaline Phosphatase 71, Total Bilirubin 0.8#, Total Protein 6.6, Albumin 3.2, Albumin/Globulin Ratio 0.94L CBC/BMP Laboratory Tests 04/26/19 06:12 Red Blood Count 3.88 L, Mean Corpuscular Volume 80.7, Mean Corpuscular Hemoglobin 25.5 L, Mean Corpuscular Hemoglobin Concent 31.6 L, Red Cell Distribution Width 16.9 H, Neutrophils (%) (Auto) 92.0 H, Lymphocytes (%) (Auto) 4.8 L, Monocytes (%) (Auto) 1.1, Eosinophils (%) (Auto) 0.1, Basophils (%) (Auto) 0.1, Neutrophils # (Auto) 11.4 H, Lymphocytes # (Auto) 0.6 L, Monocytes # (Auto) 0.1, Eosinophils # (Auto) 0.0, Basophils # (Auto) 0.0, Calcium Level 9.0, Aspartate Amino Transf (AST/SGOT) 19, Alanine Aminotransferase (ALT/SGPT) 26, Alkaline Phosphatase 71, Total Bilirubin 0.8 #, Total Protein 6.6, Albumin 3.2 Microbiology Microbiology 04/22/19 Blood Culture - Preliminary, Resulted No Growth after 72 hours. All specime... 04/22/19 Blood Culture - Preliminary, Resulted No Growth after 72 hours. All specime... 04/23/19 Respiratory Virus Panel (PCR) ([facility]) - Final, Complete 04/23/19 Gram Stain - Final, Complete 04/23/19 Sputum Culture - Final, Complete 04/23/19 Urine Culture - Final, Complete JANELLE SAMANO MD Apr 26, 2019 11:10
[2019-04-26] MEDS: MONTELUKAST 10 MG TAB PO SCH (20:09)
[2019-04-26 22:00] VITALS: BP 155/72
[2019-04-27] MEDS: IPRATROPIUM 0.5MG/ALBUTEROL 2.5MG INH SOL UD 3ML (DUONEB)(J7620) NEB SCH ×6 (03:45→23:56)
[2019-04-27] MEDS: methylPREDNISolone INJ 125 MG/2 ML VIAL (J2930) IV SCH ×3 (05:02→17:22)
[2019-04-27 06:00] VITALS: BP 142/65
[2019-04-27] MEDS: amLODIPine 10 MG TAB PO SCH (08:16)
[2019-04-27] MEDS: POTASSIUM CHLORIDE 10 MEQ SR TABLET PO SCH (08:16)
[2019-04-27] MEDS: ENOXAPARIN 40 MG/0.4 ML SYRINGE (J1650) SC SCH (08:17)
[2019-04-27] MEDS: SERTRALINE HCL 25 MG TABLET PO SCH (08:17)
[2019-04-27] MEDS: FAMOTIDINE IV BAG 20 MG in APPROPRIATE DILUENT 1 EA IV SCH ×2 (11:14→23:17)
[2019-04-27 14:00] VITALS: BP 136/63
--- NOTE | 2019-04-27 19:49 | IPNPDOC ---
Date Seen The patient was seen on 04/27/19. Progress Note SUBJECTIVE: Patient reported feeling slightly better but still very SOB. Face is flushed but appear comfortable however. Saturating well on 2L NC. OBJECTIVE PHYSICAL EXAMINATION: VITAL SIGNS: Please see below. General: No acute distress, Alert Eyes: Normal sclera, EOMI, AMA HENT: Atraumatic, neck supple, moist mucous membranes Cardiovascular: Tachycardic, normal rhythm. Pulmonary: Clear to auscultation b/l, no wheezing GI: Soft, nontender, nondistended Skin: Warm and dry Neuro: CN grossly intact. No focal deficits. Psych: oriented x 3 LABORATORY DATA, IMAGING STUDIES, MICROBIOLOGY: Please see below. DVT prophylaxis ordered?: Lovenox ASSESSMENT AND PLAN: 1. Asthma exacerbation - c/w nebs, steroids, and O2 support as needed. - Since patient is improving, will taper steroids to 60 q8 at this time (from 80 q6). - Monitor respiratory status. 2. Hypokalemia - monitor and replete as needed. 3. Allergic pneumonitis - chronic insterstitial lung disease. Poor pulmonary function at baseline. - Recurrent hospitalizations. - c/w nebs treatment and steroids. taper as tolerated. VS, I&O, 24H, [facility] Vital Signs/I&O Vital Signs Date Time Temp Pulse Resp B/P (MAP) Pulse Ox O2 Delivery O2 Flow Rate FiO2 04/27/19 14:00 97.3 98 21 136/63 (87) 91 04/23/19 06:00 2.0 04/22/19 18:51 Room Air I&O- Last 24 Hours up to 6 AM 04/27/19 06:00 Intake Total 1246 ml Output Total 1300 ml Balance -54 ml Laboratory Data Microbiology Microbiology 04/22/19 Blood Culture - Final, Complete NO GROWTH AFTER 5 DAYS 04/22/19 Blood Culture - Final, Complete NO GROWTH AFTER 5 DAYS 04/23/19 Respiratory Virus Panel (PCR) ([facility]) - Final, Complete 04/23/19 Gram Stain - Final, Complete 04/23/19 Sputum Culture - Final, Complete 04/23/19 Urine Culture - Final, Complete LILIA BECKHAM MD Apr 27, 2019 19:49
[2019-04-27] MEDS: MONTELUKAST 10 MG TAB PO SCH (21:15)
[2019-04-27 22:00] VITALS: BP 135/66
[2019-04-28] MEDS: methylPREDNISolone INJ 125 MG/2 ML VIAL (J2930) IV SCH ×3 (00:05→17:00)
[2019-04-28 04:00] VITALS: BP 134/63
[2019-04-28] MEDS: IPRATROPIUM 0.5MG/ALBUTEROL 2.5MG INH SOL UD 3ML (DUONEB)(J7620) NEB SCH ×5 (04:09→19:57)
[2019-04-28 06:00] VITALS: BP 134/63
[2019-04-28 06:16] LABS: BASO % 0.2 % (0.0-1.0); HEMATOCRIT 31.7 % (36.0-47.0); HEMOGLOBIN 10.2 g/dl (12.0-15.5); LYMPH # 0.6 10^3/uL (1.5-4.5); LYMPH % 4.5 % (24.0-44.0); MEAN CORPUSCULAR HEMOGLOBIN 26.4 pg (27.0-33.0); MEAN CORPUSCULAR HGB CONC 32.2 g/dl (32.0-36.5); MEAN CORPUSCULAR VOLUME 82.1 fl (80.0-96.0); MONO # 0.2 10^3/uL (0.0-0.8); MONO % 1.7 % (0.0-5.0); NEUTROPHILS # 11.7 10^3/uL (1.8-7.7); NEUTROPHILS % 90.9 % (36.0-66.0); PLATELET COUNT, AUTOMATED 327 10^3/uL (150-450); RED BLOOD COUNT 3.86 10^6/uL (4.00-5.40); WHITE BLOOD COUNT 12.9 10^3/uL (4.0-10.0)
[2019-04-28 06:40] LABS: BLOOD UREA NITROGEN 22 MG/DL (7-18); CALCIUM LEVEL 8.3 MG/DL (8.8-10.2); CARBON DIOXIDE LEVEL 29 MEQ/L (21-32); CHLORIDE LEVEL 103 MEQ/L (98-107); CREATININE FOR GFR 0.81 MG/DL (0.55-1.30); GLOMERULAR FILTRATION RATE > 60.0 (>45); GLUCOSE, FASTING 159 MG/DL (70-100); POTASSIUM SERUM 3.7 MEQ/L (3.5-5.1); SODIUM LEVEL 139 MEQ/L (136-145)
[2019-04-28] MEDS: SERTRALINE HCL 25 MG TABLET PO SCH (08:28)
[2019-04-28] MEDS: POTASSIUM CHLORIDE 10 MEQ SR TABLET PO SCH (08:28)
[2019-04-28] MEDS: ENOXAPARIN 40 MG/0.4 ML SYRINGE (J1650) SC SCH (08:28)
[2019-04-28] MEDS: amLODIPine 10 MG TAB PO SCH (08:29)
[2019-04-28] MEDS: FAMOTIDINE IV BAG 20 MG in APPROPRIATE DILUENT 1 EA IV SCH (11:08)
[2019-04-28 14:00] VITALS: BP 141/94
--- NOTE | 2019-04-28 19:01 | IPNPDOC ---
Date Seen The patient was seen on 04/28/19. Progress Note SUBJECTIVE: Patient appeared comfortable and states that she feels better, possibly like to go home tomorrow. Saturating well on 2L NC. No acute events reported overnight. OBJECTIVE PHYSICAL EXAMINATION: VITAL SIGNS: Please see below. General: No acute distress, Alert Eyes: Normal sclera, EOMI, AMA HENT: Atraumatic, neck supple, moist mucous membranes Cardiovascular: Tachycardic, Pulmonary: Coarse breath sounds b/l. GI: Soft, nontender, nondistended Skin: Warm and dry Neuro: CN grossly intact. No focal deficits. Psych: oriented x 3 LABORATORY DATA, IMAGING STUDIES, MICROBIOLOGY: Please see below. DVT prophylaxis ordered?: Lovenox ASSESSMENT AND PLAN: 1. Asthma exacerbation - c/w nebs, steroids, and O2 support as needed. - clinically improving, taper steroids. - Monitor respiratory status. 2. Hypokalemia - monitor and replete as needed. 3. Allergic pneumonitis - chronic interstitial lung disease. Poor pulmonary function at baseline. - Recurrent hospitalizations. - c/w nebs treatment and steroids. taper as tolerated. VS, I&O, 24H, [facility] Vital Signs/I&O Vital Signs Date Time Temp Pulse Resp B/P (MAP) Pulse Ox O2 Delivery O2 Flow Rate FiO2 04/28/19 14:00 97.5 104 21 141/94 (110) 96 04/23/19 06:00 2.0 04/22/19 18:51 Room Air I&O- Last 24 Hours up to 6 AM 04/28/19 06:00 Intake Total 180 ml Output Total 200 ml Balance -20 ml Laboratory Data 24H LABS Laboratory Tests 2 04/28/19 05:50: Immature Granulocyte % (Auto) 2.7, White Blood Count 12.9H, Red Blood Count 3.86L, Hemoglobin 10.2L, Hematocrit 31.7L, Mean Corpuscular Volume 82.1, Mean Corpuscular Hemoglobin 26.4L, Mean Corpuscular Hemoglobin Concent 32.2, Red Cell Distribution Width 16.5H, Platelet Count 327, Neutrophils (%) (Auto) 90.9H, Lymphocytes (%) (Auto) 4.5L, Monocytes (%) (Auto) 1.7, Eosinophils (%) (Auto) 0.0, Basophils (%) (Auto) 0.2, Neutrophils # (Auto) 11.7H, Lymphocytes # (Auto) 0.6L, Monocytes # (Auto) 0.2, Eosinophils # (Auto) 0.0, Basophils # (Auto) 0.0, Nucleated Red Blood Cells % (auto) 0.2H, Anion Gap 7L, Glomerular Filtration Rate > 60.0, Blood Urea Nitrogen 22H, Creatinine 0.81, Sodium Level 139, Potassium Level 3.7, Chloride Level 103, Carbon Dioxide Level 29, Calcium Level 8.3L CBC/BMP Laboratory Tests 04/28/19 05:50 Red Blood Count 3.86 L, Mean Corpuscular Volume 82.1, Mean Corpuscular Hemoglobin 26.4 L, Mean Corpuscular Hemoglobin Concent 32.2, Red Cell D istribution Width 16.5 H, Neutrophils (%) (Auto) 90.9 H, Lymphocytes (%) (Auto) 4.5 L, Monocytes (%) (Auto) 1.7, Eosinophils (%) (Auto) 0.0, Basophils (%) (Auto) 0.2, Neutrophils # (Auto) 11.7 H, Lymphocytes # (Auto) 0.6 L, Monocytes # (Auto) 0.2, Eosinophils # (Auto) 0.0, Basophils # (Auto) 0.0, Calcium Level 8.3 L Microbiology Microbiology 04/22/19 Blood Culture - Final, Complete NO GROWTH AFTER 5 DAYS 04/22/19 Blood Culture - Final, Complete NO GROWTH AFTER 5 DAYS 04/23/19 Respiratory Virus Panel (PCR) ([facility]) - Final, Complete 04/23/19 Gram Stain - Final, Complete 04/23/19 Sputum Culture - Final, Complete 04/23/19 Urine Culture - Final, Complete LILIA BECKHAM MD Apr 28, 2019 19:01
[2019-04-28] MEDS: MONTELUKAST 10 MG TAB PO SCH (20:50)
[2019-04-28 22:00] VITALS: BP 149/76
[2019-04-29] MEDS: FAMOTIDINE IV BAG 20 MG in APPROPRIATE DILUENT 1 EA IV SCH ×2 (00:01→10:53)
[2019-04-29] MEDS: IPRATROPIUM 0.5MG/ALBUTEROL 2.5MG INH SOL UD 3ML (DUONEB)(J7620) NEB SCH ×4 (00:45→11:43)
[2019-04-29] MEDS ORDERED: methylPREDNISolone INJ 40 MG/1 ML VIAL (J2920) IV SCH (05:00)
[2019-04-29 06:00] VITALS: BP 145/65
[2019-04-29 06:13] LABS: BASO % 0.1 % (0.0-1.0); HEMATOCRIT 32.4 % (36.0-47.0); HEMOGLOBIN 10.4 g/dl (12.0-15.5); LYMPH # 0.6 10^3/uL (1.5-4.5); LYMPH % 3.3 % (24.0-44.0); MEAN CORPUSCULAR HEMOGLOBIN 25.8 pg (27.0-33.0); MEAN CORPUSCULAR HGB CONC 32.1 g/dl (32.0-36.5); MEAN CORPUSCULAR VOLUME 80.4 fl (80.0-96.0); MONO # 0.5 10^3/uL (0.0-0.8); NEUTROPHILS # 15.1 10^3/uL (1.8-7.7); NEUTROPHILS % 89.6 % (36.0-66.0); PLATELET COUNT, AUTOMATED 337 10^3/uL (150-450); RED BLOOD COUNT 4.03 10^6/uL (4.00-5.40); WHITE BLOOD COUNT 16.9 10^3/uL (4.0-10.0)
[2019-04-29 06:43] LABS: BLOOD UREA NITROGEN 21 MG/DL (7-18); CARBON DIOXIDE LEVEL 28 MEQ/L (21-32); CHLORIDE LEVEL 104 MEQ/L (98-107); CREATININE FOR GFR 0.71 MG/DL (0.55-1.30); GLOMERULAR FILTRATION RATE > 60.0 (>45); GLUCOSE, FASTING 144 MG/DL (70-100); POTASSIUM SERUM 3.8 MEQ/L (3.5-5.1); SODIUM LEVEL 139 MEQ/L (136-145)
[2019-04-29 08:49] VITALS: BP 134/81
[2019-04-29] MEDS: amLODIPine 10 MG TAB PO SCH (08:49)
[2019-04-29] MEDS: SERTRALINE HCL 25 MG TABLET PO SCH (08:49)
[2019-04-29] MEDS: POTASSIUM CHLORIDE 10 MEQ SR TABLET PO SCH (08:49)
[2019-04-29] MEDS: ENOXAPARIN 40 MG/0.4 ML SYRINGE (J1650) SC SCH (08:49)
[2019-04-29] MEDS ORDERED: PRED20TA PO (11:29)
--- NOTE | 2019-04-29 11:39 | DS.PDOC ---
Discharge Summary General Date of Admission Apr 22, 2019 at 22:02 Date of Discharge 04/29/19 Discharge Summary PROCEDURES PERFORMED DURING STAY: [None]. ADMITTING DIAGNOSES: 1. Asthma exacerbation 2. HTN 3. Hypothyroidism 4. Hypokalemia 5. Suspected allergic pneumonitis DISCHARGE DIAGNOSES: 1. Asthma exacerbation 2. HTN 3. Hypothyroidism 4. Hypokalemia 5. Suspected allergic pneumonitis COMPLICATIONS/CHIEF COMPLAINT: Copd Exacerbation. HISTORY OF PRESENT ILLNESS: "This is a 63 yo f with hx of asthma who was recently dc from here and was treated for pna and cellulitis of the lower extremities, who presented to the ed for lower extremity swelling for the past 2 days. Patient also has been having sob with some wheezing and cough without sputum production. Patient denied fever , chills, chest pain, aqbd pain or weakness." HOSPITAL COURSE: Patient was treated with high dose steroids and nebulizers with improvement in symptoms. Patient reported that she breathes much better now and requested to go home. Denying any complaints, saturating well. 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 DISCHARGE MEDICATIONS: Please see below. ALLERGIES: Please see below. PHYSICAL EXAMINATION ON DISCHARGE: VITAL SIGNS: Please see below. General: No acute distress, Alert Eyes: Normal sclera, EOMI, AMA HENT: Atraumatic, neck supple, moist mucous membranes Cardiovascular: Regular rate Pulmonary: Mild wheeze b/l. GI: Soft, nontender, nondistended Skin: Warm and dry Neuro: CN grossly intact. No focal deficits. Psych: oriented x 3 LABORATORY DATA: Please see below. IMAGING: CXR- Portable chest, 11:51 a.m., single AP view with the patient sitting: Comparison is 04/22/2019. There is interstitial coarsening, unchanged. There are no focal infiltrates or pleural effusions. Cardiac size is normal. The edwin, mediastinum, skeletal structures are unremarkable. Impression: There is no interval change. ACTIVITY: [As tolerated]. DIET: Regular DISCHARGE PLAN: complete course of PO prednisone f/u with PMD and pulmonology DISPOSITION: home. DISCHARGE INSTRUCTIONS: complete course of PO prednisone f/u with PMD and pulmonology ITEMS TO FOLLOWUP ON ON OUTPATIENT: None DISCHARGE CONDITION: [Stable]. TIME SPENT ON DISCHARGE: 33 minutes. Vital Signs/I&Os Vital Signs Date Time Temp Pulse Resp B/P (MAP) Pulse Ox O2 Delivery O2 Flow Rate FiO2 04/29/19 08:49 82 134/81 04/29/19 06:00 97.4 20 93 04/23/19 06:00 2.0 I&O- Last 24 Hours up to 6 AM 04/29/19 06:00 Intake Total 648 ml Output Total 100 ml Balance 548 ml Laboratory Data Labs 24H Laboratory Tests 2 04/29/19 05:49: Immature Granulocyte % (Auto) 4.0H, White Blood Count 16.9H, Red Blood Count 4.03, Hemoglobin 10.4L, Hematocrit 32.4L, Mean Corpuscular Volume 80.4, Mean Corpuscular Hemoglobin 25.8L, Mean Corpuscular Hemoglobin Concent 32.1, Red Cell Distribution Width 16.5H, Platelet Count 337, Neutrophils (%) (Auto) 89.6H, Lymphocytes (%) (Auto) 3.3L, Monocytes (%) (Auto) 3.0, Eosinophils (%) (Auto) 0.0, Basophils (%) (Auto) 0.1, Neutrophils # (Auto) 15.1H, Lymphocytes # (Auto) 0.6L, Monocytes # (Auto) 0.5, Eosinophils # (Auto) 0.0, Basophils # (Auto) 0.0, Nucleated Red Blood Cells % (auto) 0.2H, Anion Gap 7L, Glomerular Filtration Rat e > 60.0, Blood Urea Nitrogen 21H, Creatinine 0.71, Sodium Level 139, Potassium Level 3.8, Chloride Level 104, Carbon Dioxide Level 28, Calcium Level 8.0L CBC/BMP Laboratory Tests 04/29/19 05:49 Red Blood Count 4.03, Mean Corpuscular Volume 80.4, Mean Corpuscular Hemoglobin 25.8 L, Mean Corpuscular Hemoglobin Concent 32.1, Red Cell Distribution Width 16.5 H, Neutrophils (%) (Auto) 89.6 H, Lymphocytes (%) (Auto) 3.3 L, Monocytes (%) (Auto) 3.0, Eosinophils (%) (Auto) 0.0, Basophils (%) (Auto) 0.1, Neutrophils # (Auto) 15.1 H, Lymphocytes # (Auto) 0.6 L, Monocytes # (Auto) 0.5, Eosinophils # (Auto) 0.0, Basophils # (Auto) 0.0, Calcium Level 8.0 L Microbiology Microbiology 04/22/19 Blood Culture - Final, Complete NO GROWTH AFTER 5 DAYS 04/22/19 Blood Culture - Final, Complete NO GROWTH AFTER 5 DAYS 04/23/19 Respiratory Virus Panel (PCR) ([facility]) - Final, Complete 04/23/19 Gram Stain - Final, Complete 04/23/19 Sputum Culture - Final, Complete 04/23/19 Urine Culture - Final, Complete Discharge Medications Scheduled Amlodipine Besylate (Norvasc) 10 Mg Tablet, 10 MG PO DAILY, (Reported) Aripiprazole (Aripiprazole) 10 Mg Tablet, 5 MG PO QHS, (Reported) Fluticasone/Vilanterol (Breo Ellipta 200-25 Mcg INH) 1 Inh Inh, 1 PUFF INH DAILY, (Reported) Hydrochlorothiazide (Hydrochlorothiazide) 25 Mg Tablet, 25 MG PO DAILY, (Reported) Levothyroxine Sodium (Synthroid) 75 Mcg Tablet, 75 MCG PO DAILY, (Reported) Montelukast Sodium (Montelukast Sodium) 10 Mg Tablet, 10 MG PO QHS, (Reported) Potassium Chloride (Potassium Chloride) 10 Meq Capsule.er, 10 MEQ PO DAILY, (Reported) Prednisone (Prednisone) 20 Mg Tablet, 20 MG PO DAILY Sertraline HCl (Sertraline HCl) 25 Mg Tablet, 25 MG PO DAILY, (Reported) Scheduled PRN Albuterol Sulfate (Proair Hfa) 8.5 Gm Hfa.aer.ad, 2 PUFF INH Q4H PRN for WHEEZING, (Reported) Allergies Coded Allergies: No Known Allergies (Unverified , 07/30/17) LILIA BECKHAM MD Apr 29, 2019 11:39
== END 2019-04-29 14:18 | disposition home or self-care (01) | DRG 141 ==
LOC: M ED 17:28 → M ED INP 22:02 → M MSPAV 04-23 00:20
PROVIDERS: ADMIT Internal Medicine; ATTEND Student in an Organized Health Care Education/Training Program
DX: J45.901 Unspecified asthma with (acute) exacerbation (principal); J67.9 Hypersensitivity pneumonitis due to unspecified organic dust; I10 Essential (primary) hypertension; E03.9 Hypothyroidism, unspecified; E87.6 Hypokalemia; Z79.899 Other long term (current) drug therapy; D72.829 Elevated white blood cell count, unspecified

== ENCOUNTER → 2019-06-22 | Outpatient (REF) | payer OTHER ==
[~2019-06-22] MED LIST changes: +PROAAER10 INH; +SERT25TA21 PO; -SERT25TA88 PO
[2019-06-22 17:42] LABS: BASO # 0.1 10^3/uL (0.0-0.2); BASO % 0.6 % (0.0-1.0); EOS # 0.2 10^3/uL (0.0-0.5); EOS % 2.1 % (0.0-3.0); HEMATOCRIT 36.3 % (36.0-47.0); HEMOGLOBIN 11.1 g/dl (12.0-15.5); LYMPH % 10.5 % (24.0-44.0); MEAN CORPUSCULAR HEMOGLOBIN 25.6 pg (27.0-33.0); MEAN CORPUSCULAR HGB CONC 30.6 g/dl (32.0-36.5); MEAN CORPUSCULAR VOLUME 83.6 fl (80.0-96.0); MONO # 0.5 10^3/uL (0.0-0.8); MONO % 5.6 % (0.0-5.0); NEUTROPHILS # 7.3 10^3/uL (1.5-8.5); NEUTROPHILS % 80.8 % (36.0-66.0); PLATELET COUNT, AUTOMATED 404 10^3/uL (150-450); RED BLOOD COUNT 4.34 10^6/uL (4.00-5.40); WHITE BLOOD COUNT 9.1 10^3/uL (4.0-10.0)
[2019-06-22 17:44] LABS: ALBUMIN 3.1 GM/DL (3.2-5.2); ALT/SGPT 16 U/L (12-78); BILIRUBIN,TOTAL 0.8 MG/DL (0.2-1.0); BLOOD UREA NITROGEN 4 MG/DL (7-18); CALCIUM LEVEL 9.2 MG/DL (8.8-10.2); CARBON DIOXIDE LEVEL 31 MEQ/L (21-32); CHLORIDE LEVEL 101 MEQ/L (98-107); CHOLESTEROL LEVEL 189 MG/DL (<200); CHOLESTEROL RISK RATIO 3.375 (<5); GLOMERULAR FILTRATION RATE > 60.0 (>45); GLUCOSE, FASTING 91 MG/DL (70-100); HDL CHOLESTEROL 56 MG/DL (>40); LDL CHOLESTEROL 120 MG/DL (<100); MAGNESIUM LEVEL 2.5 MG/DL (1.8-2.4); NON-HDL-C 133 MG/DL; POTASSIUM SERUM 4.2 MEQ/L (3.5-5.1); SODIUM LEVEL 137 MEQ/L (136-145); TOTAL PROTEIN 6.2 GM/DL (6.4-8.2); TRIGLYCERIDES LEVEL 67 MG/DL (<150)
== END ==
LOC: M LAB REF 16:43
PROVIDERS: ATTEND Nurse Practitioner Family
DX: I10 Essential (primary) hypertension (principal)

== ENCOUNTER → 2019-06-29 | Outpatient (CLI) | payer OTHER ==
--- NOTE | 2019-06-30 07:48 | REP ---
Clinical: Wheezing Technique: PA and lateral. Comparison: 04/23/2019 Findings: Calcified lymph nodes and calcified granuloma in the left lower lung consistent with prior granulomas disease. Cardiac silhouette is normal. The lung nguyen are relatively clear without focal consolidation or effusion. Skeletal structures intact. Impression: Prior granulomas disease. No focal consolidation or effusion. Electronically Signed by Brenton Shukla MD 06/30/2019 07:39 A
== END ==
LOC: M RAD 16:43
PROVIDERS: ATTEND Nurse Practitioner Family
DX: R09.89 Other specified symptoms and signs involving the circulatory and respiratory systems (principal)

== ENCOUNTER 2019-09-27 07:29 | Day surgery (SDC) | payer OTHER ==
[~2019-09-27] VITALS: Ht 142.2 cm; Wt 91.1 kg
[~2019-09-27 07:29] MED LIST changes: +LIDOCAINE 2% INJ 100 MG/5 ML SDV (FOR ANES.) As Ordered ONE; +propofoL 200 MG/20 ML VIAL As Ordered ONE
[2019-09-27] MEDS ORDERED: ALBUTEROL SULFATE 2.5 MG/0.5 ML INH NEB SOLN As Ordered ONE (08:12)
[2019-09-27] MEDS ORDERED: NS 1,000 ML IV ONE (08:15)
[2019-09-27] MEDS ORDERED: ALBUTEROL SULFATE 2.5 MG/0.5 ML INH NEB SOLN INH ONE (08:15)
--- NOTE | 2019-09-27 09:17 | ROOR ---
Patient Name: Tamara Sorenson Procedure Date: 09/27/2019 8:50 AM Date of : 1955 Age: 63 Room: [facility] Gender: Female Note Status: Finalized Procedure: Colonoscopy Indications: Screening for colorectal malignant neoplasm Providers: Jan STEPHENS MD Referring MD: Zee MEJIA NP Requesting Provider: Medicines: Monitored Anesthesia Care Complications: No immediate complications. Procedure: Pre-Anesthesia Assessment: - The heart rate, respiratory rate, oxygen saturations, blood pressure, adequacy of pulmonary ventilation, and response to care were monitored throughout the procedure. The Colonoscope was introduced through the anus and advanced to the terminal ileum, with identification of the appendiceal orifice and IC valve. The colonoscopy was performed without difficulty. The patient tolerated the procedure well. The quality of the bowel preparation was good. Findings: The perianal and digital rectal examinations were normal. Six sessile polyps were found in the recto-sigmoid colon, descending colon, splenic flexure and ascending colon. The polyps were 5 to 8 mm in size. These polyps were removed with a cold snare. Resection and retrieval were complete. Mild sigmoid diverticulosis and small internal hemorrhoids. Retroflexion in the right colon was performed. Impression: - Six 5 to 8 mm polyps at the recto-sigmoid colon, in the descending colon, at the splenic flexure and in the ascending colon, removed with a cold snare. Resected and retrieved. - Mild sigmoid diverticulosis and small internal hemorrhoids. - The exam was otherwise normal to the cecum. Recommendation: - Repeat colonoscopy in 3 years for surveillance. - No ibuprofen, naproxen, or other non-steroidal anti-inflammatory drugs for 10 days after polyp removal. Jan Stephens MD Jan STEPHENS MD 09/27/2019 9:16:36 AM Electronically signed by Jan STEPHENS MD Number of Addenda: 0 Note Initiated On: 09/27/2019 8:50 AM Estimated Blood Loss: Estimated blood loss: none.
[2019-09-27 09:51] VITALS: BP 127/59
== END 2019-09-27 09:52 | disposition home or self-care (01) ==
LOC: M OPP 07:29
PROVIDERS: ATTEND Internal Medicine Gastroenterology
DX: Z12.11 Encounter for screening for malignant neoplasm of colon (principal); K63.5 Polyp of colon; D12.2 Benign neoplasm of ascending colon; D12.3 Benign neoplasm of transverse colon; K64.8 Other hemorrhoids; K57.30 Diverticulosis of large intestine without perforation or abscess without bleeding; E73.9 Lactose intolerance, unspecified; Z91.018 Allergy to other foods; Z79.899 Other long term (current) drug therapy

== ENCOUNTER 2019-11-18 20:49 | Emergency (ER) | payer BC, MEDICAID, MEDICARE, OTHER ==
[~2019-11-18] VITALS: Ht 142.2 cm; Wt 92.3 kg
[~2019-11-18 20:49] MED LIST changes: -LIDOCAINE 2% INJ 100 MG/5 ML SDV (FOR ANES.) As Ordered ONE; -MONT10TA2 PO; +MONT10TA4 PO; -propofoL 200 MG/20 ML VIAL As Ordered ONE
[2019-11-18] MEDS ORDERED: methylPREDNISolone INJ 125 MG/2 ML VIAL (J2930) IV ONE (21:00)
[2019-11-18] MEDS ORDERED: ASPIRIN 81 MG CHEW TABLET PO ONE (21:00)
[2019-11-18] MEDS: NS 1,000 ML IV SCH ×2 (21:14→23:45)
[2019-11-18] MEDS: COMBIVENT RESPIMAT 100-20MCG INHALER 4GM INH PRN ×3 (21:20→22:40)
[2019-11-18 21:21] LABS: VENOUS BASE EXCESS 4.5 (-2.0-2.0); VENOUS HCO3 28.9 MEQ/L (23.0-27.0); VENOUS O2 SATURATION 97.8 % (60.0-80.0); VENOUS PARTIAL PRESSURE CO2 41.9 mmHg (38.0-50.0); VENOUS PARTIAL PRESSURE O2 95.7 mmHg (30.0-50.0); VENOUS PH 7.456 UNITS (7.330-7.430); VENOUS STANDARD HCO3 28.6 MEQ/L; VENOUS TOTAL CO2 30.2 MEQ/L (24.0-28.0)
[2019-11-18 21:24] LABS: BASO % 0.3 % (0.0-1.0); EOS # 0.1 10^3/uL (0.0-0.5); EOS % 0.7 % (0.0-3.0); HEMATOCRIT 36.3 % (36.0-47.0); HEMOGLOBIN 11.4 g/dl (12.0-15.5); LYMPH # 1.4 10^3/uL (1.5-5.0); LYMPH % 10.8 % (24.0-44.0); MEAN CORPUSCULAR HEMOGLOBIN 23.8 pg (27.0-33.0); MEAN CORPUSCULAR HGB CONC 31.4 g/dl (32.0-36.5); MEAN CORPUSCULAR VOLUME 75.8 fl (80.0-96.0); MONO # 1.1 10^3/uL (0.0-0.8); MONO % 8.3 % (0.0-5.0); NEUTROPHILS # 10.2 10^3/uL (1.5-8.5); NEUTROPHILS % 79.4 % (36.0-66.0); PLATELET COUNT, AUTOMATED 405 10^3/uL (150-450); RED BLOOD COUNT 4.79 10^6/uL (4.00-5.40); WHITE BLOOD COUNT 12.8 10^3/uL (4.0-10.0)
[2019-11-18 21:35] LABS: INR 1.04; PROTHROMBIN TIME 13.4 SECONDS (11.8-14.0)
[2019-11-18 21:46] LABS: ALBUMIN 3.3 GM/DL (3.2-5.2); ALT/SGPT 23 U/L (12-78); BILIRUBIN,DIRECT 0.5 MG/DL (0.0-0.2); BILIRUBIN,TOTAL 1.3 MG/DL (0.2-1.0); BLOOD UREA NITROGEN 8 MG/DL (7-18); CALCIUM LEVEL 8.6 MG/DL (8.8-10.2); CARBON DIOXIDE LEVEL 31 MEQ/L (21-32); CHLORIDE LEVEL 97 MEQ/L (98-107); CK-MB VALUE MASS 1.2 NG/ML (<3.6); CPK CREATINE PHOSPHOKINASE 137 U/L (26-192); GLOMERULAR FILTRATION RATE > 60.0 (>45); GLUCOSE, FASTING 170 MG/DL (70-100); MB/CK RELATIVE INDEX 0.88 (< OR =4); POTASSIUM SERUM 3.1 MEQ/L (3.5-5.1); SODIUM LEVEL 135 MEQ/L (136-145); TOTAL PROTEIN 7.2 GM/DL (6.4-8.2); TROPONIN I < 0.02 NG/ML (< 0.10)
[2019-11-18] MEDS ORDERED: diphenhydrAMINE INJ 50MG/ML VIAL (J1200) IV STA (23:28)
[2019-11-18] MEDS ORDERED: FAMOTIDINE INJ 20MG/2ML VIAL (S0028) IVP ONE (23:30)
[2019-11-18 23:31] VITALS: BP 132/63
[2019-11-18] MEDS ORDERED: PRED10TA2 PO (23:47)
[2019-11-18] MEDS ORDERED: BENA25CA4 PO (23:47)
--- NOTE | 2019-11-19 08:51 | REP ---
Clinical: Cough and dyspnea. Comparison: 06/29/2019. Findings: Current examination is limited by poor inspiratory effort, and underpenetration. Rounded nodule in the left lower lung zone is again noted and stable. Subtle left lower lobe infiltrate cannot be excluded and should be correlated with auscultation. No definite effusion. No pneumothorax. Mediastinum and cardiac silhouette stable within normal limits. Double structures are intact. Impression: Cannot exclude subtle superimposed left lower lobe infiltrate. Electronically Signed by Brenton Shukla MD 11/19/2019 08:43 A
--- NOTE | 2019-11-20 06:37 | ECGEPIP ---
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
--- NOTE | 2019-11-20 08:39 | ED PDOC ---
Post-Departure Follow-Up adrian grace faxed formal report of cxr - for fu josiahg Annette Best MD Nov 20, 2019 08:39
== END 2019-11-19 00:22 | disposition home or self-care (01) ==
LOC: M ED 20:49
DX: R06.02 Shortness of breath (principal); T36.95XA Adverse effect of unspecified systemic antibiotic, initial encounter; Y92.9 Unspecified place or not applicable; Y93.9 Activity, unspecified; I51.9 Heart disease, unspecified; J98.4 Other disorders of lung; E07.9 Disorder of thyroid, unspecified; E73.9 Lactose intolerance, unspecified; Z82.49 Family history of ischemic heart disease and other diseases of the circulatory system; Z79.899 Other long term (current) drug therapy; Z91.018 Allergy to other foods
CPT/HCPCS: 71045; 80048; 80076; 82550; 82553; 82803; 85025; 85610; 93005; 93041; 96361; 96374; 96375; 99285; J1200; J2930

== ENCOUNTER → 2020-01-05 | Outpatient (CLI) | payer OTHER ==
[~2020-01-05] MED LIST changes: +BENA25CA4 PO; +PRED10TA2 PO
[2020-01-05 13:21] LABS: BASO % 0.2 % (0.0-1.0); EOS % 0.1 % (0.0-3.0); HEMATOCRIT 41.4 % (36.0-47.0); HEMOGLOBIN 12.8 g/dl (12.0-15.5); LYMPH # 2.2 10^3/uL (1.5-5.0); LYMPH % 11.4 % (24.0-44.0); MEAN CORPUSCULAR HEMOGLOBIN 24.2 pg (27.0-33.0); MEAN CORPUSCULAR HGB CONC 30.9 g/dl (32.0-36.5); MEAN CORPUSCULAR VOLUME 78.1 fl (80.0-96.0); MONO # 0.7 10^3/uL (0.0-0.8); MONO % 3.6 % (0.0-5.0); NEUTROPHILS # 16.3 10^3/uL (1.5-8.5); NEUTROPHILS % 83.8 % (36.0-66.0); PLATELET COUNT, AUTOMATED 408 10^3/uL (150-450); WHITE BLOOD COUNT 19.4 10^3/uL (4.0-10.0)
[2020-01-05 14:00] LABS: BLOOD UREA NITROGEN 8 MG/DL (7-18); CALCIUM LEVEL 9.3 MG/DL (8.8-10.2); CARBON DIOXIDE LEVEL 32 MEQ/L (21-32); CHLORIDE LEVEL 101 MEQ/L (98-107); CREATININE FOR GFR 0.69 MG/DL (0.55-1.30); GLOMERULAR FILTRATION RATE > 60.0 (>45); GLUCOSE, FASTING 79 MG/DL (70-100); POTASSIUM SERUM 3.8 MEQ/L (3.5-5.1); SODIUM LEVEL 138 MEQ/L (136-145)
[2020-01-05 14:01] LABS: ALBUMIN 3.6 GM/DL (3.2-5.2); ALT/SGPT 24 U/L (12-78); BILIRUBIN,TOTAL 0.6 MG/DL (0.2-1.0); CHOLESTEROL LEVEL 251 MG/DL (<200); CHOLESTEROL RISK RATIO 3.585 (<5); FREE T4 1.41 NG/DL (0.76-1.46); HDL CHOLESTEROL 70 MG/DL (>40); LDL CHOLESTEROL 161 MG/DL (<100); NON-HDL-C 181 MG/DL; TOTAL PROTEIN 7.4 GM/DL (6.4-8.2); TRIGLYCERIDES LEVEL 98 MG/DL (<150)
[2020-01-05 14:19] LABS: TOTAL 25(OH) VITAMIN D 28.5 NG/ML (30.0-100.0)
[2020-01-05 16:11] LABS: HEMOGLOBIN A1c 6.1 %
== END ==
LOC: M LAB 12:40
PROVIDERS: ATTEND Nurse Practitioner Family
DX: R60.0 Localized edema (principal); E87.6 Hypokalemia; R73.03 Prediabetes; Z13.9 Encounter for screening, unspecified; R06.01 Orthopnea; M54.9 Dorsalgia, unspecified; E03.8 Other specified hypothyroidism; F34.1 Dysthymic disorder; R94.2 Abnormal results of pulmonary function studies; I10 Essential (primary) hypertension

== ENCOUNTER → 2020-02-14 | Outpatient (REF) | payer MEDICARE, OTHER ==
[~2020-02-14] MED LIST changes: +ACET1TAB55 PO; +ATOR1TAB21 PO; +FURO20TA2 PO; +HYDR-3490 PO; -HYDR25TAB PO; +MONT10TA10 PO; -MONT10TA4 PO; +SULF1TAB93 PO; +SYNT88TA2 PO; +VITMTA PO
[2020-02-14 13:21] LABS: BASO % 0.1 % (0.0-1.0); EOS % 0.1 % (0.0-3.0); HEMATOCRIT 39.9 % (36.0-47.0); HEMOGLOBIN 12.3 g/dl (12.0-15.5); LYMPH # 1.1 10^3/uL (1.5-5.0); LYMPH % 6.5 % (24.0-44.0); MEAN CORPUSCULAR HEMOGLOBIN 24.3 pg (27.0-33.0); MEAN CORPUSCULAR HGB CONC 30.8 g/dl (32.0-36.5); MEAN CORPUSCULAR VOLUME 78.9 fl (80.0-96.0); MONO # 0.4 10^3/uL (0.0-0.8); MONO % 2.4 % (0.0-5.0); NEUTROPHILS # 15.5 10^3/uL (1.5-8.5); NEUTROPHILS % 90.3 % (36.0-66.0); PLATELET COUNT, AUTOMATED 359 10^3/uL (150-450); RED BLOOD COUNT 5.06 10^6/uL (4.00-5.40); WHITE BLOOD COUNT 17.2 10^3/uL (4.0-10.0)
[2020-02-14 13:28] LABS: ALBUMIN 3.7 GM/DL (3.2-5.2); ALT/SGPT 35 U/L (12-78); BILIRUBIN,TOTAL 1.8 MG/DL (0.2-1.0); BLOOD UREA NITROGEN 10 MG/DL (7-18); CALCIUM LEVEL 9.7 MG/DL (8.8-10.2); CARBON DIOXIDE LEVEL 33 MEQ/L (21-32); CHLORIDE LEVEL 96 MEQ/L (98-107); CHOLESTEROL LEVEL 200 MG/DL (<200); CHOLESTEROL RISK RATIO 2.631 (<5); CREATININE FOR GFR 0.68 MG/DL (0.55-1.30); GLOMERULAR FILTRATION RATE > 60.0 (>45); GLUCOSE, FASTING 123 MG/DL (70-100); HDL CHOLESTEROL 76 MG/DL (>40); LDL CHOLESTEROL 109 MG/DL (<100); NON-HDL-C 124 MG/DL; POTASSIUM SERUM 3.2 MEQ/L (3.5-5.1); SODIUM LEVEL 136 MEQ/L (136-145); TOTAL PROTEIN 7.2 GM/DL (6.4-8.2); TRIGLYCERIDES LEVEL 74 MG/DL (<150)
== END ==
LOC: M LAB REF 11:58
PROVIDERS: ATTEND Nurse Practitioner Family
DX: E78.5 Hyperlipidemia, unspecified (principal); E87.6 Hypokalemia; I10 Essential (primary) hypertension

== ENCOUNTER → 2020-02-21 | Outpatient (REF) | payer MEDICARE, OTHER ==
[~2020-02-21] MED LIST changes: -ACET1TAB55 PO; -ATOR1TAB21 PO; -FURO20TA2 PO; -HYDR-3490 PO; +HYDR25TAB PO; -MONT10TA10 PO; +MONT10TA4 PO; -SULF1TAB93 PO; -SYNT88TA2 PO; -VITMTA PO
[2020-02-21 14:40] LABS: AMORPHOUS SEDIMENT MODERATE (NEGATIVE); APPEARANCE, URINE CLOUDY (CLEAR); BACTERIA, URINE AUTO NEGATIVE (NEGATIVE); BILIRUBIN, URINE AUTO NEGATIVE (NEGATIVE); BLOOD, URINE BLOOD NEGATIVE (NEGATIVE); COLOR, URINE YELLOW (YELLOW); GLUCOSE, URINE (UA) AUTO NEGATIVE (NEGATIVE); KETONE, URINE AUTO NEGATIVE (NEGATIVE); LEUKOCYTE ESTERASE, URINE AUTO NEGATIVE (NEGATIVE); MUCUS, URINE SMALL (NEGATIVE); NITRITE, URINE AUTO NEGATIVE (NEGATIVE); PROTEIN, URINE AUTO NEGATIVE (NEGATIVE); RBC, URINE AUTO 0 /HPF (0-3); SPECIFIC GRAVITY URINE AUTO 1.009 (1.002-1.035); SQUAMOUS EPITHELIAL CELL UR AU 3 /HPF (0-6); UROBILINOGEN, URINE AUTO 0.2 mg/dL (0.0-2.0); WBC, URINE AUTO 0 /HPF (0-3)
[2020-02-21 15:09] LABS: BASO # 0.1 10^3/uL (0.0-0.2); BASO % 0.3 % (0.0-1.0); EOS # 0.1 10^3/uL (0.0-0.5); EOS % 0.8 % (0.0-3.0); HEMATOCRIT 44.7 % (36.0-47.0); HEMOGLOBIN 13.9 g/dl (12.0-15.5); LYMPH # 1.9 10^3/uL (1.5-5.0); MEAN CORPUSCULAR HGB CONC 31.1 g/dl (32.0-36.5); MEAN CORPUSCULAR VOLUME 80.4 fl (80.0-96.0); NEUTROPHILS # 13.7 10^3/uL (1.5-8.5); NEUTROPHILS % 81.1 % (36.0-66.0); PLATELET COUNT, AUTOMATED 367 10^3/uL (150-450); RED BLOOD COUNT 5.56 10^6/uL (4.00-5.40); WHITE BLOOD COUNT 16.9 10^3/uL (4.0-10.0)
[2020-02-21 15:18] LABS: ALBUMIN 3.9 GM/DL (3.2-5.2); ALT/SGPT 28 U/L (12-78); BLOOD UREA NITROGEN 9 MG/DL (7-18); CARBON DIOXIDE LEVEL 35 MEQ/L (21-32); CHLORIDE LEVEL 94 MEQ/L (98-107); CREATININE FOR GFR 0.78 MG/DL (0.55-1.30); GLOMERULAR FILTRATION RATE > 60.0 (>45); GLUCOSE, FASTING 98 MG/DL (70-100); POTASSIUM SERUM 3.5 MEQ/L (3.5-5.1); SODIUM LEVEL 137 MEQ/L (136-145); TOTAL PROTEIN 7.5 GM/DL (6.4-8.2)
== END ==
LOC: M LAB REF 13:36
PROVIDERS: ATTEND Nurse Practitioner Family
DX: R74.8 Abnormal levels of other serum enzymes (principal); D72.829 Elevated white blood cell count, unspecified; E87.6 Hypokalemia

== ENCOUNTER → 2020-05-22 | Outpatient (REF) | payer MEDICARE, OTHER ==
[2020-05-22 12:32] LABS: BASO # 0.1 10^3/uL (0.0-0.2); BASO % 0.5 % (0.0-1.0); EOS # 0.2 10^3/uL (0.0-0.5); EOS % 2.3 % (0.0-3.0); HEMATOCRIT 42.1 % (36.0-47.0); HEMOGLOBIN 13.3 g/dl (12.0-15.5); LYMPH # 1.2 10^3/uL (1.5-5.0); LYMPH % 12.1 % (24.0-44.0); MEAN CORPUSCULAR HEMOGLOBIN 25.5 pg (27.0-33.0); MEAN CORPUSCULAR HGB CONC 31.6 g/dl (32.0-36.5); MEAN CORPUSCULAR VOLUME 80.8 fl (80.0-96.0); MONO # 0.6 10^3/uL (0.0-0.8); MONO % 6.2 % (0.0-5.0); NEUTROPHILS # 7.9 10^3/uL (1.5-8.5); NEUTROPHILS % 78.3 % (36.0-66.0); PLATELET COUNT, AUTOMATED 402 10^3/uL (150-450); RED BLOOD COUNT 5.21 10^6/uL (4.00-5.40); WHITE BLOOD COUNT 10.1 10^3/uL (4.0-10.0)
[2020-05-22 12:38] LABS: ALBUMIN 3.7 GM/DL (3.2-5.2); ALT/SGPT 21 U/L (12-78); BILIRUBIN,TOTAL 1.1 MG/DL (0.2-1.0); BLOOD UREA NITROGEN 8 MG/DL (7-18); CALCIUM LEVEL 9.7 MG/DL (8.8-10.2); CARBON DIOXIDE LEVEL 33 MEQ/L (21-32); CHLORIDE LEVEL 98 MEQ/L (98-107); CREATININE FOR GFR 0.66 MG/DL (0.55-1.30); GLOMERULAR FILTRATION RATE > 60.0 (>45); GLUCOSE, FASTING 105 MG/DL (70-100); POTASSIUM SERUM 3.7 MEQ/L (3.5-5.1); SODIUM LEVEL 136 MEQ/L (136-145); TOTAL PROTEIN 7.4 GM/DL (6.4-8.2)
== END ==
LOC: M LAB REF 12:02
PROVIDERS: ATTEND Nurse Practitioner Family
DX: R74.8 Abnormal levels of other serum enzymes (principal); D72.829 Elevated white blood cell count, unspecified; E87.6 Hypokalemia

== ENCOUNTER 2020-06-25 13:56 | Emergency (ER) | payer MEDICARE, MEDICAID ==
[~2020-06-25] VITALS: Ht 137.2 cm; Wt 89.6 kg
[2020-06-25] MEDS: COMBIVENT RESPIMAT 100-20MCG INHALER 4GM INH SCH ×3 (15:13→15:57)
[2020-06-25 15:19] LABS: ABG BASE EXCESS 2.6 (-2.0-2.0); ABG HCO3 26.9 MEQ/L (22.0-26.0); ABG O2 SATURATION 95.2 % (95.0-99.0); ABG PARTIAL PRESSURE CO2 40.1 mmHg (35.0-45.0); ABG STANDARD HCO3 26.8 MEQ/L (22.0-26.0); ABG TOTAL CO2 28.1 MEQ/L (23.0-31.0); ABG pH (ARTERIAL) 7.444 UNITS (7.350-7.450)
[2020-06-25 15:33] LABS: BASO # 0.1 10^3/uL (0.0-0.2); BASO % 0.4 % (0.0-1.0); EOS # 0.1 10^3/uL (0.0-0.5); EOS % 0.6 % (0.0-3.0); HEMATOCRIT 39.3 % (36.0-47.0); HEMOGLOBIN 12.1 g/dl (12.0-15.5); MEAN CORPUSCULAR HEMOGLOBIN 24.3 pg (27.0-33.0); MEAN CORPUSCULAR HGB CONC 30.8 g/dl (32.0-36.5); MEAN CORPUSCULAR VOLUME 79.1 fl (80.0-96.0); MONO # 0.8 10^3/uL (0.0-0.8); MONO % 6.2 % (0.0-5.0); NEUTROPHILS # 10.9 10^3/uL (1.5-8.5); NEUTROPHILS % 84.3 % (36.0-66.0); PLATELET COUNT, AUTOMATED 383 10^3/uL (150-450); RED BLOOD COUNT 4.97 10^6/uL (4.00-5.40); WHITE BLOOD COUNT 12.9 10^3/uL (4.0-10.0)
[2020-06-25 15:45] LABS: INR 1.02; PROTHROMBIN TIME 13.6 SECONDS (12.5-14.3)
[2020-06-25 16:00] LABS: ALBUMIN 3.7 GM/DL (3.2-5.2); ALT/SGPT 23 U/L (12-78); BILIRUBIN,DIRECT 0.4 MG/DL (0.0-0.2); BILIRUBIN,TOTAL 1.8 MG/DL (0.2-1.0); BLOOD UREA NITROGEN 9 MG/DL (7-18); CALCIUM LEVEL 9.5 MG/DL (8.8-10.2); CARBON DIOXIDE LEVEL 30 MEQ/L (21-32); CHLORIDE LEVEL 99 MEQ/L (98-107); CK-MB VALUE MASS 2.1 NG/ML (<3.6); CPK CREATINE PHOSPHOKINASE 90 U/L (26-192); CREATININE FOR GFR 0.86 MG/DL (0.55-1.30); GLOMERULAR FILTRATION RATE > 60.0 (>45); GLUCOSE, FASTING 99 MG/DL (70-100); MB/CK RELATIVE INDEX 2.33 (< OR =4); POTASSIUM SERUM 3.8 MEQ/L (3.5-5.1); SODIUM LEVEL 134 MEQ/L (136-145); TOTAL PROTEIN 7.3 GM/DL (6.4-8.2); TROPONIN I < 0.02 NG/ML (< 0.10)
--- NOTE | 2020-06-25 16:18 | REP ---
INDICATION: DYSPNEA/COUGH. COMPARISON: 11/18/2019. TECHNIQUE: SINGLE PORTABLE AP VIEW OF THE CHEST WAS PERFORMED. FINDINGS: There is mild bibasilar fibro atelectatic change which appears stable. No new infiltrate is seen. There is mild cardiomegaly. Mediastinal silhouette is unchanged. Rounded calcification the left lung base is stable. IMPRESSION: No acute infiltrate. Mild cardiomegaly and chronic changes. <Electronically signed by Constantin Hawley > 06/25/20 [id number]
[2020-06-25 16:45] VITALS: BP 182/80
--- NOTE | 2020-06-26 09:28 | ECGEPIP ---
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
== END 2020-06-25 17:32 | disposition home or self-care (01) ==
LOC: M ED 13:56
DX: R06.02 Shortness of breath (principal); J00 Acute nasopharyngitis [common cold]; I10 Essential (primary) hypertension; J44.9 Chronic obstructive pulmonary disease, unspecified; E66.9 Obesity, unspecified; E73.9 Lactose intolerance, unspecified; Z91.018 Allergy to other foods; Z77.22 Contact with and (suspected) exposure to environmental tobacco smoke (acute) (chronic); Z11.59 Encounter for screening for other viral diseases

== ENCOUNTER 2020-08-05 12:57 | Inpatient (IN) | payer MEDICARE, MEDICAID ==
[~2020-08-05] VITALS: Ht 139.7 cm; Wt 90.4 kg
[2020-08-05] MEDS: hydroCHLOROthiazide 25 MG TAB PO SCH (09:00)
[2020-08-05] MEDS: amLODIPine 10 MG TAB PO SCH (09:00)
[~2020-08-05 12:57] MED LIST changes: -MONT10TA4 PO; +MONT5TAB2 PO
[2020-08-05] MEDS ORDERED: ATOR1TAB21 PO (13:11)
[2020-08-05] MEDS ORDERED: methylPREDNISolone 125MG 2ML VIAL IV ONE (14:00)
[2020-08-05] MEDS ORDERED: COMBIVENT RESPIMAT 100-20MCG INHALER 4GM INH ONE (14:00)
[2020-08-05 14:34] LABS: BASO % 0.3 % (0.0-1.0); EOS # 0.2 10^3/uL (0.0-0.5); EOS % 1.2 % (0.0-3.0); HEMATOCRIT 39.7 % (36.0-47.0); HEMOGLOBIN 12.1 g/dl (12.0-15.5); LYMPH % 6.8 % (24.0-44.0); MEAN CORPUSCULAR HEMOGLOBIN 23.8 pg (27.0-33.0); MEAN CORPUSCULAR HGB CONC 30.5 g/dl (32.0-36.5); MONO # 0.7 10^3/uL (0.0-0.8); MONO % 4.6 % (0.0-5.0); NEUTROPHILS # 12.7 10^3/uL (1.5-8.5); NEUTROPHILS % 86.7 % (36.0-66.0); PLATELET COUNT, AUTOMATED 350 10^3/uL (150-450); RED BLOOD COUNT 5.09 10^6/uL (4.00-5.40); WHITE BLOOD COUNT 14.6 10^3/uL (4.0-10.0)
[2020-08-05 14:46] LABS: ALBUMIN 3.6 GM/DL (3.2-5.2); ALT/SGPT 20 U/L (12-78); BILIRUBIN,DIRECT 0.3 MG/DL (0.0-0.2); BLOOD UREA NITROGEN 6 MG/DL (7-18); CALCIUM LEVEL 9.3 MG/DL (8.8-10.2); CARBON DIOXIDE LEVEL 31 MEQ/L (21-32); CHLORIDE LEVEL 98 MEQ/L (98-107); CK-MB VALUE MASS 2.9 NG/ML (<3.6); CPK CREATINE PHOSPHOKINASE 118 U/L (26-192); GLOMERULAR FILTRATION RATE > 60.0 (>45); GLUCOSE, FASTING 113 MG/DL (70-100); MB/CK RELATIVE INDEX 2.46 (< OR =4); NT-PRO BNP 653 PG/ML (<125); POTASSIUM SERUM 3.4 MEQ/L (3.5-5.1); SODIUM LEVEL 135 MEQ/L (136-145); TOTAL PROTEIN 7.5 GM/DL (6.4-8.2); TROPONIN I < 0.02 NG/ML (< 0.10)
[2020-08-05] MEDS ORDERED: MORPHINE 2 MG/ML 1ML VIAL (J2270) IV ONE (15:30)
--- NOTE | 2020-08-05 15:47 | REP ---
INDICATION: rlq pain/right flank pain COMPARISON: None. TECHNIQUE: Helical scanning is acquired in 4 mm axial images were reformatted. Coronal and sagittal MPR images were generated and reviewed. FINDINGS: Preliminary digital scouts radiograph demonstrates an unremarkable bowel gas pattern. There are granulomatous lymph node calcifications in the left hilus inferiorly. There is a densely calcified benign granuloma in the left lower lobe of the lung measuring 1.5 cm in diameter. There is a2 area of linear fibrosis in the left base at the lingula adjacent to the major fissure as well. No other nodule is appreciated. Lung bases are otherwise clear. There are granulomatous calcifications scattered throughout the spleen. One or 2 granulomatous calcifications are seen in the liver. No focal liver mass lesion is seen. No abnormality is noted within the gallbladder. Pancreas is unremarkable. There is no evidence of intrarenal mass, hydronephrosis, or intrarenal calculus on either side. Normal adrenal glands are seen bilaterally. No hydronephrosis is seen. No ureteral stone is observed. No uterine or ovarian abnormality is appreciated. The urinary bladder is intact. A normal appendix is seen medial to the cecal tip. No abdominal wall defect is observed. Bone window settings show no evidence of bony destructive lesion. IMPRESSION: No urinary tract calculus or hydronephrosis seen. Granulomatous calcifications in the liver and spleen. Normal appendix. No acute abdominal or pelvic abnormality seen. <Electronically signed by Emeka Castillo > 08/05/20 [id number]
--- NOTE | 2020-08-05 15:48 | REP ---
INDICATION: DYSPNEA/COUGH. COMPARISON: Comparison chest x-ray June 25, 2020.. TECHNIQUE: Upright AP portable radiograph. FINDINGS: Monitoring electrodes are seen. There is a granulomatous calcification in the left lung base and there is linear fibrosis adjacent to this. This is unchanged. Pulmonary vasculature is cephalized. Heart size is borderline unchanged. No focal infiltrate is appreciated. The pleural angles are sharp. No significant bony abnormality. IMPRESSION: Calcified granuloma left base with some left base linear fibrosis. Borderline heart size and vascular cephalization. Otherwise negative. No infiltrate seen. <Electronically signed by Emeka Castillo > 08/05/20 [id number]
[2020-08-05] MEDS ORDERED: AZITHROMYCIN INJ 500 MG, VIAL MATE ADAPTER 1 EACH in D5W 250 ML IV ONE (16:30)
[2020-08-05] MEDS ORDERED: POTASSIUM CHLORIDE 10 MEQ SR TABLET PO ONE (17:00)
[2020-08-05] MEDS ORDERED: SYNT88TA2 PO (17:23)
[2020-08-05] MEDS ORDERED: VITMTA PO (17:23)
[2020-08-05] MEDS ORDERED: MAALOX 30 ML SUSP *UDC PO PRN (18:00)
[2020-08-05] MEDS ORDERED: ACETAMINOPHEN TAB 650MG DOSE (2X325MG) PO PRN (18:00)
[2020-08-05] MEDS ORDERED: ALBUTEROL SULFATE 2.5 MG/0.5 ML INH NEB SOLN NEB PRN (18:00)
[2020-08-05] MEDS ORDERED: MOM 30ML SUSPENSION UDC PO PRN (18:00)
[2020-08-05] MEDS ORDERED: ALBUTEROL 90 MCG/ACT 8GM HFA INHALER INH PRN (18:00)
[2020-08-05] MEDS ORDERED: FUROSEMIDE 40MG/4ML VIAL (J1940) IV ONE (18:00)
--- NOTE | 2020-08-05 18:07 | HPEPDOC ---
[facility] Medical History & Physical Date of Admission Aug 05, 2020 Date of Service: Aug 05, 2020 History and Physical CHIEF COMPLAINT: Abdominal discomfort HISTORY OF PRESENT ILLNESS: 64-year-old female history of COPD presents due to a 2 day history of abdominal discomfort that is intermittent rated 8 out of 10 at its worst it's mostly right lower quadrant with some radiation to the back. It feels much better now and joselito bee she was seen however does come and go. She doesn't think anything alleviates the pain nor worsens at she did try to take 2 aspirins that did not help. In the ED patient was found to have some shortness of breath and wheezing. She was tested for influenza and Covid both were negative. She endorses that this is her baseline and feels about the same. On exam she has significant wheezing throughout her lung nguyen. She doesn't use oxygen at home. She is only she's never smoked however her mother who she is living with for over 40 years smoked 4 packs a day in the house and she believes she has COPD from secondhand exposure. Tells me her last COPD exacerbation was 3 weeks ago. Patient denies a history of congestive heart failure endorses history of mitral valve prolapse. At home she only she gets around using a rolling walker and her mobility is unchanged from prior. PAST MEDICAL HISTORY: Asthma/COPD/ restrictive lung disease. Follows with pulmonology HTN mitral valve prolapse HLD Hypothyroidism Morbid obesity Depression Left shoulder calcific tendonitis and arthritis Urge incontinence CHFpEF echo 03/2019 PAST SURGICAL HISTORY: Cardiac cath 2016 SOCIAL HISTORY: Denies alcohol use Denies tobacco use however she has been exposed to secondhand smoke in her household for over 40 years Denies illicit drug use FAMILY HISTORY: Mother COPD, stroke, Father stroke, Parkinson, asthma, mark, decreased Otherwise reviewed and noncontributory ALLERGIES: Please see below. REVIEW OF SYSTEMS: 10 point review of systems complete all negative otherwise stated in HPI HOME MEDICATIONS: Please see below. PHYSICAL EXAMINATION: Constitutional: Awake and alert, in no apparent distress, short and obese stature ENT: Sclera are clear. Mucosa is moist. Respiratory: Moderate wheezing bilaterally throughout lung nguyen. No respiratory distress. No use of accessory muscles. Gunts and moans when moving position which she says is normal for her Cardiovascular: RRR S1 and S2 are normal, no murmur, no JVD Gastrointestinal: Abdomen is soft, non distended, mild discomfort on palpation over suprapubic area BS present. Musculoskeletal: moderate LE b/l none pitting lymphedema with superimposed trace pitting edema bilaterally Neurologic: No focal neurological deficit. Mental Status: A&O x3, normal affect Skin: Warm, dry, b/l shins hyperpigmentation scarring from hx of cellulitis LABORATORY DATA: See below. IMAGING: CT abdomen and pelvis with contrast impressions: No urinary tract calculus or hydronephrosis seen. Granulomatous calcifications in the liver and spleen. Normal appendix. No acute abdominal or pelvic abnormality seen. Chest x-ray impressions: Calcified granuloma left base with some left base linear fibrosis. Borderline heart size and vascular cephalization. Otherwise negative. No infiltrate seen MICROBIOLOGY: Please see below. ASSESSMENT/PLAN 64-year-old female history of COPD presents due to a 2 day history of abdominal discomfort and the time she was seen her abdominal pain and subsided and a CT abdomen/pelvis done was negative for acute pathology. Patient was found to be in acute on chronic COPD exacerbation and was admitted to medical unit for treatment. # Acute on chronic COPD exacerbation: 40 yrs+ year second hand smoke. Resume home meds/inhalers. Duonebs scheduled and Albuterol neb PRN. COVID negative. CXR no acute process. Azithromycin for 3 days. Prednisone for 5 days. EKG for QTC okay. Lactate 1.3 # Has some restrictive lung disease and lung nodules: following with pulmonology. Follow up with pulm at discharge. # Cystitis/UTI: Denies Dysuria. fu UCx. IV Ceftriaxone. # Elevated BNP, Hx CHFpEF: Clinically compensated, some trace pedal edema. BNP~1500 last admission. IV lasix for one day and then re-evaluate need for lasix. Echo 03/2019 G1DD # RLQ abdominal pain: CT negative. No pain at time of encounter in the ED. Monitor for symptoms. Tylenol PRN. On exam tenderness more suprapubic than RLQ, UTI could be cause of her pain. # Hypertension: Continue home meds. Monitor and titrate # Hypothyroidism: resume Synthroid. TSH. # Hypokalemia: replace. monitor. # Depression: resume home meds # Obesity: BMI 47, complicates care # DVT prophylaxis: Lovenox A Yousef Hospitalist Vital Signs Vital Signs Date Time Temp Pulse Resp B/P (MAP) Pulse Ox O2 Delivery O2 Flow Rate FiO2 08/05/20 17:05 19 Room Air 08/05/20 16:57 103 91 08/05/20 16:45 166/82 (110) 08/05/20 12:58 99.1 Laboratory Data Labs 24H Laboratory Tests 2 08/05/20 13:56: Immature Granulocyte % (Auto) 0.4, Neutrophils (%) (Auto) 86.7H, Lymphocytes (%) (Auto) 6.8L, Monocytes (%) (Auto) 4.6, Eosinophils (%) (Auto) 1.2, Basophils (%) (Auto) 0.3, Neutrophils # (Auto) 12.7H, Lymphocytes # (Auto) 1.0L, Monocytes # (Auto) 0.7, Eosinophils # (Auto) 0.2, Basophils # (Auto) 0.0, Nucleated Red Blood Cells % (auto) 0.0, Anion Gap 6L, Glomerular Filtration Rate > 60.0, Lactic Acid Level 1.3, Calcium Level 9.3, Total Bilirubin 1.0, Direct Bilirubin 0.3H, Aspartate Amino Transf (AST/SGOT) 14, Alanine Aminotransferase (ALT/SGPT) 20, Alkaline Phosphatase 159H, Total Creatine Kinase 118, Creatine Kinase MB 2.9, Creatine Kinase MB Relative Index 2.46, Troponin I < 0.02, MC-Bbl-T-Type Natriuretic Peptide 653H, Total Protein 7.5, Albumin 3.6, Albumin/Globulin Ratio 0.9L 08/05/20 14:22: Coronavirus (COVID-19)(PCR) NEGATIVE, Influenza Type A (RT-PCR) NEGATIVE, Influenza Type B (RT-PCR) NEGATIVE, Respiratory Syncytial Virus (PCR) NEGATIVE 08/05/20 16:50: Urine Color YELLOW, Urine Appearance CLOUDYH, Urine pH 7.0, Urine Specific [place] 1.005, Urine Protein NEGATIVE, Urine Glucose (UA) NEGATIVE, Urine Ketones NEGATIVE, Urine Blood 2+H, Urine Nitrite NEGATIVE, Urine Bilirubin NEGATIVE, Urine Urobilinogen 0.2, Urine Leukocyte Esterase 1+H, Urine WBC (Auto) 5H, Urine RBC (Auto) 0, Urine Hyaline Casts (Auto) 0, Urine Bacteria (Auto) 2+H, Urine Squamous Epithelial Cells 1, Urine Sperm (Auto) CBC/BMP Laboratory Tests 08/05/20 13:56 Microbiology Microbiology 08/05/20 Blood Culture, Received Pending 08/05/20 Urine Culture, Received Pending 08/05/20 Blood Culture, Received Pending Home Medications Scheduled Amlodipine Besylate (Norvasc) 10 Mg Tablet, 10 MG PO DAILY Aripiprazole (Aripiprazole) 10 Mg Tablet, 5 MG PO QHS Atorvastatin Calcium (Atorvastatin Calcium) 20 Mg Tablet, 20 MG PO DAILY Fluticasone/Vilanterol (Breo Ellipta 200-25 Mcg INH) 1 Inh Inh, 1 PUFF INH DAILY Hydrochlorothiazide (Hydrochlorothiazide) 25 Mg Tablet, 25 MG PO DAILY Levothyroxine Sodium (Synthroid) 88 Mcg Tablet, 88 MCG PO DAILY Montelukast Sodium (Montelukast Sodium) 10 Mg Tablet, 10 MG PO QHS Multivitamins (Thera M Plus Tablet) 1 Each Tablet, 1 TAB PO DAILY Potassium Chloride (Potassium Chloride) 10 Meq Capsule.er, 10 MEQ PO DAILY Sertraline HCl (Sertraline HCl) 25 Mg Tablet, 25 MG PO DAILY Scheduled PRN Albuterol Sulfate (Proair Hfa) 8.5 Gm Hfa.aer.ad, 2 PUFF INH Q4H PRN for WHEEZING Allergies Coded Allergies: chocolate flavor (Verified Adverse Reaction, Unknown, DIARRHEA, 09/26/19) lactose (Verified Adverse Reaction, Unknown, LACTOSE INTOLERANT, 09/26/19) A-FIB/CHADSVASC A-FIB History Current/History of A-Fib/PAF?: No PAUL SPRAGUE MD Aug 05, 2020 18:07
[2020-08-05] MEDS: cefTRIAXone SOD 1 GM in D5W MINI-BAG PLUS 50 ML IV SCH (18:38)
--- NOTE | 2020-08-05 19:40 | ECGEPIP ---
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 Order Number: [id number] Reading MD: Annette Best Measurements Intervals [place] Rate: 85 P: 53 DC: 165 QRS: 2 QRSD: 94 T: 27 QT: 390 QTc: 466 Interpretive Statements SINUS RHYTHM WITH OCCASIONAL SUPRAVENTRICULAR PREMATURE COMPLEXES NONSPECIFIC ST & T-WAVE ABNORMALITY 06/25/[address] T WAVE CHANGES Electronically Signed on 08-05-2020 19:40:31 EST by Annette Best
[2020-08-05] MEDS: MONTELUKAST 10 MG TAB PO SCH (21:05)
[2020-08-05] MEDS: DOCUSATE SODIUM 100MG CAPSULE PO SCH (21:05)
[2020-08-05] MEDS: ENOXAPARIN 40MG/0.4ML SYRINGE (J1650 PER 10MG) SC SCH (21:06)
[2020-08-05] MEDS: SYMBICORT 80/4.5MCG INHALER 6GM INH SCH (21:28)
[2020-08-05] MEDS: IPRATROPIUM 0.5MG/ALBUTEROL 2.5MG INH SOL UD 3ML (DUONEB) NEB SCH (21:28)
[2020-08-05 22:55] VITALS: BP 164/72
[2020-08-06] MEDS ORDERED: SLF 3 ML SYR IV PRN (05:15)
[2020-08-06] MEDS: SLF 3 ML SYR IV SCH ×3 (05:55→20:40)
[2020-08-06] MEDS: LEVOTHYROXINE 88MCG TABLET (0.088 MG) PO SCH (05:55)
[2020-08-06 06:00] VITALS: BP 126/56
[2020-08-06] MEDS: IPRATROPIUM 0.5MG/ALBUTEROL 2.5MG INH SOL UD 3ML (DUONEB) NEB SCH ×4 (06:04→19:27)
[2020-08-06 06:48] LABS: HEMATOCRIT 34.4 % (36.0-47.0); HEMOGLOBIN 10.9 g/dl (12.0-15.5); MEAN CORPUSCULAR HEMOGLOBIN 24.3 pg (27.0-33.0); MEAN CORPUSCULAR HGB CONC 31.7 g/dl (32.0-36.5); MEAN CORPUSCULAR VOLUME 76.8 fl (80.0-96.0); PLATELET COUNT, AUTOMATED 331 10^3/uL (150-450); RED BLOOD COUNT 4.48 10^6/uL (4.00-5.40); WHITE BLOOD COUNT 12.6 10^3/uL (4.0-10.0)
[2020-08-06 07:09] LABS: BLOOD UREA NITROGEN 12 MG/DL (7-18); CALCIUM LEVEL 9.1 MG/DL (8.8-10.2); CARBON DIOXIDE LEVEL 31 MEQ/L (21-32); CHLORIDE LEVEL 99 MEQ/L (98-107); CREATININE FOR GFR 0.74 MG/DL (0.55-1.30); GLOMERULAR FILTRATION RATE > 60.0 (>45); GLUCOSE, FASTING 143 MG/DL (70-100); NT-PRO BNP 1434 PG/ML (<125); POTASSIUM SERUM 3.6 MEQ/L (3.5-5.1); SODIUM LEVEL 135 MEQ/L (136-145)
[2020-08-06] MEDS: SYMBICORT 80/4.5MCG INHALER 6GM INH SCH ×2 (07:29→19:27)
--- NOTE | 2020-08-06 08:14 | IPNPDOC ---
Text Note Date of Service The patient was seen on 08/06/20. NOTE Subjective: Patient was seen and examined this morning at bedside. Tells me she's feeling same as yesterday her breathing feels much better but she continues to have some right flank discomfort. Nurse reports no overnight events. Patient denies any chest pain. No more wheezing. Objective: Constitutional: Awake and alert, in no apparent distress, short and obese stature ENT: Sclera are clear. Mucosa is moist. Respiratory: minimal wheezing b/l, big improvement from yesterday. No respiratory distress. No use of accessory muscles. Gunts and moans when moving position which she says is normal for her. Coughing. Cardiovascular: RRR S1 and S2 are normal, no murmur, no JVD Gastrointestinal: Abdomen is soft, non distended, mild discomfort on palpation over suprapubic area BS present. Mild right flank pain on palpation. Musculoskeletal: moderate LE b/l none pitting lymphedema with superimposed trace pitting edema bilaterally Neurologic: No focal neurological deficit. Mental Status: A&O x3, normal affect Skin: Warm, dry, b/l shins hyperpigmentation scarring from hx of cellulitis Assessment/plan: 64-year-old female history of COPD presents due to a 2 day history of abdominal discomfort and the time she was seen her abdominal pain and subsided and a CT abdomen/pelvis done was negative for acute pathology. Patient was found to be in acute on chronic COPD exacerbation and was admitted to medical unit for treatment. # Acute on chronic COPD exacerbation: 40 yrs+ year second hand smoke. Resume home meds/inhalers. Duonebs scheduled and Albuterol neb PRN. COVID negative. CXR no acute process. Azithromycin for 3 days. Prednisone for 5 days. EKG for QTC okay. Lactate 1.3 # Cystitis/UTI: Denies Dysuria. fu UCx. IV Ceftriaxone. Initial specimen contaminated, will repeat UA/UCx, however will be less reliable as pt has been on ABx. # RLQ abdominal pain: CT negative. Tylenol and morphine PRN. On exam tenderness more suprapubic than RLQ, some mild R flank pain. UTI could be cause of her pain. # Elevated BNP, Hx CHFpEF: Clinically compensated, some trace pedal edema. BNP~1500 last admission. Echo 03/2019 G1DD. Will give few days of IV lasix. # Restrictive lung disease and lung nodules: following with pulmonology. Follow up with pulm at discharge. # Hypertension: Continue home meds. Monitor and titrate # Hypothyroidism: resume Synthroid. TSH. # Hypokalemia: replace. monitor. # Depression: resume home meds # Obesity: BMI 47, complicates care # DVT prophylaxis: Feliciano Sprague Hospitalist VSSalomon, I+O VS, Salomon, I+O Laboratory Tests 08/05/20 13:56 08/06/20 06:14 Vital Signs Date Time Temp Pulse Resp B/P (MAP) Pulse Ox O2 Delivery O2 Flow Rate FiO2 08/06/20 06:00 97.9 76 20 126/56 (79) 88 Room Air I&O- Last 24 Hours up to 6 AM 08/06/20 06:00 Intake Total 255 ml Output Total 0 ml Balance 255 ml PAUL SPRAGUE MD Aug 06, 2020 08:14
[2020-08-06] MEDS ORDERED: MORPHINE 2 MG/ML 1ML VIAL (J2270) IV PRN (08:15)
[2020-08-06] MEDS: predniSONE 20 MG TAB PO SCH (09:00)
[2020-08-06] MEDS: amLODIPine 10 MG TAB PO SCH (09:00)
[2020-08-06] MEDS: hydroCHLOROthiazide 25 MG TAB PO SCH (09:00)
[2020-08-06] MEDS: SERTRALINE HCL 25 MG TABLET PO SCH (09:00)
[2020-08-06] MEDS: MULTIVITAMINS/MINERALS THERAP 1 TAB PO SCH (09:01)
[2020-08-06] MEDS: POTASSIUM CHLORIDE 10 MEQ SR TABLET PO SCH (09:01)
[2020-08-06] MEDS: DOCUSATE SODIUM 100MG CAPSULE PO SCH ×2 (09:01→20:40)
[2020-08-06] MEDS: ATORVASTATIN 20 MG TAB PO SCH (09:01)
[2020-08-06] MEDS: FUROSEMIDE 20MG/2ML VIAL (J1940) IV SCH ×2 (09:02→17:13)
[2020-08-06] MEDS: AZITHROMYCIN INJ 500 MG, VIAL MATE ADAPTER 1 EACH in D5W 250 ML IV SCH (12:47)
[2020-08-06 14:00] VITALS: BP 139/75
[2020-08-06 16:39] LABS: APPEARANCE, URINE CLEAR (CLEAR); BACTERIA, URINE AUTO NEGATIVE (NEGATIVE); BILIRUBIN, URINE AUTO NEGATIVE (NEGATIVE); BLOOD, URINE BLOOD NEGATIVE (NEGATIVE); COLOR, URINE YELLOW (YELLOW); GLUCOSE, URINE (UA) AUTO NEGATIVE (NEGATIVE); KETONE, URINE AUTO NEGATIVE (NEGATIVE); LEUKOCYTE ESTERASE, URINE AUTO NEGATIVE (NEGATIVE); MUCUS, URINE SMALL (NEGATIVE); NITRITE, URINE AUTO NEGATIVE (NEGATIVE); PROTEIN, URINE AUTO NEGATIVE (NEGATIVE); RBC, URINE AUTO 0 /HPF (0-3); SPECIFIC GRAVITY URINE AUTO 1.009 (1.002-1.035); SQUAMOUS EPITHELIAL CELL UR AU 1 /HPF (0-6); UROBILINOGEN, URINE AUTO 0.2 mg/dL (0.0-2.0); WBC, URINE AUTO 0 /HPF (0-3)
[2020-08-06] MEDS: cefTRIAXone SOD 1 GM in D5W MINI-BAG PLUS 50 ML IV SCH (17:12)
[2020-08-06] MEDS: guaiFENesin SYRUP 200 MG/10 ML UDC PO PRN (17:46)
[2020-08-06 20:00] VITALS: BP 149/68
[2020-08-06] MEDS: ENOXAPARIN 40MG/0.4ML SYRINGE (J1650 PER 10MG) SC SCH (20:40)
[2020-08-06] MEDS: MONTELUKAST 10 MG TAB PO SCH (20:40)
[2020-08-07] MEDS: IPRATROPIUM 0.5MG/ALBUTEROL 2.5MG INH SOL UD 3ML (DUONEB) NEB SCH ×4 (02:00→19:34)
[2020-08-07 05:46] VITALS: BP 120/58
[2020-08-07] MEDS: SLF 3 ML SYR IV SCH ×3 (05:47→22:00)
[2020-08-07] MEDS: LEVOTHYROXINE 88MCG TABLET (0.088 MG) PO SCH (05:47)
[2020-08-07] MEDS: SYMBICORT 80/4.5MCG INHALER 6GM INH SCH ×2 (07:20→19:34)
[2020-08-07 07:46] LABS: HEMATOCRIT 36.9 % (36.0-47.0); HEMOGLOBIN 11.5 g/dl (12.0-15.5); MEAN CORPUSCULAR HEMOGLOBIN 24.2 pg (27.0-33.0); MEAN CORPUSCULAR HGB CONC 31.2 g/dl (32.0-36.5); MEAN CORPUSCULAR VOLUME 77.5 fl (80.0-96.0); PLATELET COUNT, AUTOMATED 356 10^3/uL (150-450); RED BLOOD COUNT 4.76 10^6/uL (4.00-5.40)
[2020-08-07 08:26] LABS: BLOOD UREA NITROGEN 19 MG/DL (7-18); CALCIUM LEVEL 9.2 MG/DL (8.8-10.2); CARBON DIOXIDE LEVEL 32 MEQ/L (21-32); CHLORIDE LEVEL 98 MEQ/L (98-107); CREATININE FOR GFR 0.83 MG/DL (0.55-1.30); GLOMERULAR FILTRATION RATE > 60.0 (>45); GLUCOSE, FASTING 93 MG/DL (70-100); POTASSIUM SERUM 2.9 MEQ/L (3.5-5.1); SODIUM LEVEL 137 MEQ/L (136-145)
[2020-08-07] MEDS: FUROSEMIDE 20MG/2ML VIAL (J1940) IV SCH ×2 (09:00→17:24)
[2020-08-07] MEDS: DOCUSATE SODIUM 100MG CAPSULE PO SCH ×2 (09:18→21:58)
[2020-08-07] MEDS: POTASSIUM CHLORIDE 10 MEQ SR TABLET PO SCH (09:19)
[2020-08-07] MEDS: ATORVASTATIN 20 MG TAB PO SCH (09:19)
[2020-08-07] MEDS: MULTIVITAMINS/MINERALS THERAP 1 TAB PO SCH (09:19)
[2020-08-07] MEDS: SERTRALINE HCL 25 MG TABLET PO SCH (09:19)
[2020-08-07] MEDS: predniSONE 20 MG TAB PO SCH (09:19)
[2020-08-07] MEDS: amLODIPine 10 MG TAB PO SCH (09:37)
[2020-08-07] MEDS: hydroCHLOROthiazide 25 MG TAB PO SCH (09:37)
--- NOTE | 2020-08-07 12:25 | IPNPDOC ---
Date Seen The patient was seen on 08/07/20. Progress Note SUBJECTIVE: Patient was seen and examined at bedside this morning. Doing well. Denies lower abdominal pain, fevers, chills, nausea, vomiting, diarrhea, chest pain, palpitations or shortness of breath. Vital signs stable overnight. No fevers. OBJECTIVE PHYSICAL EXAMINATION: VITAL SIGNS: please see below General: NAD, comfortable HEENT: PERRLA, EOMI, sclerae clear Neck: supple, normal ROM, no JVD Respiratory: lungs CTAB, no wheeze, no rales, no crackles CVS: RRR, normal S1, S2, no murmurs Abdo: soft, no masses, no hepatosplenomegaly, BS+, no rebound tenderness Extremities: Trace pitting edema pulses 2+ MSK: no joint deformities, normal ROM Neuro: no focal neuro deficits, moving all 4 extremities, CN2-12 intact. Strength 5/5 in all 4 extremities. No nystagmus. Psych: calm, cooperative, AAO x 3 LABORATORY DATA, IMAGING STUDIES, MICROBIOLOGY: Please see below. DVT prophylaxis ordered?: Is, Lovenox Assessment/plan: 64-year-old female history of COPD presents due to a 2 day history of abdominal discomfort and the time she was seen her abdominal pain and subsided and a CT abdomen/pelvis done was negative for acute pathology. Patient was found to be in acute on chronic COPD exacerbation and was admitted to medical unit for treatment. # Acute on chronic COPD exacerbation: 40 yrs+ year second hand smoke. Resume home meds/inhalers. Duonebs scheduled and Albuterol neb PRN. COVID negative. CXR no acute process. Azithromycin for 3 days. Prednisone for 5 days. EKG for QTC okay. Lactate 1.3 #Leukocytosis: WBC 19, in context of prednisone use. Afebrile. No cough, no dysuria. # Cystitis/UTI: Denies Dysuria. IV Ceftriaxone. UCx contam, repeat no growth, likely 2/2 abx use. # RLQ abdominal pain: resolved. CT negative. Tylenol and morphine PRN. Possible resolving UTI/pyelo # Elevated BNP, Hx CHFpEF: Clinically compensated, some trace pedal edema. BNP~1500 last admission. Echo 03/2019 G1DD. Will give few days of IV lasix. # Restrictive lung disease and lung nodules: following with pulmonology. Follow up with pulm at discharge. # Hypertension: Continue home meds. Monitor and titrate # Hypothyroidism: resume Synthroid. TSH. # Hypokalemia: replace. monitor. # Depression: resume home meds # Obesity: BMI 47, complicates care # DVT prophylaxis: Lovenox VS, I&O, 24H, Fishbone Vital Signs/I&O Vital Signs Date Time Temp Pulse Resp B/P (MAP) Pulse Ox O2 Delivery O2 Flow Rate FiO2 08/07/20 09:37 77 120/58 08/07/20 05:46 98.3 18 93 Room Air I&O- Last 24 Hours up to 6 AM 08/07/20 06:00 Intake Total 1340 ml Output Total 0 ml Balance 1340 ml Laboratory Data 24H LABS Laboratory Tests 2 08/06/20 16:07: Urine Color YELLOW, Urine Appearance CLEAR, Urine pH 7.0, Urine Specific [place] 1.009, Urine Protein NEGATIVE, Urine Glucose (Auto)(UA) NEGATIVE, Urine Ketones (Auto) NEGATIVE, Urine Blood NEGATIVE, Urine Nitrite NEGATIVE, Urine Bilirubin NEGATIVE, Urine Urobilinogen 0.2, Urine Leukocyte Esterase (Auto) NEGATIVE, Urine WBC (Auto) 0, Urine RBC (Auto) 0, Urine Hyaline Casts (Auto) 0, Urine Bacteria (Auto) NEGATIVE, Urine Squamous Epithelial Cells 1, Urine Mucus (Auto) SMALL, Urine Sperm (Auto) 08/07/20 07:05: Nucleated Red Blood Cells % (auto) 0.0, Anion Gap 7L, Glomerular Filtration Rate > 60.0, Calcium Level 9.2 CBC/BMP Laboratory Tests 08/07/20 07:05 Microbiology Microbiology 08/06/20 Urine Culture - Final, Complete 08/05/20 Blood Culture - Preliminary, Resulted No growth after 24 hours . All specim... 08/05/20 Urine Culture - Final, Complete 08/05/20 Blood Culture - Preliminary, Resulted No growth after 24 hours . All specim... RONDA NINO MD Aug 07, 2020 12:25
[2020-08-07] MEDS: AZITHROMYCIN INJ 500 MG, VIAL MATE ADAPTER 1 EACH in D5W 250 ML IV SCH (13:00)
[2020-08-07 14:00] VITALS: BP 138/94
[2020-08-07] MEDS ORDERED: LIDOCAINE 1% MDV 20ML VIAL As Ordered ONE (15:19)
--- NOTE | 2020-08-07 17:14 | REP ---
PROCEDURE NAME: MIDLINE INSERTION W/ SITERITE CLINICAL INFORMATION: poor venous access. COMPARISON: None. PROCEDURE DESCRIPTION: The procedure was performed by LEYDI Ross, under the direct supervision of Dr. Castillo. The risks and benefits of the procedure were explained to the patient and an informed consent was obtained both verbally and written. Directly prior to the start of the procedure a formal time-out was completed in the procedure room. The right cephalic vein was localized using ultrasound guidance. The skin was prepped and draped in sterile fashion. One mL of 1% lidocaine 10 mg/mL was used as a local anesthetic. Using ultrasound guidance the right cephalic vein was cannulated, and a 0.018 guidewire was inserted. The needle was removed and a 4.5 Burmese dilator and peel-away sheath was inserted over the guidewire. A 4.5 Burmese single lumen catheter was cut to a length of 12 cm. The dilator was removed and the catheter was inserted over the guidewire. The peel-away sheath was removed and the catheter was flushed with heparinized saline as per hospital protocol. The catheter was affixed to the skin and a sterile dressing was applied. The patient tolerated the procedure well and there were no immediate complications. CONCLUSION: Mid line insertion into the right cephalic vein. <Electronically signed by Julissa Purvis > 08/07/20 1630 <Electronically signed by Emeka Castillo > 08/07/20 1710
[2020-08-07] MEDS: cefTRIAXone SOD 1 GM in D5W MINI-BAG PLUS 50 ML IV SCH (17:24)
[2020-08-07] MEDS ORDERED: POTASSIUM CHLORIDE 10 MEQ SR TABLET PO ONE (17:45)
[2020-08-07] MEDS: KCL 10MEQ/100ML SWI (KRUN) 10 MEQ in IV 1 EA IV SCH ×4 (17:57→21:58)
[2020-08-07] MEDS: MONTELUKAST 10 MG TAB PO SCH (21:58)
[2020-08-07] MEDS: ENOXAPARIN 40MG/0.4ML SYRINGE (J1650 PER 10MG) SC SCH (21:58)
--- NOTE | 2020-08-07 22:34 | REPVR ---
PROCEDURE INFORMATION: Exam: US Duplex Lower Extremity Veins, Bilateral Exam date and time: 08/07/2020 9:11 PM Age: 64 years old Clinical indication: Edema, localized; Lower extremity, bilateral; Additional info: Bilateral le swelling R/O dvt TECHNIQUE: Imaging protocol: Real-time duplex ultrasound of the extremities with 2-D francois scale, color Doppler flow and spectral waveform analysis with image documentation. Complete exam focused on the bilateral lower extremity veins. COMPARISON: US Duplex, Ext,LOWER veins,unilat LEFT 02/19/2019 5:44 PM FINDINGS: Right deep veins: Unremarkable. The common femoral, femoral, proximal profunda femoral and popliteal veins are patent without thrombus. Normal Doppler waveforms. Normal compressibility and/or augmentation response. Right superficial veins: Saphenofemoral junction is patent without thrombus. Left deep veins: Unremarkable. The common femoral, femoral, proximal profunda femoral and popliteal veins are patent without thrombus. Normal Doppler waveforms. Normal compressibility and/or augmentation response. Left superficial veins: Saphenofemoral junction is patent without thrombus. Soft tissues: Unremarkable. IMPRESSION: No evidence of deep vein thrombosis. Electronically signed by: Noah Mazariegos On 08/07/2020 22:34:30 PM
[2020-08-07] MEDS: guaiFENesin SYRUP 200 MG/10 ML UDC PO PRN (23:15)
[2020-08-07] MEDS ORDERED: KCL 10MEQ/100ML SWI (KRUN) 10 MEQ in IV 1 EA IV SCH (23:59)
[2020-08-08] MEDS: IPRATROPIUM 0.5MG/ALBUTEROL 2.5MG INH SOL UD 3ML (DUONEB) NEB SCH ×2 (00:56→08:00)
[2020-08-08] MEDS: SLF 3 ML SYR IV SCH (05:43)
[2020-08-08] MEDS: LEVOTHYROXINE 88MCG TABLET (0.088 MG) PO SCH (05:43)
[2020-08-08 06:00] VITALS: BP 117/55
[2020-08-08 06:46] LABS: HEMATOCRIT 33.5 % (36.0-47.0); MEAN CORPUSCULAR HEMOGLOBIN 23.4 pg (27.0-33.0); MEAN CORPUSCULAR HGB CONC 29.9 g/dl (32.0-36.5); MEAN CORPUSCULAR VOLUME 78.3 fl (80.0-96.0); PLATELET COUNT, AUTOMATED 317 10^3/uL (150-450); RED BLOOD COUNT 4.28 10^6/uL (4.00-5.40); WHITE BLOOD COUNT 14.2 10^3/uL (4.0-10.0)
[2020-08-08 07:05] LABS: BLOOD UREA NITROGEN 18 MG/DL (7-18); CALCIUM LEVEL 8.6 MG/DL (8.8-10.2); CARBON DIOXIDE LEVEL 31 MEQ/L (21-32); CHLORIDE LEVEL 102 MEQ/L (98-107); CREATININE FOR GFR 0.66 MG/DL (0.55-1.30); GLOMERULAR FILTRATION RATE > 60.0 (>45); GLUCOSE, FASTING 76 MG/DL (70-100); POTASSIUM SERUM 3.9 MEQ/L (3.5-5.1); SODIUM LEVEL 140 MEQ/L (136-145)
[2020-08-08] MEDS: FUROSEMIDE 20MG/2ML VIAL (J1940) IV SCH (08:25)
[2020-08-08] MEDS: DOCUSATE SODIUM 100MG CAPSULE PO SCH (08:25)
[2020-08-08] MEDS: SERTRALINE HCL 25 MG TABLET PO SCH (08:25)
[2020-08-08] MEDS: MULTIVITAMINS/MINERALS THERAP 1 TAB PO SCH (08:25)
[2020-08-08] MEDS: predniSONE 20 MG TAB PO SCH (08:26)
[2020-08-08] MEDS: ATORVASTATIN 20 MG TAB PO SCH (08:26)
[2020-08-08] MEDS: POTASSIUM CHLORIDE 10 MEQ SR TABLET PO SCH (08:26)
[2020-08-08] MEDS: hydroCHLOROthiazide 25 MG TAB PO SCH (08:27)
[2020-08-08 08:28] VITALS: BP 134/68
[2020-08-08] MEDS: amLODIPine 10 MG TAB PO SCH (08:28)
[2020-08-08] MEDS: SYMBICORT 80/4.5MCG INHALER 6GM INH SCH (08:33)
[2020-08-08] MEDS ORDERED: BACTRIM 160MG/800MG DS TAB PO SCH (09:00)
[2020-08-08] MEDS ORDERED: PRED20TA PO (10:56)
[2020-08-08] MEDS ORDERED: SULF1TAB93 PO (10:56)
[2020-08-08] MEDS ORDERED: FURO20TA2 PO (10:56)
[2020-08-08] MEDS ORDERED: ACET1TAB55 PO (10:56)
--- NOTE | 2020-08-08 10:58 | DS.PDOC ---
Discharge Summary General Date of Admission Aug 05, 2020 at 17:59 Date of Discharge 08/08/20 Discharge Summary PROCEDURES PERFORMED DURING STAY: [None]. ADMITTING DIAGNOSES: 1. . DISCHARGE DIAGNOSES: 1. . COMPLICATIONS/CHIEF COMPLAINT: Copd Exacerbation,Right Lower Quadrant Abdominal P. HISTORY OF PRESENT ILLNESS: . HOSPITAL COURSE: . DISCHARGE MEDICATIONS: Please see below. ALLERGIES: Please see below. PHYSICAL EXAMINATION ON DISCHARGE: VITAL SIGNS: Please see below. GENERAL: HEENT: NECK: CARDIOVASCULAR EXAMINATION: RESPIRATORY EXAMINATION: ABDOMINAL EXAMINATION: EXTREMITIES: SKIN: NEUROLOGICAL EXAMINATION: PSYCHIATRIC EXAMINATION: LABORATORY DATA: Please see below. IMAGING: Bilateral Venous Duplex (08/07/20): IMPRESSION: No evidence of deep vein thrombosis. PROGNOSIS: ACTIVITY: [As tolerated]. DIET: DISCHARGE PLAN: DISPOSITION: . DISCHARGE INSTRUCTIONS: 1. . ITEMS TO FOLLOWUP ON ON OUTPATIENT: 1. . DISCHARGE CONDITION: [Stable]. TIME SPENT ON DISCHARGE: Greater than minutes. Vital Signs/I&Os Vital Signs Date Time Temp Pulse Resp B/P (MAP) Pulse Ox O2 Delivery O2 Flow Rate FiO2 08/08/20 08:28 88 134/68 08/08/20 06:00 97.8 18 90 Room Air I&O- Last 24 Hours up to 6 AM 08/08/20 06:00 Intake Total 810 ml Output Total 550 ml Balance 260 ml Laboratory Data Labs 24H Laboratory Tests 2 08/08/20 05:39: Nucleated Red Blood Cells % (auto) 0.0, Anion Gap 7L, Glomerular Filtration Rate > 60.0, Calcium Level 8.6L CBC/BMP Laboratory Tests 08/08/20 05:39 Microbiology Microbiology 08/06/20 Urine Culture - Final, Complete 08/05/20 Blood Culture - Preliminary, Resulted No Growth after 48 hours. All Specime... 08/05/20 Urine Culture - Final, Complete 08/05/20 Blood Culture - Preliminary, Resulted No Growth after 48 hours. All Specime... Discharge Medications Scheduled Amlodipine Besylate (Norvasc) 10 Mg Tablet, 10 MG PO DAILY, (Reported) Aripiprazole (Aripiprazole) 10 Mg Tablet, 5 MG PO QHS, (Reported) Atorvastatin Calcium (Atorvastatin Calcium) 20 Mg Tablet, 20 MG PO DAILY, (Reported) Fluticasone/Vilanterol (Breo Ellipta 200-25 Mcg INH) 1 Inh Inh, 1 PUFF INH DA EUGENE, (Reported) Hydrochlorothiazide (Hydrochlorothiazide) 25 Mg Tablet, 25 MG PO DAILY, (Reported) Levothyroxine Sodium (Synthroid) 88 Mcg Tablet, 88 MCG PO DAILY, (Reported) Montelukast Sodium (Montelukast Sodium) 10 Mg Tablet, 10 MG PO QHS, (Reported) Multivitamins (Thera M Plus Tablet) 1 Each Tablet, 1 TAB PO DAILY, (Reported) Potassium Chloride (Potassium Chloride) 10 Meq Capsule.er, 10 MEQ PO DAILY, (Reported) Prednisone (Prednisone) 20 Mg Tablet, 40 MG PO DAILY Sertraline HCl (Sertraline HCl) 25 Mg Tablet, 25 MG PO DAILY, (Reported) Sulfamethoxazole/Trimethoprim (Sulfamethoxazole-Tmp Ds Tablet) 1 Each Tablet, 1 TAB PO BID Scheduled PRN Acetaminophen (Acetaminophen) 325 Mg Tablet, 650 MG PO Q4H PRN for PAIN OR FEVER Albuterol Sulfate (Proair Hfa) 8.5 Gm Hfa.aer.ad, 2 PUFF INH Q4H PRN for WHEEZING, (Reported) Furosemide (Furosemide) 20 Mg Tablet, 1 TAB PO DAILY PRN for SEE DOSE INSTRUCTIONS Allergies Coded Allergies: chocolate flavor (Verified Adverse Reaction, Unknown, DIARRHEA, 09/26/19) lactose (Verified Adverse Reaction, Unknown, LACTOSE INTOLERANT, 09/26/19) RONDA NINO MD Aug 08, 2020 10:58
== END 2020-08-08 12:55 | disposition home or self-care (01) | DRG 191 ==
LOC: M ED 12:57 → M ED INP 17:59 → M MS5PR 22:55
PROVIDERS: ADMIT Family Medicine; ATTEND Family Medicine
PROC: 02HV33Z Insertion of Infusion Device into Superior Vena Cava, Percutaneous Approach (ICD-10-PCS; principal; 2020-08-07 15:30)
DX: J44.1 Chronic obstructive pulmonary disease with (acute) exacerbation (principal); N39.0 Urinary tract infection, site not specified; Z68.42 Body mass index [BMI] 45.0-49.9, adult; I50.32 Chronic diastolic (congestive) heart failure; Z79.899 Other long term (current) drug therapy; Z91.018 Allergy to other foods; I11.0 Hypertensive heart disease with heart failure; E03.9 Hypothyroidism, unspecified; F32.9 Major depressive disorder, single episode, unspecified; E87.6 Hypokalemia; E66.9 Obesity, unspecified; R91.8 Other nonspecific abnormal finding of lung field

== ENCOUNTER 2020-08-11 17:10 | Emergency (ER) | payer MEDICARE, MEDICAID ==
[~2020-08-11] VITALS: Ht 142.2 cm; Wt 85.0 kg
[~2020-08-11 17:10] MED LIST changes: +ACET1TAB55 PO; +ATOR1TAB21 PO; +FURO20TA2 PO; +SULF1TAB93 PO; +SYNT88TA2 PO; +VITMTA PO
[2020-08-11] MEDS ORDERED: IPRATROPIUM 0.5MG/ALBUTEROL 2.5MG INH SOL UD 3ML (DUONEB) NEB ONE (17:30)
--- NOTE | 2020-08-11 17:58 | ECGEPIP ---
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
--- NOTE | 2020-08-11 18:32 | REPVR ---
PROCEDURE INFORMATION: Exam: US Duplex Lower Extremity Veins, Bilateral Exam date and time: 08/11/2020 6:25 PM Age: 64 years old Clinical indication: Pain; Leg, lower; Bilateral; Additional info: Swelling TECHNIQUE: Imaging protocol: Real-time duplex ultrasound of the extremities with 2-D francois scale, color Doppler flow and spectral waveform analysis with image documentation. Complete exam focused on the bilateral lower extremity veins. COMPARISON: US [facility] 08/07/2020 8:56 PM FINDINGS: Right deep veins: Unremarkable. The common femoral, femoral, proximal profunda femoral and popliteal veins are patent without thrombus. Normal Doppler waveforms. Normal compressibility and/or augmentation response. Right superficial veins: Saphenofemoral junction is patent without thrombus. Left deep veins: Unremarkable. The common femoral, femoral, proximal profunda femoral and popliteal veins are patent without thrombus. Normal Doppler waveforms. Normal compressibility and/or augmentation response. Left superficial veins: Saphenofemoral junction is patent without thrombus. Soft tissues: Unremarkable. IMPRESSION: No evidence of deep vein thrombosis. Electronically signed by: Kelly Hodge On 08/11/2020 18:31:45 PM
[2020-08-11 19:22] LABS: BASO % 0.2 % (0.0-1.0); EOS % 0.1 % (0.0-3.0); HEMATOCRIT 42.1 % (36.0-47.0); HEMOGLOBIN 13.1 g/dl (12.0-15.5); LYMPH # 1.1 10^3/uL (1.5-5.0); LYMPH % 4.7 % (24.0-44.0); MEAN CORPUSCULAR HEMOGLOBIN 23.6 pg (27.0-33.0); MEAN CORPUSCULAR HGB CONC 31.1 g/dl (32.0-36.5); MONO # 0.6 10^3/uL (0.0-0.8); MONO % 2.7 % (0.0-5.0); NEUTROPHILS # 20.7 10^3/uL (1.5-8.5); NEUTROPHILS % 91.5 % (36.0-66.0); PLATELET COUNT, AUTOMATED 437 10^3/uL (150-450); RED BLOOD COUNT 5.54 10^6/uL (4.00-5.40); WHITE BLOOD COUNT 22.6 10^3/uL (4.0-10.0)
[2020-08-11 20:34] LABS: ALBUMIN 3.5 GM/DL (3.2-5.2); ALT/SGPT 26 U/L (12-78); BILIRUBIN,DIRECT 0.2 MG/DL (0.0-0.2); BILIRUBIN,TOTAL 0.7 MG/DL (0.2-1.0); BLOOD UREA NITROGEN 15 MG/DL (7-18); CALCIUM LEVEL 9.2 MG/DL (8.8-10.2); CARBON DIOXIDE LEVEL 28 MEQ/L (21-32); CHLORIDE LEVEL 96 MEQ/L (98-107); CK-MB VALUE MASS 2.1 NG/ML (<3.6); CPK CREATINE PHOSPHOKINASE 84 U/L (26-192); CREATININE FOR GFR 1.31 MG/DL (0.55-1.30); GLOMERULAR FILTRATION RATE 43.5 (>45); GLUCOSE, FASTING 114 MG/DL (70-100); NT-PRO BNP 1159 PG/ML (<125); SODIUM LEVEL 133 MEQ/L (136-145); THYROID STIMULATING HORMONE 0.562 uIU/ML (0.358-3.740); TOTAL PROTEIN 7.8 GM/DL (6.4-8.2); TROPONIN I < 0.02 NG/ML (< 0.10)
--- NOTE | 2020-08-11 20:55 | REPVR ---
PROCEDURE INFORMATION: Exam: XR Chest, 1 View Exam date and time: 08/11/2020 7:49 PM Age: 64 years old Clinical indication: Cough; Additional info: Dyspnea/cough TECHNIQUE: Imaging protocol: XR of the chest Views: 1 view. COMPARISON: [place] PORTABLE CHEST X-RAY 08/05/2020 3:33 PM FINDINGS: Tubes, catheters and devices: External monitoring devices are present. Lungs: Mild interstitial prominence bilaterally. 1.6 cm nodule at the left lung base without change from previous. Pleural space: Unremarkable. No pleural effusion. No pneumothorax. Heart/Mediastinum: Unremarkable. No cardiomegaly. Bones/joints: Unremarkable. Other findings: The patient is rotated to the right. IMPRESSION: 1. Mild interstitial prominence 2. 1.6 cm nodule at the left lung base Electronically signed by: Kelly Hodge On 08/11/2020 20:54:33 PM
[2020-08-11 21:55] VITALS: BP 156/70
--- NOTE | 2020-08-13 20:05 | ED PDOC ---
Post-Departure Follow-Up adrian grace faxed formal report of cxr for fu Annette Castro MD Aug 13, 2020 20:05
== END 2020-08-11 22:48 | disposition home or self-care (01) ==
LOC: M ED 17:10
DX: J44.9 Chronic obstructive pulmonary disease, unspecified (principal); R00.0 Tachycardia, unspecified; R91.8 Other nonspecific abnormal finding of lung field; I50.9 Heart failure, unspecified; J45.909 Unspecified asthma, uncomplicated; E66.9 Obesity, unspecified; E07.9 Disorder of thyroid, unspecified; E73.9 Lactose intolerance, unspecified; I34.1 Nonrheumatic mitral (valve) prolapse; Z98.61 Coronary angioplasty status; Z77.22 Contact with and (suspected) exposure to environmental tobacco smoke (acute) (chronic); Z79.899 Other long term (current) drug therapy; Z91.018 Allergy to other foods

== ENCOUNTER → 2020-09-25 | Outpatient (REF) | payer MEDICARE, MEDICAID ==
[~2020-09-25] MED LIST changes: +HYDR-3490 PO; -HYDR25TAB PO; +MONT10TA10 PO; -MONT5TAB2 PO
[2020-09-25 13:24] LABS: BASO # 0.1 10^3/uL (0.0-0.2); BASO % 0.5 % (0.0-1.0); EOS # 0.2 10^3/uL (0.0-0.5); EOS % 2.4 % (0.0-3.0); HEMATOCRIT 37.1 % (36.0-47.0); HEMOGLOBIN 11.5 g/dl (12.0-15.5); LYMPH # 1.2 10^3/uL (1.5-5.0); MEAN CORPUSCULAR HEMOGLOBIN 24.7 pg (27.0-33.0); MEAN CORPUSCULAR VOLUME 79.8 fl (80.0-96.0); MONO # 0.7 10^3/uL (0.0-0.8); MONO % 7.8 % (0.0-5.0); NEUTROPHILS # 7.2 10^3/uL (1.5-8.5); NEUTROPHILS % 75.9 % (36.0-66.0); PLATELET COUNT, AUTOMATED 351 10^3/uL (150-450); RED BLOOD COUNT 4.65 10^6/uL (4.00-5.40); WHITE BLOOD COUNT 9.5 10^3/uL (4.0-10.0)
[2020-09-25 13:55] LABS: ALBUMIN 3.6 GM/DL (3.2-5.2); ALT/SGPT 22 U/L (12-78); BILIRUBIN,TOTAL 1.1 MG/DL (0.2-1.0); BLOOD UREA NITROGEN 6 MG/DL (7-18); CALCIUM LEVEL 9.7 MG/DL (8.8-10.2); CARBON DIOXIDE LEVEL 33 MEQ/L (21-32); CHLORIDE LEVEL 97 MEQ/L (98-107); CHOLESTEROL LEVEL 157 MG/DL (<200); CHOLESTEROL RISK RATIO 3.204 (<5); CREATININE FOR GFR 0.67 MG/DL (0.55-1.30); GLOMERULAR FILTRATION RATE > 60.0 (>45); GLUCOSE, FASTING 90 MG/DL (70-100); HDL CHOLESTEROL 49 MG/DL (>40); LDL CHOLESTEROL 85 MG/DL (<100); NON-HDL-C 108 MG/DL; POTASSIUM SERUM 3.7 MEQ/L (3.5-5.1); SODIUM LEVEL 138 MEQ/L (136-145); TOTAL PROTEIN 6.5 GM/DL (6.4-8.2); TRIGLYCERIDES LEVEL 117 MG/DL (<150)
== END ==
LOC: M LAB REF 12:27
PROVIDERS: ATTEND Nurse Practitioner Family
DX: R74.8 Abnormal levels of other serum enzymes (principal); E78.5 Hyperlipidemia, unspecified; D72.829 Elevated white blood cell count, unspecified

== ENCOUNTER → 2021-04-02 | Outpatient (CLI) | payer MEDICARE, OTHER ==
[~2021-04-02] MED LIST changes: -ARIP1TAB2 PO; +ARIP1TAB43 PO; +BACTDSTA PO; -MONT10TA10 PO; +MONT10TA97 PO; -SULF1TAB93 PO
== END ==
LOC: M WHC 08:39
PROVIDERS: ATTEND Nurse Practitioner Family
DX: R92.8 Other abnormal and inconclusive findings on diagnostic imaging of breast (principal)

== ENCOUNTER 2022-03-21 10:25 | Emergency (ER) | payer MEDICARE, OTHER ==
[~2022-03-21] VITALS: Ht 142.2 cm; Wt 87.7 kg
[2022-03-21 10:26] VITALS: BP 192/105
[2022-03-21] MEDS ORDERED: FUROSEMIDE 40MG/4ML VIAL (J1940) IV ONE (14:30)
[2022-03-21 15:04] LABS: HEMATOCRIT 38.7 % (36.0-47.0); HEMOGLOBIN 12.2 g/dl (12.0-15.5); MEAN CORPUSCULAR HEMOGLOBIN 25.4 pg (27.0-33.0); MEAN CORPUSCULAR HGB CONC 31.5 g/dl (32.0-36.5); MEAN CORPUSCULAR VOLUME 80.6 fl (80.0-96.0); PLATELET COUNT, AUTOMATED 384 10^3/uL (150-450); WHITE BLOOD COUNT 14.8 10^3/uL (4.0-10.0)
[2022-03-21] MEDS ORDERED: POTA1TAB14 PO (16:21)
[2022-03-21] MEDS ORDERED: LASI40TA9 PO (16:21)
[2022-03-21] MEDS ORDERED: POTASSIUM CHLORIDE 10MEQ SR TABLET PO ONE (16:25)
== END 2022-03-21 16:55 | disposition home or self-care (01) ==
LOC: M ED 10:25
DX: R06.9 Unspecified abnormalities of breathing (principal); I50.9 Heart failure, unspecified; E87.6 Hypokalemia; J45.909 Unspecified asthma, uncomplicated; E73.9 Lactose intolerance, unspecified; Z79.890 Hormone replacement therapy; Z79.899 Other long term (current) drug therapy; Z91.018 Allergy to other foods
CPT/HCPCS: 71046; 80047; 83880; 85027; 93970; 96374; 99284; J1940

== ENCOUNTER → 2022-04-16 | Outpatient (CLI) | payer MEDICARE, OTHER ==
[~2022-04-16] MED LIST changes: +LASI40TA9 PO; +POTA1TAB14 PO
== END ==
LOC: M WHC 15:49
PROVIDERS: ATTEND Nurse Practitioner Family
DX: Z12.31 Encounter for screening mammogram for malignant neoplasm of breast (principal)

== ENCOUNTER → 2022-05-30 | Outpatient (CLI) | payer MEDICARE, OTHER ==
[2022-05-30 12:04] LABS: ALBUMIN 3.7 GM/DL (3.2-5.2); BILIRUBIN,DIRECT 0.4 MG/DL (0.0-0.2); BILIRUBIN,TOTAL 1.1 MG/DL (0.2-1.0); BLOOD UREA NITROGEN 10 MG/DL (7-18); CALCIUM LEVEL 9.7 MG/DL (8.8-10.2); CARBON DIOXIDE LEVEL 34 MEQ/L (21-32); CHLORIDE LEVEL 94 MEQ/L (98-107); CREATININE FOR GFR 0.68 MG/DL (0.55-1.30); GLOMERULAR FILTRATION RATE > 60.0 (>45); GLUCOSE, FASTING 138 MG/DL (70-100); MAGNESIUM LEVEL 2.2 MG/DL (1.8-2.4); NT-PRO BNP 420 PG/ML (<125); PHOSPHORUS LEVEL 3.6 MG/DL (2.5-4.9); POTASSIUM SERUM 3.4 MEQ/L (3.5-5.1); SODIUM LEVEL 134 MEQ/L (136-145)
== END ==
LOC: M LAB 09:36
PROVIDERS: ATTEND Internal Medicine Pulmonary Disease
DX: I50.9 Heart failure, unspecified (principal)

== ENCOUNTER → 2022-06-20 | Outpatient (CLI) | payer MEDICARE, OTHER ==
[2022-06-20 15:01] LABS: BLOOD UREA NITROGEN 5 MG/DL (7-18); CALCIUM LEVEL 9.4 MG/DL (8.8-10.2); CARBON DIOXIDE LEVEL 30 MEQ/L (21-32); CHLORIDE LEVEL 100 MEQ/L (98-107); CREATININE FOR GFR 0.64 MG/DL (0.55-1.30); GLOMERULAR FILTRATION RATE > 60.0 (>45); GLUCOSE, FASTING 99 MG/DL (70-100); MAGNESIUM LEVEL 2.4 MG/DL (1.8-2.4); NT-PRO BNP 864 PG/ML (<125); POTASSIUM SERUM 3.9 MEQ/L (3.5-5.1); SODIUM LEVEL 136 MEQ/L (136-145)
== END ==
LOC: M LAB 13:46
PROVIDERS: ATTEND Physician Assistant
DX: I50.9 Heart failure, unspecified (principal)

== ENCOUNTER → 2022-08-20 | Outpatient (REF) | payer MEDICARE, OTHER ==
[~2022-08-20] MED LIST changes: -POTA10CA32 PO; +POTA10CA33 PO
== END ==
LOC: M LAB REF 16:14
PROVIDERS: ATTEND Nurse Practitioner Family
DX: E03.9 Hypothyroidism, unspecified (principal)

== ENCOUNTER → 2022-12-02 | Outpatient (REF) | payer MEDICARE, OTHER, MEDICAID, BC ==
[2022-12-02 19:34] LABS: BASO # 0.1 10^3/uL (0.0-0.2); BASO % 0.9 % (0.0-1.0); EOS # 0.3 10^3/uL (0.0-0.5); EOS % 2.8 % (0.0-3.0); HEMATOCRIT 39.9 % (36.0-47.0); HEMOGLOBIN 12.2 g/dl (12.0-15.5); LYMPH # 1.6 10^3/uL (1.5-5.0); LYMPH % 16.9 % (24.0-44.0); MEAN CORPUSCULAR HEMOGLOBIN 26.3 pg (27.0-33.0); MEAN CORPUSCULAR HGB CONC 30.6 g/dl (32.0-36.5); MEAN CORPUSCULAR VOLUME 86.2 fl (80.0-96.0); MONO # 0.6 10^3/uL (0.0-0.8); MONO % 6.1 % (2.0-8.0); NEUTROPHILS # 6.7 10^3/uL (1.5-8.5); NEUTROPHILS % 72.9 % (36.0-66.0); PLATELET COUNT, AUTOMATED 343 10^3/uL (150-450); RED BLOOD COUNT 4.63 10^6/uL (4.00-5.40); WHITE BLOOD COUNT 9.2 10^3/uL (4.0-10.0)
[2022-12-02 19:57] LABS: ALBUMIN 3.6 G/DL (3.2-5.2); ALKALINE PHOSPHATASE 120 U/L (46-116); ALT/SGPT 18 U/L (7.0-40); AST/SGOT 20 U/L (<34); BILIRUBIN,TOTAL 0.7 MG/DL (0.3-1.2); BLOOD UREA NITROGEN 11 MG/DL (9-23); CALCIUM LEVEL 9.3 MG/DL (8.3-10.6); CARBON DIOXIDE LEVEL 29 MMOL/L (20-31); CHLORIDE LEVEL 100 MMOL/L (98-107); CHOLESTEROL LEVEL 154 MG/DL (<200); CHOLESTEROL RISK RATIO 2.88 (<5); CREATININE FOR GFR 0.71 MG/DL (0.55-1.30); GLOMERULAR FILTRATION RATE > 60.0 (>45); GLUCOSE, FASTING 91 MG/DL (74-106); HDL CHOLESTEROL 53.3 MG/DL (>40); LDL CHOLESTEROL 85.1 MG/DL (<100); MAGNESIUM LEVEL 2.1 MG/DL (1.8-2.4); NON-HDL-C 100.7 MG/DL; POTASSIUM SERUM 4.6 MMOL/L (3.5-5.1); SODIUM LEVEL 136 MMOL/L (136-145); THYROID STIMULATING HORMONE 3.355 uIU/ML (0.55-4.78); TOTAL PROTEIN 6.6 G/DL (5.7-8.2); TRIGLYCERIDES LEVEL 78 MG/DL (<150)
== END ==
LOC: M LAB REF 16:25
PROVIDERS: ATTEND Nurse Practitioner Family
DX: E03.9 Hypothyroidism, unspecified (principal); Z13.228 Encounter for screening for other metabolic disorders

== ENCOUNTER 2023-01-12 08:36 | Day surgery (SDC) | payer MEDICARE, OTHER ==
[~2023-01-12] VITALS: Ht 139.7 cm; Wt 92.6 kg
[~2023-01-12 08:36] MED LIST changes: +ABIL10TA9 PO; +ALBU6.7H6 INH; +NS 1,000 ML IV ONE; +POTA-298 PO; -POTA1TAB14 PO; +SPIR-10 PO; +VALS1TAB66 PO; +ZOLO25TA PO
[2023-01-12] MEDS ORDERED: IPRATROPIUM 0.5MG/ALBUTEROL 2.5MG INH SOL UD 3ML (DUONEB) NEB ONE (09:30)
[2023-01-12] MEDS ORDERED: LIDOCAINE 2% 100MG/5ML SDV (FOR ANES.) As Ordered ONE (10:30)
[2023-01-12] MEDS ORDERED: propofoL 200 MG/20 ML VIAL As Ordered ONE (10:30)
[2023-01-12 10:55] VITALS: BP 120/53
== END 2023-01-12 11:04 | disposition home or self-care (01) ==
LOC: M OPP 08:36
PROVIDERS: ATTEND Internal Medicine Gastroenterology
DX: Z86.010 Personal history of colon polyps (principal); K63.5 Polyp of colon; K57.30 Diverticulosis of large intestine without perforation or abscess without bleeding; K64.8 Other hemorrhoids; Z79.02 Long term (current) use of antithrombotics/antiplatelets; Z79.51 Long term (current) use of inhaled steroids; Z79.890 Hormone replacement therapy; Z79.899 Other long term (current) drug therapy

== ENCOUNTER → 2023-04-17 | Outpatient (CLI) | payer MEDICARE, OTHER ==
[~2023-04-17] MED LIST changes: -NS 1,000 ML IV ONE; -POTA10CA33 PO; +POTA10CA60 PO
== END ==
LOC: M WHC 10:52
PROVIDERS: ATTEND Nurse Practitioner Family
DX: Z12.31 Encounter for screening mammogram for malignant neoplasm of breast (principal)

== ENCOUNTER → 2023-11-26 | Outpatient (REF) | payer MEDICARE, OTHER ==
[2023-11-26 13:48] LABS: BASO # 0.1 10^3/uL (0.0-0.2); BASO % 0.5 % (0.0-1.0); EOS # 0.2 10^3/uL (0.0-0.5); EOS % 1.9 % (0.0-3.0); HEMATOCRIT 36.6 % (36.0-47.0); HEMOGLOBIN 11.6 g/dl (12.0-15.5); LYMPH # 1.8 10^3/uL (1.5-5.0); LYMPH % 17.3 % (24.0-44.0); MEAN CORPUSCULAR HEMOGLOBIN 28.8 pg (27.0-33.0); MEAN CORPUSCULAR HGB CONC 31.7 g/dl (32.0-36.5); MEAN CORPUSCULAR VOLUME 90.8 fl (80.0-96.0); MONO # 0.6 10^3/uL (0.0-0.8); MONO % 5.8 % (2.0-8.0); NEUTROPHILS # 7.5 10^3/uL (1.5-8.5); NEUTROPHILS % 73.9 % (36.0-66.0); PLATELET COUNT, AUTOMATED 252 10^3/uL (150-450); RED BLOOD COUNT 4.03 10^6/uL (4.00-5.40); WHITE BLOOD COUNT 10.1 10^3/uL (4.0-10.0)
[2023-11-26 13:54] LABS: ALBUMIN 3.5 G/DL (3.2-5.2); ALKALINE PHOSPHATASE 101 U/L (46-116); ALT/SGPT 16 U/L (7.0-40); AST/SGOT 21 U/L (<34); BILIRUBIN,TOTAL 0.7 MG/DL (0.3-1.2); BLOOD UREA NITROGEN 9 MG/DL (9-23); CALCIUM LEVEL 8.7 MG/DL (8.3-10.6); CARBON DIOXIDE LEVEL 31 MMOL/L (20-31); CHLORIDE LEVEL 103 MMOL/L (98-107); CHOLESTEROL LEVEL 120 MG/DL (<200); CHOLESTEROL RISK RATIO 3.89 (<5); CREATININE FOR GFR 0.74 MG/DL (0.55-1.30); GLOMERULAR FILTRATION RATE > 60.0 (>45); GLUCOSE, FASTING 94 MG/DL (74-106); HDL CHOLESTEROL 30.8 MG/DL (>40); LDL CHOLESTEROL 66.4 MG/DL (<100); MAGNESIUM LEVEL 2.1 MG/DL (1.8-2.4); NON-HDL-C 89.2 MG/DL; SODIUM LEVEL 139 MMOL/L (136-145); TOTAL PROTEIN 6.4 G/DL (5.7-8.2); TRIGLYCERIDES LEVEL 114 MG/DL (<150)
[2023-11-26 13:57] LABS: THYROID STIMULATING HORMONE 5.739 uIU/ML (0.55-4.78)
[2023-11-26 15:53] LABS: HEMOGLOBIN A1c 5.5 % (4.0-6.0)
== END ==
LOC: M LAB REF 13:06
PROVIDERS: ATTEND Nurse Practitioner Family
DX: E03.9 Hypothyroidism, unspecified (principal); E66.9 Obesity, unspecified; Z79.899 Other long term (current) drug therapy

== ENCOUNTER → 2024-01-14 | Outpatient (REF) | payer OTHER, MEDICAID ==
[~2024-01-14] MED LIST changes: -POTA10CA60 PO; +POTA10CA70 PO
[2024-01-14 15:16] LABS: FREE T4 1.34 NG/DL (0.89-1.76); THYROID STIMULATING HORMONE 2.058 uIU/ML (0.55-4.78)
== END ==
LOC: M LAB REF 12:07
PROVIDERS: ATTEND Nurse Practitioner Family
DX: E03.9 Hypothyroidism, unspecified (principal)

== ENCOUNTER → 2024-02-29 | Outpatient (CLI) | payer OTHER, MEDICAID ==
[2024-02-29 10:41] LABS: CALCIUM LEVEL 9.1 MG/DL (8.3-10.6); CREATININE FOR GFR 1.07 MG/DL (0.55-1.30); GLOMERULAR FILTRATION RATE 54.3 (>45); POTASSIUM SERUM 4.2 MMOL/L (3.5-5.1)
== END ==
LOC: M LAB 09:34
PROVIDERS: ATTEND Physician Assistant
DX: I50.32 Chronic diastolic (congestive) heart failure (principal)

== ENCOUNTER → 2024-04-27 | Outpatient (CLI) | payer MEDICAID, MEDICARE, OTHER ==
[~2024-04-27] MED LIST changes: -ARIP1TAB43 PO; +ARIP20TA51 PO
== END ==
LOC: M WHC 08:44
PROVIDERS: ATTEND Nurse Practitioner Family
DX: Z12.31 Encounter for screening mammogram for malignant neoplasm of breast (principal)

== ENCOUNTER 2024-06-06 15:11 | Emergency (ER) | payer MEDICARE ==
[2024-06-06 16:32] LABS: BASO # 0.1 10^3/uL (0.0-0.2); BASO % 0.4 % (0.0-1.0); EOS # 0.1 10^3/uL (0.0-0.5); HEMATOCRIT 36.8 % (36.0-47.0); LYMPH # 1.4 10^3/uL (1.5-5.0); LYMPH % 11.6 % (24.0-44.0); MEAN CORPUSCULAR HEMOGLOBIN 28.8 pg (27.0-33.0); MEAN CORPUSCULAR HGB CONC 32.6 g/dl (32.0-36.5); MEAN CORPUSCULAR VOLUME 88.5 fl (80.0-96.0); MONO # 0.6 10^3/uL (0.0-0.8); MONO % 4.9 % (2.0-8.0); NEUTROPHILS % 81.8 % (36.0-66.0); PLATELET COUNT, AUTOMATED 276 10^3/uL (150-450); RED BLOOD COUNT 4.16 10^6/uL (4.00-5.40); WHITE BLOOD COUNT 12.2 10^3/uL (4.0-10.0)
[2024-06-06 17:10] LABS: BILIRUBIN,DIRECT 0.3 MG/DL (<0.4); BILIRUBIN,TOTAL 0.9 MG/DL (0.3-1.2); CALCIUM LEVEL 10.2 MG/DL (8.3-10.6); GLOMERULAR FILTRATION RATE 58.7 (>45); POTASSIUM SERUM 4.7 MMOL/L (3.5-5.1); TOTAL PROTEIN 7.3 G/DL (5.7-8.2)
[2024-06-06] MEDS: GASTROGRAFIN SOLUTION 30ML PO SCH (19:10)
[2024-06-06] MEDS ORDERED: ISOVUE-370 76% 100ML VIAL As Ordered ONE (20:22)
[2024-06-06 23:53] VITALS: BP 200/76; TEMP 97; O2SAT 98
== END 2024-06-06 23:57 | disposition home or self-care (01) ==
LOC: M ED 15:11
DX: R19.7 Diarrhea, unspecified (principal); K80.20 Calculus of gallbladder without cholecystitis without obstruction; N20.0 Calculus of kidney; N83.291 Other ovarian cyst, right side; I50.9 Heart failure, unspecified; I10 Essential (primary) hypertension; J44.9 Chronic obstructive pulmonary disease, unspecified; J45.909 Unspecified asthma, uncomplicated; F41.9 Anxiety disorder, unspecified; I34.1 Nonrheumatic mitral (valve) prolapse; E73.9 Lactose intolerance, unspecified; Z79.899 Other long term (current) drug therapy; Z91.018 Allergy to other foods
CPT/HCPCS: 74177; 80048; 80076; 81001; 82150; 83690; 85025; 99284; Q9963; Q9967

== ENCOUNTER 2024-12-05 13:11 | Emergency (ER) | payer MEDICARE ==
[~2024-12-05] VITALS: Ht 142.2 cm; Wt 87.0 kg
[2024-12-05 13:25] VITALS: BP 127/60; TEMP 96.9; O2SAT 95
[2024-12-05 14:34] LABS: BASO % 0.2 % (0.0-1.0); EOS # 0.1 10^3/uL (0.0-0.5); EOS % 0.4 % (0.0-3.0); HEMATOCRIT 37.1 % (36.0-47.0); HEMOGLOBIN 11.9 g/dl (12.0-15.5); LYMPH # 0.9 10^3/uL (1.5-5.0); LYMPH % 6.3 % (24.0-44.0); MEAN CORPUSCULAR HEMOGLOBIN 27.9 pg (27.0-33.0); MEAN CORPUSCULAR HGB CONC 32.1 g/dl (32.0-36.5); MEAN CORPUSCULAR VOLUME 86.9 fl (80.0-96.0); MONO # 0.4 10^3/uL (0.0-0.8); NEUTROPHILS # 12.4 10^3/uL (1.5-8.5); NEUTROPHILS % 89.6 % (36.0-66.0); PLATELET COUNT, AUTOMATED 273 10^3/uL (150-450); RED BLOOD COUNT 4.27 10^6/uL (4.00-5.40); WHITE BLOOD COUNT 13.8 10^3/uL (4.0-10.0)
== END 2024-12-05 15:47 | disposition left against medical advice (07) ==
LOC: EDBD 13:11 → M ED 13:11
DX: Z53.21 Procedure and treatment not carried out due to patient leaving prior to being seen by health care provider (principal)